=== PATIENT | male | born 1960 | race Caucasian/White ===

== ENCOUNTER → 2016-03-14 | Outpatient (CLI) | payer OTHER ==
[2016-03-14 20:40] LABS: Hemoglobin A1C 5.3 % (4.2-6.1)
== END | disposition home or self-care (01) ==
LOC: MMGSC 16:01
PROVIDERS: ATTEND Family Medicine
DX: R73.9 Hyperglycemia, unspecified (principal)
CPT/HCPCS: 36415; 83036

== ENCOUNTER → 2016-05-07 | Outpatient (CLI) | payer OTHER ==
[2016-05-07 20:04] LABS: GGT 86 U/L (15-73); Iron 208 ug/dL (49-181)
[2016-05-07 20:13] LABS: % Iron Saturation 67.8 % (20-50); Total Iron Binding Capacity 307 ug/dL (261-462)
[2016-05-07 21:24] LABS: Hepatitis B Surface Ag Index 0.09
[2016-05-07 21:30] LABS: Hepatitis B Core IgM Index 0.06
[2016-05-07 21:42] LABS: Hepatitis C Virus IgG Ab Negative (Negative); Hepatitis C Virus IgG Index 0.01
== END | disposition home or self-care (01) ==
LOC: MMGSC 10:30
PROVIDERS: ATTEND Family Medicine
DX: R94.5 Abnormal results of liver function studies (principal)
CPT/HCPCS: 36415; 80074; 82103; 82390; 82728; 82977; 83516; 83540; 83550

== ENCOUNTER → 2016-05-29 | Outpatient (CLI) | payer OTHER ==
--- NOTE | 2016-05-29 13:26 | US ---
EXAMINATION TYPE: US abdomen complete DATE OF EXAM: 05/29/2016 12:49 PM COMPARISON: NONE CLINICAL HISTORY: 56-year-old male R94.5 Elevated LFTs. TECHNIQUE: Multiple sonographic images of the abdomen were obtained. FINDINGS: TECHNOLOGIST NOTES: large patient body habitus with large belly. Imaging very limited, pancreas and aorta not seen, liver imaging limited to limited intercostal views. Liver Length: 11.3 cm Gallbladder: Surgically absent CBD: 0.5 cm Spleen: 10.0 cm Right Kidney: 12.2 x 7.2 x 5.8 cm Left Kidney: 11.5 x 6.3 x 5.3 cm Pancreas: Obscured by bowel gas Liver: limited imaging shows echogenic attenuating appearance. Gallbladder: Surgically absent CBD: wnl Spleen: wnl Right Kidney: No hydronephrosis. Left Kidney: No hydronephrosis. Upper IVC: Suboptimally visualized. Abd Aorta: Obscured by overlying bowel gas IMPRESSION: 1. Exam limitations due to large patient body habitus and bowel gas shadowing. A number of structures including the liver were not well seen. 2. However, the visualized portions of the liver do show an echogenic and attenuating appearance sugg esting marked hepatic steatosis. Correlate with LFTs, lipid profile, and patient risk factors. 3. Status post cholecystectomy.
== END | disposition home or self-care (01) ==
LOC: RADUSWWP 12:10
PROVIDERS: ATTEND Family Medicine
DX: R94.5 Abnormal results of liver function studies (principal)
CPT/HCPCS: 76700

== ENCOUNTER → 2016-06-07 | Outpatient (CLI) | payer OTHER ==
--- NOTE | 2016-06-07 15:29 | CT ---
EXAMINATION TYPE: CT ankle RT wo con DATE OF EXAM: 06/07/2016 2:52 PM COMPARISON: NONE HISTORY: Right ankle pain, flat foot, posterior tibial tendonitis, history of rheumatoid arthritis. CT DLP: 216.[address] of the right ankle with reconstruction imaging. TECHNIQUE: Unenhanced CT of the right ankle was performed with bone and soft tissue window settings s ubmitted in the axial coronal and sagittal planes. At a separate workstation 3-[id number] TR imaging was obta ined. FINDINGS: Ankle mortise is intact. Osseous structures are free of fracture. No erosive or destructive changes identified about the ankle. There is ill-definition of the tibialis posterior tendon with pa rtial tear difficult to exclude. Thickening at its insertion site is seen. The flexor digitorum longu s and flexor hallucis longus tendons are intact. There is mild teno synovitis of the peroneal tendons . Peroneal tendons are intact. There is evidence of soft tissue edema. There is flattening of the franchesca ntar arch. Small plantar calcaneal spur is detected. IMPRESSION: 1. Thickening and ill-definition of the tibialis posterior tendon is suspicious for underlying tendin itis with at least partial tear. 2. Flattening of the plantar arch with small plantar calcaneal spur identified.
== END | disposition home or self-care (01) ==
LOC: RADCTMAIN 14:28
PROVIDERS: ATTEND Orthopaedic Surgery
DX: M77.31 Calcaneal spur, right foot (principal)

== ENCOUNTER → 2016-07-06 | Outpatient (CLI) | payer OTHER ==
[2016-07-06 19:08] LABS: Bilirubin, Delta 0.5 mg/dL (0.0-0.2); Total Bilirubin 0.9 mg/dL (0.2-1.3)
== END ==
LOC: MMGSC 16:53
PROVIDERS: ATTEND Family Medicine
DX: R79.89 Other specified abnormal findings of blood chemistry (principal)
CPT/HCPCS: 36415; 80076

== ENCOUNTER → 2016-08-10 | Outpatient (CLI) | payer OTHER | END | disposition home or self-care (01) | LOC: MMGSC 16:58 | PROVIDERS: ATTEND Family Medicine | DX: L73.9 Follicular disorder, unspecified (principal) | CPT/HCPCS: 87070; 87075; 87077; 87186; 87205 ==

== ENCOUNTER → 2016-08-10 | Outpatient (CLI) | payer OTHER ==
[2016-08-10 21:46] LABS: ALT 183 U/L (21-72); AST 108 U/L (17-59); Alkaline Phosphatase 99 U/L (38-126); Bilirubin, Delta 0.3 mg/dL (0.0-0.2); Blood Urea Nitrogen 9 mg/dL (9-20); Cholesterol 192 mg/dL (<200); HDL Cholesterol 50 mg/dL (40-60); Non-African American GFR(MDRD) >60 (>60 ml/min/1.73 sqM); Total Bilirubin 1.3 mg/dL (0.2-1.3); Total Protein 6.5 g/dL (6.3-8.2); Triglycerides 234 mg/dL (<150)
== END | disposition home or self-care (01) ==
LOC: MMGSC 16:04
PROVIDERS: ATTEND Internal Medicine Gastroenterology
DX: R94.5 Abnormal results of liver function studies (principal)
CPT/HCPCS: 80076; 82105; 82465; 82565; 83718; 84478; 84520; 87070; 87075; 87077; 87186; 87205

== ENCOUNTER → 2016-10-25 | Outpatient (CLI) | payer OTHER ==
--- NOTE | 2016-10-25 19:26 | PN ---
DATE OF SERVICE: 10/25/2016 This patient is a 56-year-old gentleman who has been followed in the sleep center for treatment of obstructive sleep apnea/hypopnea syndrome. Recently patient's BiPAP unit developed some whistling which is loud; that happened after it fell. Patient has not been able to use the equipment for the last several nights. Before that, he continued to use the equipment every night , basically without any significant problems. I reviewed his chart. His weight has increased since his previous visit, from 246 pounds to 273 pounds. I checked his BiPAP unit. BiPAP pressure is 12/8 cm of water. Patient demonstrated good compliance with treatment, with usage for the last month 23 out of 30 nights for more than 4 hours. Unfortunately his apnea/hypopnea index increased to 13.7 with central apnea index of 4.8. [place] Sleepiness Scale today is 16, but again patient did not use his equipment for the last several nights. When I checked his machine, I think that the whistling is related to problems with the tube, not the machine. MEDICATIONS: 1. Fentanyl. 2. Lasix. 3. Singulair. 4. Toprol. 5. B12. During physical exam, patient is a pleasant 56-year-old gentleman in no distress. VITAL SIGNS: BP 131/72, HR 64, RR 16. Height 5 feet 10 inches. Weight 273. BMI 39.1. Temperature 97.8. Oxygen saturation at room air 94%. HEENT: PERRLA. EOMI. Evaluation of oropharynx showed tongue protrudes midline; low position of soft palate. NECK: Supple. No JVD. Thyroid is not palpable. LUNGS: Clear to percussion and to auscultation. Good air exchange. No wheezing or rhonchi. HEART: S1, S2 regular. No murmurs, gallops or rubs. ABDOMEN: Obese. EXTREMITIES: No clubbing or cyanosis. CONTRACTS ADMINISTRATOR: Awake, alert and oriented x3. Cranial nerves 2 through 7 are intact. There is no fasciculation or atrophy noted. No focal deficits observed. IMPRESSION: 1. Complex sleep apnea/hypopnea syndrome. At the pressure of 12/8, patient continues at the present time to have some abnormalities of respiration which is obstructive and also central. 2. Obesity; weight increased by about 27 pounds. 3. History of chronic obstructive pulmonary disease. 4. Hypertension. 5. Rheumatoid arthritis. 6. Low testosterone. PLAN: 1. I adjusted BiPAP pressure in the machine up to 15/11 cm of water. 2. Losing weight. 3. Continue to use BiPAP equipment every night. 4. No driving if feeling any sleepiness. 5. Prescription for all BiPAP supplies. BiPAP unit will be checked. Also he will have a new wide tube and all other necessary supplies. Follow-up visit in 2 months. Thank you very much for allowing me to participate in the management of your patient. Sincerely, Gurmeet Conde. , PhD, FAASM. Diplomat of [place] [employer], Sleep Medicine Board by [employer] [facility] [place] [facility]
== END | disposition home or self-care (01) ==
LOC: SLEEP 13:58
PROVIDERS: ATTEND Internal Medicine
DX: G47.33 Obstructive sleep apnea (adult) (pediatric) (principal); E66.9 Obesity, unspecified; I10 Essential (primary) hypertension; M06.9 Rheumatoid arthritis, unspecified

== ENCOUNTER → 2016-12-27 | Outpatient (CLI) | payer OTHER ==
--- NOTE | 2016-12-27 18:17 | PN ---
PROGRESS NOTE DATE OF SERVICE: 12/27/2016 56-year-old gentleman who has been followed in the Sleep Center for treatment of obstructive and central sleep apnea-hypopnea syndrome, complex sleep. The patient is on treatment with BiPAP and he continues to use BiPAP equipment every night for the whole night. During the previous visit, which was 2 months ago because of hypopnea index of 0.7 with central apnea index of 4.8 I increased pressure from 12/8 up to 15/11 cm of water. At the present time, patient feels that 11 cm of water is too high for him because he wakes up and feels suffocation. I reviewed the previous sleep studies again with relationship to his weight. Previous sleep study in 2014 when patient hit ____ _ pounds recommended BiPAP pressure 11/7 and increased weight 20 pounds. Today his weight is I checked his BiPAP unit today. For the last month the patient using equipment every night and /30 nights for more than 4 hours. Average usage is 6.0 hours. Pressure is 15/11. Leak is 7 L/minute which is normal. AHI for the whole month is 14.5. The central apnea index 12.5. For the last night 0.8, which is totally normal. Most of abnormal respiratory events, which have been document . The central apnea index was 12.2 out of a total apnea-hypopnea index 14.5. Subsequently, part of obstructive events only . [place] Sleepiness Scale today is a 18. PHYSICAL EXAMINATION: BP is 167/71, HR 60, RR 16, height 5 feet 10 inches, weight 267, BMI 38.1, temperature 97.7, oxygen saturation room air 95%. HEENT: PERRLA, EOMI. Evaluation of oropharynx showed extremely low position of soft palate. NECK: Supple. No JVD. Thyroid is not palpable. LUNGS: clear to percussion and to auscultation. Good air exchange. No wheezing or rhonchi. HEART: S1, S2 regular. No murmurs, gallops or rubs. ABDOMEN: Obese. Soft and nontender. Bowel sounds are present. No organomegaly appreciated. EXTREMITIES: No cyanosis or clubbing. TRADE MARK EXAMINER: Awake, alert and oriented x3. Cranial nerves II through VII intact. There is no fasciculation or atrophy noted. No focal deficits observed. IMPRESSION: 1. 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 Patient demonstrated practically 100% compliance with treatment, but still reading from the machine showed increased apnea-hypopnea index in mild range with most abnormalities related to central sleep apnea. 2. Obesity. 3. History of chronic obstructive pulmonary disease. 4. Hypertension. 5. Rheumatoid arthritis. 6. History of low testosterone. PLAN: 1. I will decrease pressure down to 11/7 cm of water and I will see patient for followup visit in 2 months. If no improvements, we may consider to proceed with BiPAP titration in the ST mode to fix his breathing. 2. Losing weight. 3. Sleep hygiene with time in bed for at least 8 hours. 4. Prescription for all necessary supplies. Sincerely, Gurmeet Conde MD, PhD, FAASM Diplomat of [place] [employer], Sleep Medicine Board by [employer] MMODL / IJN: [id number] / DAMIAN
== END ==
LOC: SLEEP 16:16
PROVIDERS: ATTEND Internal Medicine
DX: G47.33 Obstructive sleep apnea (adult) (pediatric) (principal); E66.9 Obesity, unspecified; I10 Essential (primary) hypertension; M06.9 Rheumatoid arthritis, unspecified; J44.9 Chronic obstructive pulmonary disease, unspecified

== ENCOUNTER → 2017-03-07 | Outpatient (CLI) | payer OTHER ==
[2017-03-07 21:37] LABS: ALT 96 U/L (21-72); AST 67 U/L (17-59); Alkaline Phosphatase 76 U/L (38-126); Anion Gap 9 mmol/L; Blood Urea Nitrogen 14 mg/dL (9-20); Carbon Dioxide 27 mmol/L (22-30); Chloride 103 mmol/L (98-107); Glucose 96 mg/dL (74-99); Non-African American GFR(MDRD) 59 (>60 ml/min/1.73 sqM); Potassium 5.7 mmol/L (3.5-5.1); Sodium 139 mmol/L (137-145); Total Bilirubin 1.1 mg/dL (0.2-1.3)
== END | disposition home or self-care (01) ==
LOC: MMGSC 11:04
PROVIDERS: ATTEND Family Medicine
DX: Z51.81 Encounter for therapeutic drug level monitoring (principal)
CPT/HCPCS: 36415; 80053

== ENCOUNTER → 2017-03-18 | Outpatient (CLI) | payer OTHER ==
[2017-03-18 17:11] LABS: Potassium 4.6 mmol/L (3.5-5.1)
== END | disposition home or self-care (01) ==
LOC: LABWHC1 16:41
PROVIDERS: ATTEND Family Medicine
DX: E87.5 Hyperkalemia (principal)
CPT/HCPCS: 36415; 80051

== ENCOUNTER 2017-11-07 09:51 | Inpatient (IN) | payer OTHER ==
--- NOTE | 2017-11-07 10:07 | ED ---
Extremity Problem HPI - General Chief complaint: Extremity Problem,Nontraumatic Stated complaint: foot infection Time Seen by Provider: 11/07/17 10:06 Source: patient, RN notes reviewed, old records reviewed Mode of arrival: ambulatory Limitations: no limitations - History of Present Illness Initial comments: 57-year-old male presents emergency Department with 3 days of right lower extremity swelling. Patient reports he has a history of lymphedema. He reports that he's had a history of cellulitis in this leg in the past. He was seen by his PCP yesterday and started on Rocephin IM as well as Cipro. He is had 2 doses of the antibiotic. Patient reports he's had no fever or chills. He states that he has history of high blood pressure and hyperlipidemia. No history of diabetes. He reports he has full sensation within the foot and leg. He reports that the swelling in the leg at this time is chronic however the redness extending up the leg is new. - Related Data Home Medications Medication Instructions Recorded Confirmed Dexlansoprazole [Dexilant] 60 mg PO QAM 02/01/14 02/24/17 Montelukast [Singulair] 10 mg PO HS 02/01/14 02/24/17 Hydrocodone/Chlorphen P-Stirex 5 ml PO Q8H PRN 09/07/15 02/24/17 [Tussionex] Loperamide HCl [Imodium A-D] 4 mg PO DAILY 09/07/15 02/24/17 Multivitamins, Thera [Multivitamin 1 tab PO DAILY 09/07/15 02/24/17 (formulary)] Sildenafil Citrate [Viagra] 50 mg PO DAILY PRN 09/07/15 02/24/17 Tocilizumab [Actemra] 162.5 mg SQ FR 09/07/15 02/24/17 Calcium/Magnesium/Zinc 1 tab PO DAILY 02/24/17 02/24/17 [Rzczulc-Bsqlxbzic-Qpwd Tablet] Cyanocobalamin [Vitamin B-12] 250 mcg PO DAILY 02/24/17 02/24/17 Furosemide [Lasix] 40 mg PO DAILY PRN 02/24/17 02/24/17 Metaxalone [Skelaxin] 800 mg PO BID PRN 02/24/17 02/24/17 Metoprolol Succinate (ER) [Toprol 100 mg PO HS 02/24/17 02/24/17 XL] Morphine Sulfate ER [Ms Contin] 60 mg PO Q12HR 02/24/17 02/24/17 Morphine Sulfate Ir [MSIR] 15 mg PO TID PRN 02/24/17 02/24/17 Potassium Chloride [Klor-Con 20] 20 meq PO DAILY PRN 02/24/17 02/24/17 hydrOXYzine PAMOATE [Vistaril] 100 mg PO DAILY PRN 02/24/17 02/24/17 Previous Rx's Medication Instructions Recorded Sulfamethox-Tmp 800-160Mg [Bactrim 2 tab PO Q12HR #28 tab 02/27/17 DS 800-160 mg] Allergies Allergy/AdvReac Type Severity Reaction Status Date / Time capsaicin Allergy Rash/Hives Verified 11/07/17 10:04 tramadol Allergy Unknown Verified 11/07/17 10:04 Review of Systems ROS Statement: Those systems with pertinent positive or pertinent negative responses have been documented in the HPI. ROS Other: All systems not noted in ROS Statement are negative. Past Medical History Past Medical History: COPD, GERD/Reflux, Hypertension, Rheumatoid Arthritis (RA) History of Any Multi-Drug Resistant Organisms: MRSA Date of last positivie culture/infection: 12/05/15 MDRO Source:: CHEST Past Surgical History: Cholecystectomy, Orthopedic Surgery Additional Past Surgical History / Comment(s): carpal tunnel Past Psychological History: Depression Smoking Status: Former smoker Past Alcohol Use History: Daily Past Drug Use History: None Reported - Past Family History Mother Family Medical History: COPD Father Family Medical History: COPD General Exam - General Exam Comments Initial Comments: Patient's a pleasant 57-year-old male. Alert and oriented. No significant distress. Limitations: no limitations General appearance: alert, in no apparent distress Head exam: Present: atraumatic Eye exam: Present: normal appearance, PERRL, EOMI. Absent: scleral icterus, conjunctival injection, periorbital swelling ENT exam: Present: normal exam, mucous membranes moist Neck exam: Present: normal inspection. Absent: tenderness, meningismus, lymphadenopathy Respiratory exam: Present: normal lung sounds bilaterally. Absent: respiratory distress, wheezes, rales, rhonchi, stridor Cardiovascular Exam: Present: regular rate, normal rhythm, normal heart sounds. Absent: systolic murmur, diastolic murmur, rubs, gallop, clicks Right Knee exam: Present: normal inspection, full ROM Lower Leg exam: Present: tenderness, swelling (Patient has 3+ pitting edema over the right lower extremity. Patient reports is chronic.), erythema ( Patient has extensive erythema extending up the leg.). Absent: normal inspection Ankle exam: Present: normal inspection, full ROM Foot/Toe exam: Present: normal inspection, full ROM Neurovascular tendon exam: Present: no vascular compromise (Doppler pulses obtained of her dorsalis pedis and posterior tibial. ) Gait: observed and normal Back exam: Present: normal inspection Neurological exam: Present: alert, oriented X3, CN II-XII intact Psychiatric exam: Present: normal affect, normal mood Skin exam: Present: warm, dry, intact, normal color. Absent: rash Course Vital Signs 11/07/17 10:02 Temperature 98.7 F Pulse Rate 56 L Respiratory 18 Rate Blood Pressure 121/75 O2 Sat by Pulse 95 Oximetry Medical Decision Making - Medical Decision Making Patient's a 57-year-old male presents emergency department today with chief complaint of erythema extending over the right lower extremity for the past 3 days. He is seen by his PCP yesterday and started on a.m. Rocephin and Cipro. He's had 2 doses of the antibiotic. He rice today with complaints of pain and redness going from the foot to the leg. He has had a history of lymphedema. He also history of RA and is on immunosuppressants. His evidence of lactic acid elevation of 3.1. Given 2 L bolus. White blood cell count of 13.1. Patient does meet sepsis criteria. We did ultrasound the lower extremity was negative for DVT. X-ray shows evidence of his diffuse soft tissue swelling. The same with his leg being compromised due to lymphedema and immunosuppressants like to make the Patient for IV antibiotics. Patient's case discussed with Dr. Andrew. We'll discuss the case with on-call sound physician. Patient was started on IV antibiotic, Zosyn. - Lab Data Result diagrams: 11/07/17 10:30 11/07/17 10:30 Lab Results 11/07/17 11/07/17 11/07/17 Range/Units 10:30 10:30 10:30 WBC 13.1 H (3.8-10.6) k/uL RBC 4.93 (4.30-5.90) m/uL Hgb 15.7 (13.0-17.5) gm/dL Hct 48.4 (39.0-53.0) % MCV 98.2 (80.0-100.0) fL MCH 31.8 (25.0-35.0) pg MCHC 32.4 (31.0-37.0) g/dL RDW 12.5 (11.5-15.5) % Plt Count 178 (150-450) k/uL Neutrophils % 83 % Lymphocytes % 9 % Monocytes % 5 % Eosinophils % 2 % Basophils % 0 % Neutrophils # 10.8 H (1.3-7.7) k/uL Lymphocytes # 1.2 (1.0-4.8) k/uL Monocytes # 0.6 (0-1.0) k/uL Eosinophils # 0.3 (0-0.7) k/uL Basophils # 0.0 (0-0.2) k/uL Sodium 142 (137-145) mmol/L Potassium 4.5 (3.5-5.1) mmol/L Chloride 108 H (98-107) mmol/L Carbon Dioxide 27 (22-30) mmol/L Anion Gap 7 mmol/L BUN 9 (9-20) mg/dL Creatinine 0.80 (0.66-1.25) mg/dL Est GFR (CKD-EPI)AfAm >90 (>60 ml/min/1.73 sqM) Est GFR (CKD-EPI)NonAf >90 (>60 ml/min/1.73 sqM) Glucose 107 H (74-99) mg/dL Plasma Lactic Acid Richard 3.1 H* (0.7-2.0) mmol/L Calcium 9.0 (8.4-10.2) mg/dL Total Bilirubin 0.8 (0.2-1.3) mg/dL AST 50 (17-59) U/L ALT 85 H (21-72) U/L Alkaline Phosphatase 74 (38-126) U/L Total Protein 6.2 L (6.3-8.2) g/dL Albumin 3.8 (3.5-5.0) g/dL Urine Color Urine Appearance (Clear) Urine pH (5.0-8.0) Ur Specific Robards (1.001-1.035) Urine Protein (Negative) Urine Glucose (UA) (Negative) Urine Ketones (Negative) Urine Blood (Negative) Urine Nitrite (Negative) Urine Bilirubin (Negative) Urine Urobilinogen (<2.0) mg/dL Ur Leukocyte Esterase (Negative) Urine WBC (0-5) /hpf Urine Bacteria (None) /hpf Urine Mucus (None) /hpf 11/07/17 Range/Units 10:30 WBC (3.8-10.6) k/uL RBC (4.30-5.90) m/uL Hgb (13.0-17.5) gm/dL Hct (39.0-53.0) % MCV (80.0-100.0) fL MCH (25.0-35.0) pg MCHC (31.0-37.0) g/dL RDW (11.5-15.5) % Plt Count (150-450) k/uL Neutrophils % % Lymphocytes % % Monocytes % % Eosinophils % % Basophils % % Neutrophils # (1.3-7.7) k/uL Lymphocytes # (1.0-4.8) k/uL Monocytes # (0-1.0) k/uL Eosinophils # (0-0.7) k/uL Basophils # (0-0.2) k/uL Sodium (137-145) mmol/L Potassium (3.5-5.1) mmol/L Chloride (98-107) mmol/L Carbon Dioxide (22-30) mmol/L Anion Gap mmol/L BUN (9-20) mg/dL Creatinine (0.66-1.25) mg/dL Est GFR (CKD-EPI)AfAm (>60 ml/min/1.73 sqM) Est GFR (CKD-EPI)NonAf (>60 ml/min/1.73 sqM) Glucose (74-99) mg/dL Plasma Lactic Acid Richard (0.7-2.0) mmol/L Calcium (8.4-10.2) mg/dL Total Bilirubin (0.2-1.3) mg/dL AST (17-59) U/L ALT (21-72) U/L Alkaline Phosphatase (38-126) U/L Total Protein (6.3-8.2) g/dL Albumin (3.5-5.0) g/dL Urine Color Yellow Urine Appearance Clear (Clear) Urine pH 5.5 (5.0-8.0) Ur Specific Robards 1.024 (1.001-1.035) Urine Protein 1+ H (Negative) Urine Glucose (UA) Negative (Negative) Urine Ketones Negative (Negative) Urine Blood Negative (Negative) Urine Nitrite Negative (Negative) Urine Bilirubin Negative (Negative) Urine Urobilinogen <2.0 (<2.0) mg/dL Ur Leukocyte Esterase Negative (Negative) Urine WBC 1 (0-5) /hpf Urine Bacteria Rare H (None) /hpf Urine Mucus Occasional H (None) /hpf - Radiology Data Radiology results: report reviewed Venous Doppler ultrasound is negative for DVT. X-ray of the tib-fib shows no acute osseous around. Diffuse soft tissue edema correlating for posterior medical postinfectious edema. No acute fracture or dislocation. If symptoms persist follow-up in 7-10 days could be obtained. Diffuse soft tissue edema. Disposition Clinical Impression: Cellulitis of right leg, Leukocytosis, Elevated lactic acid level Disposition: ADMITTED IP TO THIS [facility] Condition: Stable Is patient prescribed a controlled substance at d/c from ED?: No Referrals: Shawanda Pruett MD [Primary Care Provider] - 1-2 days Time of Disposition: 11:36
[2017-11-07] MEDS ORDERED: SODIUM CHLORIDE 0.9% 1,000 ML IV ONE ×2 (10:18→11:27)
[2017-11-07] MEDS ORDERED: KETOROLAC 30 MG/ML 1 ML VIAL IVP STA (10:18)
[2017-11-07] MEDS ORDERED: PIPERACILLIN-TAZOBACTAM 3.375 GM in DEXTROSE/WATER 1 50ML.BAG IVPB STA (10:18)
[2017-11-07] MEDS: SODIUM CHLORIDE 0.9% 1,000 ML IV SCH ×2 (10:40→22:03)
[2017-11-07 10:57] LABS: Basophils % (A) 0 %; Eosinophils # (A) 0.3 k/uL (0-0.7); Eosinophils % (A) 2 %; HCT 48.4 % (39.0-53.0); HGB 15.7 gm/dL (13.0-17.5); Lymphocytes # (A) 1.2 k/uL (1.0-4.8); Lymphocytes % (A) 9 %; MCH 31.8 pg (25.0-35.0); MCHC 32.4 g/dL (31.0-37.0); MCV 98.2 fL (80.0-100.0); Mean Platelet Volume 6.4; Monocytes # (A) 0.6 k/uL (0-1.0); Monocytes % (A) 5 %; Neutrophils # (A) 10.8 k/uL (1.3-7.7); Neutrophils % (A) 83 %; Platelet Count 178 k/uL (150-450); RBC 4.93 m/uL (4.30-5.90); RDW 12.5 % (11.5-15.5); WBC 13.1 k/uL (3.8-10.6)
[2017-11-07 11:05] LABS: ALT 85 U/L (21-72); AST 50 U/L (17-59); Albumin 3.8 g/dL (3.5-5.0); Alkaline Phosphatase 74 U/L (38-126); Anion Gap 7 mmol/L; Blood Urea Nitrogen 9 mg/dL (9-20); Carbon Dioxide 27 mmol/L (22-30); Chloride 108 mmol/L (98-107); Glucose 107 mg/dL (74-99); Potassium 4.5 mmol/L (3.5-5.1); Sodium 142 mmol/L (137-145); Total Bilirubin 0.8 mg/dL (0.2-1.3); Total Protein 6.2 g/dL (6.3-8.2)
[2017-11-07 11:23] LABS: Appearance,Urine Clear (Clear); Bacteria,Urine Rare /hpf; Bilirubin,Urine Negative (Negative); Blood,Urine Negative (Negative); Color,Urine Yellow; Glucose,Urine (UA) Negative (Negative); Ketones,Urine Negative (Negative); Leukocyte Esterase,Urine Negative (Negative); Mucus,Urine Occasional /hpf; Nitrite,Urine Negative (Negative); PH, Urine 5.5 (5.0-8.0); Protein,Urine 1+ (Negative); Specific Gravity,Urine 1.024 (1.001-1.035); Urobilinogen,Urine <2.0 mg/dL (<2.0); WBC,Urine 1 /hpf (0-5)
--- NOTE | 2017-11-07 11:23 | US ---
EXAMINATION TYPE: US venous doppler duplex LE RT DATE OF EXAM: 11/07/2017 11:08 AM COMPARISON: 02/24/2017 CLINICAL HISTORY: Pain. Right leg swelling and redness SIDE PERFORMED: Right TECHNIQUE: The lower extremity deep venous system is examined utilizing real time linear array sonog tre with graded compression, doppler sonography and color-flow sonography. VESSELS IMAGED: External Iliac Vein (EIV) Common Femoral Vein Deep Femoral Vein Greater Saphenous Vein * Femoral Vein Popliteal Vein Small Saphenous Vein * Proximal Calf Veins (* superficial vessels) Right Leg: Negative for DVT IMPRESSION: 1. No diagnostic evidence of DVT as visualized.
--- NOTE | 2017-11-07 11:31 | XR ---
EXAMINATION TYPE: XR tibia fibula RT DATE OF EXAM: 11/07/2017 COMPARISON: NONE HISTORY: Pain TECHNIQUE: Two views are submitted. FINDINGS: The osseous structures are intact. The joint spaces are preserved. Vascular calcifications noted. Di ffuse soft tissue edema noted. IMPRESSION: 1. No acute osseous abnormality. 2. Diffuse soft tissue edema correlate for posttraumatic or postinfectious edema.
--- NOTE | 2017-11-07 11:33 | XR ---
EXAMINATION TYPE: XR foot complete RT DATE OF EXAM: 11/07/2017 COMPARISON: NONE HISTORY: Pain TECHNIQUE: Three views are submitted. FINDINGS: The osseous structures are intact. There is no acute fracture or dislocation. Joint spaces are p reserved. Diffuse soft tissue edema noted and is arthropathy of the first no bony destructive changes . Small plantar calcaneal spur. IMPRESSION: 1. No acute fracture or dislocation. If symptoms persist, follow-up exam in 7 to 10 days could be ob tained. 2. Diffuse soft tissue edema.
[2017-11-07] MEDS ORDERED: IBUPROFEN 400 MG TAB PO PRN (11:44)
[2017-11-07] MEDS ORDERED: traMADol 50 MG TAB PO PRN ×2 (11:44→12:05)
[2017-11-07] MEDS ORDERED: oxyCODONE-APAP 5-325MG 1 EACH TAB PO PRN (11:44)
[2017-11-07] MEDS ORDERED: NALOXONE 0.4 MG/ML 1 ML VIAL IV PRN ×2 (11:44→12:43)
[2017-11-07] MEDS ORDERED: ONDANSETRON 4 MG/2 ML VIAL IVP PRN (11:44)
[2017-11-07] MEDS ORDERED: ACETAMINOPHEN TAB 325 MG TAB PO PRN (11:44)
[2017-11-07] MEDS ORDERED: LOPERAMIDE 2 MG CAP PO PRN (12:43)
[2017-11-07] MEDS ORDERED: IPRATROPIUM-ALBUTEROL 3 ML NEB INHALATION PRN (13:20)
--- NOTE | 2017-11-07 13:22 | P.HPIM ---
History of Present Illness H&P Date: 11/07/17 Chief Complaint: Right lower extremity swelling 57-year-old male with PMH of rheumatoid arthritis, hypertension, COPD, GERD presents the ED for right lower extremity swelling and redness. Patient reports chronic swelling of his right lower extremity after an inguinal hernia surgery many years ago due to lymphedema. Over the past 3 days patient reports increased redness and warmth of his right lower extremity. Patient reports going to his PCP yesterday and receiving an injection and ciprofloxacin. When the redness and swelling did not improve this morning, patient decided to go to the ED. Patient reports 3 other incidents of cellulitis, last episode in February. His PCP has been trying to set up an appointment with infectious disease Dr. Cherry. He denies any prolonged immobilization or insect bites. He denies any headache, nausea, vomiting, fever, chills, chest pain, shortness of breath, palpitations, changes in urination or bowel habits. He endorses a chronic cough. He denies dizziness, numbness weakness or tingling. Review of Systems All systems: negative Past Medical History Past Medical History: COPD, GERD/Reflux, Hypertension, Rheumatoid Arthritis (RA) History of Any Multi-Drug Resistant Organisms: MRSA Date of last positivie culture/infection: 12/05/15 MDRO Source:: CHEST Past Surgical History: Cholecystectomy, Orthopedic Surgery Additional Past Surgical History / Comment(s): carpal tunnel Past Psychological History: Depression Smoking Status: Former smoker Past Alcohol Use History: Daily Past Drug Use History: None Reported - Past Family History Mother Family Medical History: COPD Father Family Medical History: COPD Medications and Allergies Home Medications Medication Instructions Recorded Confirmed Type Dexlansoprazole [Dexilant] 60 mg PO QAM 02/01/14 11/07/17 History Montelukast [Singulair] 10 mg PO HS 02/01/14 11/07/17 History Hydrocodone/Chlorphen P-Stirex 5 ml PO Q8H PRN 09/07/15 11/07/17 History [Tussionex] Loperamide HCl [Imodium A-D] 4 mg PO DAILY PRN 09/07/15 11/07/17 History Multivitamins, Thera [Multivitamin 1 tab PO DAILY 09/07/15 11/07/17 History (formulary)] Tocilizumab [Actemra] 162.5 mg SQ PARKER 09/07/15 11/07/17 History Calcium/Magnesium/Zinc 1 tab PO BID 02/24/17 11/07/17 History [Mslxcjw-Asaknthgp-Xqzy Tablet] Cyanocobalamin [Vitamin B-12] 250 mcg PO DAILY 02/24/17 11/07/17 History Metaxalone [Skelaxin] 800 mg PO QID PRN 02/24/17 11/07/17 History Metoprolol Succinate (ER) [Toprol 100 mg PO HS 02/24/17 11/07/17 History XL] Morphine Sulfate Ir [MSIR] 15 mg PO BID PRN 02/24/17 11/07/17 History hydrOXYzine PAMOATE [Vistaril] 100 mg PO DAILY PRN 02/24/17 11/07/17 History Morphine Sulfate ER [Ms Contin] 30 mg PO Q12HR 11/07/17 11/07/17 History Sildenafil Citrate [Viagra] 100 mg PO DAILY PRN 11/07/17 11/07/17 History Allergies Allergy/AdvReac Type Severity Reaction Status Date / Time capsaicin Allergy Rash/Hives Verified 11/07/17 11:52 tramadol Allergy Vomiting Verified 11/07/17 11:52 Physical Exam Vitals: Vital Signs Temp Pulse Resp BP Pulse Ox 11/07/17 12:14 97.8 F 52 L 18 124/67 97 11/07/17 10:02 98.7 F 56 L 18 121/75 95 Intake and Output 11/06/17 11/07/17 11/07/17 22:59 06:59 14:59 Other: Weight 117.934 kg General: [non toxic], [no distress], [appears at stated age] Derm: [warm], [dry] Head: [atraumatic], [normocephalic], [symmetric] Eyes: [EOMI], [no lid lag], [anicteric sclera] Mouth: [no lip lesion], [mucus membranes moist] Cardiovascular: [S1S2 reg], [no murmur], DP pulses + in LLE Lungs: [CTA bilateral], [no rhonchi, no rales] , [no accessory muscle use] Abdominal: [soft], [ nontender to palpation], [no guarding], [no appreciable organomegaly] Ext: [no gross muscle atrophy], [RLE 2+ edema with erythema and warmth.] Neuro: [ CN II-XI grossly intact], [no focal neuro deficits] Psych: [Alert], [oriented], [appropriate affect] Results CBC & Chem 7: 11/07/17 10:30 11/07/17 10:30 Labs: Abnormal Lab Results - Last 24 Hours (Table) 11/07/17 11/07/17 11/07/17 Range/Units 10:30 10:30 10:30 WBC 13.1 H (3.8-10.6) k/uL Neutrophils # 10.8 H (1.3-7.7) k/uL Chloride 108 H (98-107) mmol/L Glucose 107 H (74-99) mg/dL Plasma Lactic Acid Richard 3.1 H* (0.7-2.0) mmol/L ALT 85 H (21-72) U/L Total Protein 6.2 L (6.3-8.2) g/dL Urine Protein (Negative) Urine Bacteria (None) /hpf Urine Mucus (None) /hpf 11/07/17 Range/Units 10:30 WBC (3.8-10.6) k/uL Neutrophils # (1.3-7.7) k/uL Chloride (98-107) mmol/L Glucose (74-99) mg/dL Plasma Lactic Acid Richard (0.7-2.0) mmol/L ALT (21-72) U/L Total Protein (6.3-8.2) g/dL Urine Protein 1+ H (Negative) Urine Bacteria Rare H (None) /hpf Urine Mucus Occasional H (None) /hpf Comments: Foot x-ray report reviewed Venous US: report reviewed Thrombosis Risk Factor Assmnt - Choose All That Apply Any of the Below Risk Factors Present?: Yes Each Factor Represents 1 point: Abnormal pulmonary function (COPD), Age 41-60 years Other Risk Factors: No Thrombosis Risk Factor Assessment Total Risk Factor Score: 2 Thrombosis Risk Factor Assessment Level: Low Risk Assessment and Plan Assessment: Assessment and Plan 1. RLE Cellulitis: Patient does not meet SIRS criteria. VSS. Lactic acid 3.1. Afebrile but leukocytosis of 13.1. Venous duplex negative for DVT. XR confirms soft tissue edema. Pain management with Percocet, Tylenol and Motrin. Continue Zosyn 3.375 mg IV TID. Continue NS 100 ml/h. FU BCx, repeat Lactic acid, ID consult 2. RA: Takes Tocilizumab 162 mg SQ QSun. Pain management with MSIR 45 mg PO BID , sees Dr. oDrado outPT. Follows Rheumatology outPT. 3. HTN: BP 124/67. Continue Metoprolol 100 mg PO QHS. Monitor vitals, adjust medications at necessary. 4. COPD: No inhalers at home. Continue Singulair 10 mg PO QHS. DuoNeb Q6 PRN for SOB. 5. GERD: Protonix 40 mg PO QAM. 6. DVT Prophylaxis: Heparin 5000 units SQ BID. The patient is admitted with an anticipated greater than 2 midnight stay for evaluation of Cellulitis Surrogate decision-maker: CODE STATUS: Full code DVT prophylaxis: Heparin Anticipated discharge date: [address]: Home
[2017-11-07] MEDS: MORPHINE SULFATE IR 15 MG TABLET PO SCH ×2 (13:38→16:48)
[2017-11-07] MEDS ORDERED: PIPERACILLIN-TAZOBACTAM 3.375 GM in DEXTROSE/WATER 1 50ML.BAG IVPB SCH (17:00)
[2017-11-07] MEDS: HEPARIN SODIUM,PORCINE 5,000 UNIT/ML 1 ML VIAL SQ SCH (21:21)
[2017-11-07] MEDS: METOPROLOL SUCCINATE (ER) 100 MG TAB.ER.24H PO SCH (21:23)
[2017-11-07] MEDS: MONTELUKAST 10 MG TAB PO SCH (21:24)
[2017-11-07] MEDS: MORPHINE SULFATE ER 30 MG TABLET PO SCH (21:24)
[2017-11-07] MEDS ORDERED: VANCOMYCIN IV PER PHARMACY 1 EACH MISC MISCELLANE PRN (22:29)
--- NOTE | 2017-11-07 22:47 | P.CONS ---
History of Present Illness - Reason for Consult Consult date: 11/07/17 - Chief Complaint Pain and swelling to the right leg - History of Present Illness 57-year-old male with history of obesity, COPD and rheumatoid arthritis presents for a third bout of significant swelling pain and erythema in his right foot and lower extremity. The patient relates that his first bout of cellulitis and lymphangitis to the right upper extremity was just a few years ago. He relates that he had had some abdominal surgery and there was some damage to the lymph nodes into the right pelvis. Afterward he developed swelling to the right lower extremity and was diagnosed with some lymphedema. He utilizes a stocking pump to the right lower extremity. Despite that he did have a bout of cellulitis earlier this year short hospitalization. He continues to elevate the limb, wear compression stocking and monitor himself. He relates despite utilizing the sequential pump he started developing sudden onset of worsening swelling, erythema and constantly sought care to prevent further complication. He has not had high-grade fever chills or rigors but felt warm and flushed. He has no recollection of injury or trauma to the foot or limb. He does relate that he was seen by the [facility] and underwent endovascular treatment of his incompetent veins were he was having reflux. This was performed to both lower extremities and left leg had significant improvement on the right leg has continued to have difficulties. He does have a known history of rheumatoid arthritis, and does have Actemera injections given for his rheumatoid arthritis. He also does take Singulair for his pulmonary disease. The patient is not on steroids and has not been recently and does not take methotrexate. Review of Systems Pleasant 57-year-old male who is not in jeet distress HEENT:Denies headache or acute visual change. Denies sinus or mouth discomforts. Denies neck stiffness or pain. Denies significant oral cavity pain. Denies difficulty on swallowing. Lungs: Denies significant shortness of breath, cough, sputum production, or hemoptysis. Cardiovascular: Denies significant shortness of breath, chest pain, chest wall pain, orthopnea, dyspnea on exertion, syncope Gastrointestinal:Denies nausea, vomiting, diarrhea, constipation, hematemesis, melena, hematochezia. No no significant change of bowel habit noticed. Musculoskeletal: Has significant chronic musculoskeletal pain from his RA, he is a chronic right lower extremity swelling Skin: As per the HPI Neuro: Denies headache or visual change. Denies any new onset weakness or difficulty with ambulation. Denies falls or seizures. Psychiatric:Denies anxiety or depression. Endocrine: Denies significant fatigue, denies significant weight loss or weight gain. Past Medical History Past Medical History: COPD, GERD/Reflux, Hypertension, Rheumatoid Arthritis (RA) Additional Past Medical History / Comment(s): Chronic lymphedema, R leg edema, past R lower leg cellulitis, venous insufficiency R leg, chronic generalized pain from RA, immunosuppressed, IBS with chronic diarrhea, chronic allergies, cholecystitis/lithiasis with sepsis-had cholecystectomy. History of Any Multi-Drug Resistant Organisms: MRSA Year Discovered:: 12/05/15 MDRO Source:: CHEST Past Surgical History: Cholecystectomy, Orthopedic Surgery Additional Past Surgical History / Comment(s): carpal tunnel Past Anesthesia/Blood Transfusion Reactions: No Reported Reaction Past Psychological History: Depression Additional Psychological History / Comment(s): and lives in the family home with the . 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 Stop tobacco use 8 years ago. Utilizes his BiPAP for his sleep apnea. Denies significant alcohol or recreational drug use. No animals in the home. 2 adult children one son has developed a brain tumor. Smoking Status: Former smoker Past Alcohol Use History: Daily Past Drug Use History: None Reported - Past Family History Mother Family Medical History: COPD Additional Family Medical History / Comment(s): Mother was a smoker. Father Family Medical History: COPD Additional Family Medical History / Comment(s): Father was a smoker. Medications and Allergies Home Medications and Allergies Comment(s): Current Medications Acetaminophen (Tylenol Tab) 650 mg PO Q6HR PRN PRN Reason: Mild Pain or Fever > 100.5 Albuterol/Ipratropium (Duoneb 0.5 Mg-3 Mg/3 Ml Soln) 3 ml INHALATION RT-QID PRN PRN Reason: Shortness Of Breath Or Wheezing Ceftriaxone Sodium (Rocephin) 2,000 mg IVP Q24HR DEV Heparin Sodium (Porcine) (Heparin) 5,000 unit SQ Q12HR DEV Last Admin: 11/07/17 21:21 Dose: 5,000 unit Sodium Chloride (Saline 0.9%) 1,000 mls @ 100 mls/hr IV .Q10H DEV Last Admin: 11/07/17 22:03 Dose: 100 mls/hr Vancomycin HCl 2,000 mg/ (Sodium Chloride) 500 mls @ 167 mls/hr IVPB Q12HR [facility] Ibuprofen (Motrin) 400 mg PO Q6HR PRN PRN Reason: Mild Pain or Fever > 100.5 Loperamide HCl (Imodium) 2 mg PO Q2HR PRN PRN Reason: Loose Stool Metoprolol Succinate (Toprol Xl) 100 mg PO HS [facility] Last Admin: 11/07/17 21:23 Dose: 100 mg Miscellaneous Information (Pharmacy To Dose Iv Vancomycin) 1 each MISCELLANE DIRECTED PRN PRN Reason: Per Protocol Montelukast Sodium (Singulair) 10 mg PO HS [facility] Last Admin: 11/07/17 21:24 Dose: 10 mg Morphine Sulfate (Ms Contin) 30 mg PO Q12HR [facility] Last Admin: 11/07/17 21:24 Dose: 30 mg Morphine Sulfate (Msir) 15 mg PO BID@1300,1700 [facility] Last Admin: 11/07/17 16:48 Dose: 15 mg Naloxone HCl (Narcan) 0.2 mg IV Q2M PRN PRN Reason: Opioid Reversal Ondansetron HCl (Zofran) 4 mg IVP Q8HR PRN PRN Reason: Nausea And Vomiting Oxycodone/Acetaminophen (Percocet 5-325) 1 each PO Q4HR PRN PRN Reason: Severe Pain Home Medications Medication Instructions Recorded Confirmed Type Dexlansoprazole [Dexilant] 60 mg PO QAM 02/01/14 11/07/17 History Montelukast [Singulair] 10 mg PO 02/01/14 11/07/17 History Hydrocodone/Chlorphen P-Stirex 5 ml PO Q8H PRN 09/07/15 11/07/17 History [Tussionex] Loperamide HCl [Imodium A-D] 4 mg PO DAILY PRN 09/07/15 11/07/17 History Multivitamins, Thera [Multivitamin 1 tab PO DAILY 09/07/15 11/07/17 History (formulary)] Tocilizumab [Actemra] 162.5 mg SQ PARKER 09/07/15 11/07/17 History Calcium/Magnesium/Zinc 1 tab PO BID 02/24/17 11/07/17 History [Fllwhax-Ayxkhkfdz-Dsay Tablet] Cyanocobalamin [Vitamin B-12] 250 mcg PO DAILY 02/24/17 11/07/17 History Metaxalone [Skelaxin] 800 mg PO QID PRN 02/24/17 11/07/17 History Metoprolol Succinate (ER) [Toprol 100 mg PO HS 02/24/17 11/07/17 History XL] Morphine Sulfate Ir [MSIR] 15 mg PO BID PRN 02/24/17 11/07/17 History hydrOXYzine PAMOATE [Vistaril] 100 mg PO DAILY PRN 02/24/17 11/07/17 History Morphine Sulfate ER [Ms Contin] 30 mg PO Q12HR 11/07/17 11/07/17 History Sildenafil Citrate [Viagra] 100 mg PO DAILY PRN 11/07/17 11/07/17 History Allergies Allergy/AdvReac Type Severity Reaction Status Date / Time capsaicin Allergy Rash/Hives Verified 11/07/17 11:52 tramadol Allergy Vomiting Verified 11/07/17 11:52 Physical Exam Vitals: Vital Signs Temp Pulse Pulse Resp BP BP Pulse Ox 11/07/17 22:22 98.0 F 56 L 18 144/81 96 11/07/17 19:55 54 L 121/70 11/07/17 13:42 97.6 F 67 18 128/74 97 11/07/17 12:14 97.8 F 52 L 18 124/67 97 11/07/17 10:02 98.7 F 56 L 18 121/75 95 Intake and Output 11/07/17 11/07/17 11/07/17 06:59 14:59 22:59 Other: Voiding Method Toilet # Voids 1 # Bowel Movements 0 Weight 117.934 kg Pleasant 57-year-old male not in acute distress at this time, but is worried about his right lower extremity HEENT: Anicteric conjunctiva are pink and moist nasal mucosa grossly intact without significant lesions, there is no thrush. Neck: The neck is supple without significant lymphadenopathy or thyromegaly. Lungs: Good bilateral air entry without significant crackles or wheezing. There is no significant bronchial sounds. There is no egophony or dullness. Heart: Regular rate and rhythm with an audible S1-S2, no S3 no S4. There is no significant murmur click or rub, PMI was nondisplaced. Abdomen: Positive bowel sounds soft and nontender without palpable masses or organomegaly. There was no guarding or rebound. Extremities: The upper extremities have excellent pulses they are symmetric, no significant petechiae or telangiectasia. Left lower extremity has only trace pedal edema without significant lesions erythema or cellulitis. Right lower extremity is grossly swollen compared to the left. The foot is very swollen and there some tenderness through dense erythema from the toes to just below the knee. In the medial aspect of the right thigh is evidence of some erythema is minimally tender. There is no significant right inguinal lymphadenopathy and no tenderness into the right groin. No other abnormal lymph nodes are noted. Neuro: Awake alert oriented to person place and time. There are no acute new gross focal sensory motor deficits. Results CBC & Chem 7: 11/07/17 10:30 11/07/17 10:30 Labs: Abnormal Lab Results - Last 24 Hours (Table) 11/07/17 11/07/17 11/07/17 Range/Units 10:30 10:30 10:30 WBC 13.1 H (3.8-10.6) k/uL Neutrophils # 10.8 H (1.3-7.7) k/uL Chloride 108 H (98-107) mmol/L Glucose 107 H (74-99) mg/dL Plasma Lactic Acid Richard 3.1 H* (0.7-2.0) mmol/L ALT 85 H (21-72) U/L Total Protein 6.2 L (6.3-8.2) g/dL Urine Protein (Negative) Urine Bacteria (None) /hpf Urine Mucus (None) /hpf 11/07/17 Range/Units 10:30 WBC (3.8-10.6) k/uL Neutrophils # (1.3-7.7) k/uL Chloride (98-107) mmol/L Glucose (74-99) mg/dL Plasma Lactic Acid Richard (0.7-2.0) mmol/L ALT (21-72) U/L Total Protein (6.3-8.2) g/dL Urine Protein 1+ H (Negative) Urine Bacteria Rare H (None) /hpf Urine Mucus Occasional H (None) /hpf Assessment and Plan (1) Cellulitis of right lower extremity Narrative/Plan: 57-year-old male who has a history of multiple medical troubles including rheumatoid arthritis on immunosuppressant therapy has a known history of chronic lymphedema and venous stasis of the right lower extremity with 2 prior bouts of cellulitis to the right lower extremity. At this time he has his third bout of cellulitis with lymphangitis in his ascending onto the medial thigh. He is not having high-grade fever but does feel somewhat poorly. In this very concerned that the infection does not worsen or become as severe as his first event. His cultures been reviewed and he does have a history of Streptococcus infection, and he is also had MRSA infection on other parts of his body but not on the leg. With these culture results vancomycin and Rocephin will be utilized until we have some further data. Elevation of the limb will be utilized to help with the edema and a Silvadene wrap will also be put into place. The patient relates he is up-to-date with his vaccines. Cultures are in process. Leukocytosis is due to the cellulitis and ascending lymphangitis as is the elevated lactic acid has improved with hydration and starting antibiotic therapy. The patient's immunosuppressive medicines need to be held until the current infectious process resolved. We'll add a multivitamin with zinc to help with his healing process. Current Visit: Yes Status: Acute Code(s): L03.115 - CELLULITIS OF RIGHT LOWER LIMB SNOMED Code(s): 267110411 (2) Acute lymphangitis of right lower extremity Current Visit: Yes Status: Acute Code(s): L03.125 - ACUTE LYMPHANGITIS OF RIGHT LOWER LIMB SNOMED Code(s): 9204113 (3) Rheumatoid arthritis Current Visit: Yes Status: Acute Code(s): M06.9 - RHEUMATOID ARTHRITIS, UNSPECIFIED SNOMED Code(s): 08639754 (4) Immunosuppressed status Current Visit: Yes Status: Acute Code(s): D89.9 - DISORDER INVOLVING THE IMMUNE MECHANISM, UNSPECIFIED SNOMED Code(s): 03575725
[2017-11-07] MEDS: cefTRIAXone IN SWFI 2,000 MG/20 ML SYRINGE IVP SCH (23:08)
[2017-11-07] MEDS: VANCOMYCIN 2,000 MG in SODIUM CHLORIDE 0.9% 500 ML IVPB SCH (23:10)
[2017-11-08] MEDS ORDERED: PANTOPRAZOLE 40 MG TABLET PO SCH (07:30)
[2017-11-08] MEDS: cefTRIAXone IN SWFI 2,000 MG/20 ML SYRINGE IVP SCH (07:40)
[2017-11-08] MEDS: MORPHINE SULFATE ER 30 MG TABLET PO SCH ×2 (07:41→21:14)
[2017-11-08] MEDS: HEPARIN SODIUM,PORCINE 5,000 UNIT/ML 1 ML VIAL SQ SCH ×2 (07:41→21:14)
[2017-11-08] MEDS: SODIUM CHLORIDE 0.9% 1,000 ML IV SCH ×2 (07:41→15:45)
[2017-11-08] MEDS: VANCOMYCIN 2,000 MG in SODIUM CHLORIDE 0.9% 500 ML IVPB SCH ×2 (07:42→21:15)
[2017-11-08 08:11] LABS: Basophils % (A) 1 %; Eosinophils # (A) 0.2 k/uL (0-0.7); Eosinophils % (A) 4 %; HCT 45.8 % (39.0-53.0); HGB 15.3 gm/dL (13.0-17.5); Lymphocytes # (A) 1.3 k/uL (1.0-4.8); Lymphocytes % (A) 21 %; MCH 31.9 pg (25.0-35.0); MCHC 33.5 g/dL (31.0-37.0); MCV 95.3 fL (80.0-100.0); Mean Platelet Volume 6.7; Monocytes # (A) 0.5 k/uL (0-1.0); Monocytes % (A) 7 %; Neutrophils # (A) 3.9 k/uL (1.3-7.7); Neutrophils % (A) 64 %; Platelet Count 177 k/uL (150-450); RBC 4.81 m/uL (4.30-5.90); RDW 12.3 % (11.5-15.5); WBC 6.1 k/uL (3.8-10.6)
[2017-11-08 08:21] LABS: ALT 83 U/L (21-72); AST 55 U/L (17-59); Albumin 3.5 g/dL (3.5-5.0); Alkaline Phosphatase 70 U/L (38-126); Anion Gap 4 mmol/L; Blood Urea Nitrogen 9 mg/dL (9-20); Calcium 8.9 mg/dL (8.4-10.2); Carbon Dioxide 27 mmol/L (22-30); Chloride 110 mmol/L (98-107); Glucose 97 mg/dL (74-99); Potassium 4.7 mmol/L (3.5-5.1); Sodium 141 mmol/L (137-145); Total Bilirubin 0.6 mg/dL (0.2-1.3); Total Protein 5.9 g/dL (6.3-8.2)
[2017-11-08] MEDS ORDERED: PANTOPRAZOLE 40 MG/10 ML VIAL IV SCH (09:00)
[2017-11-08] MEDS ORDERED: MULTIVITAMINS, THERA 1 EACH TAB PO SCH (12:00)
--- NOTE | 2017-11-08 12:43 | P.PN ---
Subjective Progress Note Date: 11/08/17 Principal diagnosis: Right lower extremity redness and swelling Patient was seen and examined. No acute events overnight. Patient reports improvement in his right lower extremity swelling. Able to move his toes freely. He denies any fever, chills, cough, chest pain, shortness of breath, palpitations. Objective - Vital Signs Vital signs: Vital Signs Temp 97.0 F L 11/08/17 06:01 Pulse 46 L 11/08/17 06:01 Resp 17 11/08/17 06:01 BP 112/74 11/08/17 06:01 Pulse Ox 94 L 11/08/17 06:01 Intake & Output 11/07/17 11/08/17 11/08/17 18:59 06:59 18:59 Intake Total 200 Balance 200 Weight 117.934 kg Intake: Oral 200 Other: Voiding Method Toilet # Voids 1 2 2 # Bowel Movements 0 - Exam General: [non toxic], [no distress], [appears at stated age] Derm: [warm], [dry] Head: [atraumatic], [normocephalic], [symmetric] Eyes: [EOMI], [no lid lag], [anicteric sclera] Mouth: [no lip lesion], [mucus membranes moist] Cardiovascular: [S1S2 reg], [no murmur], DP pulses + in LLE Lungs: [CTA bilateral], [no rhonchi, no rales] , [no accessory muscle use] Abdominal: [soft], [ nontender to palpation], [no guarding], [no appreciable organomegaly] Ext: [no gross muscle atrophy], [RLE 1+ edema, wrapped with erythema extending from the wrap.] Neuro: [ CN II-XI grossly intact], [no focal neuro deficits] Psych: [Alert], [oriented], [appropriate affect] - Labs CBC & Chem 7: 11/08/17 07:53 11/08/17 07:53 Labs: Abnormal Lab Results - Last 24 Hours (Table) 11/08/17 Range/Units 07:53 Chloride 110 H (98-107) mmol/L ALT 83 H (21-72) U/L Total Protein 5.9 L (6.3-8.2) g/dL Assessment and Plan Assessment: Assessment and Plan 1. RLE Cellulitis: Patient does not meet SIRS criteria. VSS. Lactic acid 3.1 on admission, repeat is 1.9. Leukocytosis of 13.1 on admission resolved today. Venous duplex negative for DVT. XR confirms soft tissue edema. Pain management with Percocet, Tylenol and Motrin. ID consulted, Abx changed to IV Vancomycin and Ceftriaxone for coverage of MRSA. RLE elevation. Compression stockings. Continue NS 100 ml/h. FU BCx, ID consult 2. RA: Takes Tocilizumab 162 mg SQ QSun. Pain management with MSIR 45 mg PO BID , sees Dr. Dorado outPT. Follows Rheumatology outPT. 3. HTN: BP 112/74. Continue Metoprolol 100 mg PO QHS. Monitor vitals, adjust medications at necessary. 4. COPD: No inhalers at home. Continue Singulair 10 mg PO QHS. DuoNeb Q6 PRN for SOB. 5. GERD: Protonix 40 mg PO QAM. 6. DVT Prophylaxis: Heparin 5000 units SQ BID.
[2017-11-08] MEDS: MORPHINE SULFATE IR 15 MG TABLET PO SCH ×2 (13:18→17:47)
[2017-11-08] MEDS ORDERED: SILVER sulfADIAZINE Cream 400 GM 1 APPLIC APPLIC TOPICAL SCH (15:47)
[2017-11-08] MEDS: METOPROLOL SUCCINATE (ER) 100 MG TAB.ER.24H PO SCH (21:13)
[2017-11-08] MEDS: MONTELUKAST 10 MG TAB PO SCH (21:13)
[2017-11-08] MEDS: PANTOPRAZOLE 40 MG TABLET PO SCH (22:06)
[2017-11-09] MEDS: SODIUM CHLORIDE 0.9% 1,000 ML IV SCH (04:29)
[2017-11-09 06:29] VITALS: BP 147/71; PULSE 55; RESP 16; TEMP 97.9
[2017-11-09] MEDS: MORPHINE SULFATE ER 30 MG TABLET PO SCH (08:37)
[2017-11-09] MEDS: HEPARIN SODIUM,PORCINE 5,000 UNIT/ML 1 ML VIAL SQ SCH (08:39)
[2017-11-09] MEDS: cefTRIAXone IN SWFI 2,000 MG/20 ML SYRINGE IVP SCH (08:39)
[2017-11-09] MEDS: VANCOMYCIN 2,000 MG in SODIUM CHLORIDE 0.9% 500 ML IVPB SCH (08:39)
[2017-11-09] MEDS: PANTOPRAZOLE 40 MG TABLET PO SCH (08:39)
--- NOTE | 2017-11-09 11:48 | P.DS ---
Providers Date of admission: 11/07/17 11:40 Expected date of discharge: 11/09/17 Attending physician: Rodolfo Padron MD Consults: 11/07/17 13:18 Consult Physician Urgent Consulting Provider: Hernandez Cherry Consult Reason/Comments: RLE cellulitis, recurrent Do you want consulting provider notified?: Yes Primary care physician: Shawanda Pruett - Discharge Diagnosis(es) (1) Cellulitis of right lower extremity Current Visit: Yes Status: Acute (2) Rheumatoid arthritis Current Visit: Yes Status: Acute (3) COPD (chronic obstructive pulmonary disease) Current Visit: No Status: Chronic (4) GERD (gastroesophageal reflux disease) Current Visit: No Status: Chronic (5) Hypertension Current Visit: No Status: Chronic Hospital Course: 57-year-old male with PMH of rheumatoid arthritis, hypertension, COPD, GERD presents the ED for right lower extremity swelling and redness. Patient reports chronic swelling of his right lower extremity after an inguinal hernia surgery many years ago due to lymphedema. Over the past 3 days patient reports increased redness and warmth of his right lower extremity. Patient reports going to his PCP yesterday and receiving an injection and ciprofloxacin. When the redness and swelling did not improve this morning, patient decided to go to the ED. Patient reports 3 other incidents of cellulitis, last episode in February. His PCP has been trying to set up an appointment with infectious disease Dr. Cherry. He denies any prolonged immobilization or insect bites. With regard to the right lower extremity cellulitis, patient did not meet SIRS criteria. His vital signs were within normal limits throughout admission. His lactic acid was 3.1 on admission. Repeat was 1.9. Patient had a mild leukocytosis of 13.1 on admission which resolved on the second day. Venous duplex was negative for DVT. Right foot x-ray showed soft tissue edema. Pain was managed with Percocet, Tylenol and Motrin. Infectious disease was consulted and recommended changing IV antibiotics to vancomycin and ceftriaxone for coverage of MRSA. Antibiotics were the escalated by mouth Bactrim on discharge. Otherwise his home medications was resumed for his rheumatoid arthritis, hypertension, COPD, GERD. Patient was seen and examined prior to discharge. Patient reported great improvement in his swelling. Patient denies any foot pain. Patient denies any fever or chills. General: [non toxic], [no distress], [appears at stated age] Derm: [warm], [dry] Head: [atraumatic], [normocephalic], [symmetric] Eyes: [EOMI], [no lid lag], [anicteric sclera] Mouth: [no lip lesion], [mucus membranes moist] Cardiovascular: [S1S2 reg], [no murmur], DP pulses + in LLE Lungs: [CTA bilateral], [no rhonchi, no rales] , [no accessory muscle use] Abdominal: [soft], [ nontender to palpation], [no guarding], [no appreciable organomegaly] Ext: [no gross muscle atrophy], [RLE 1+ edema, improving erythema.] Neuro: [ CN II-XI grossly intact], [no focal neuro deficits] Psych: [Alert], [oriented], [appropriate affect] Assessment and Plan 1. RLE Cellulitis: Patient does not meet SIRS criteria. VSS. Lactic acid 3.1 on admission, repeat is 1.9. Leukocytosis of 13.1 on admission resolved on day 2. Venous duplex negative for DVT. XR confirms soft tissue edema. Pain management with Percocet, Tylenol and Motrin. ID consulted, Abx changed to IV Vancomycin and Ceftriaxone for coverage of MRSA. Will DC IV Abx and DC patient on Bactrim DS BID to complete a total of 14 days. RLE elevation. BCx prelim negative. Compression stockings. 2. RA: Takes Tocilizumab 162 mg SQ QSun. Pain management with MSIR 45 mg PO BID , sees Dr. Dorado outPT. Follows Rheumatology outPT. 3. HTN: BP 147/71. Continue Metoprolol 100 mg PO QHS. Monitor vitals, adjust medications at necessary. 4. COPD: No inhalers at home. Continue Singulair 10 mg PO QHS. DuoNeb Q6 PRN for SOB. 5. GERD: Protonix 40 mg PO QAM. 6. DVT Prophylaxis: Heparin 5000 units SQ BID. This complex discharge took greater than 30 minutes. Pertinent Studies: Foot XR Venous duplex Patient Condition at Discharge: Stable Plan - Discharge Summary Discharge Rx Participant: No New Discharge Prescriptions: New SILVER sulfADIAZINE Cream [Silvadene 1% Cream] 1 applic TOPICAL DAILY #1 tube Sulfamethox-Tmp 800-160Mg [Bactrim DS 800-160 mg] 1 tab PO Q12HR #24 tab Continue Montelukast [Singulair] 10 mg PO HS Dexlansoprazole [Dexilant] 60 mg PO QAM Loperamide HCl [Imodium A-D] 4 mg PO DAILY PRN PRN Reason: Loose Stool Multivitamins, Thera [Multivitamin (formulary)] 1 tab PO DAILY Tocilizumab [Actemra] 162.5 mg SQ PARKER Metoprolol Succinate (ER) [Toprol XL] 100 mg PO HS Morphine Sulfate Ir [MSIR] 15 mg PO BID PRN PRN Reason: Breakthrough Pain Metaxalone [Skelaxin] 800 mg PO QID PRN PRN Reason: Pain Calcium/Magnesium/Zinc [Kywxixy-Tgheaasgo-Mukf Tablet] 1 tab PO BID Cyanocobalamin [Vitamin B-12] 250 mcg PO DAILY hydrOXYzine PAMOATE [Vistaril] 100 mg PO DAILY PRN PRN Reason: Itching Morphine Sulfate ER [Ms Contin] 30 mg PO Q12HR Sildenafil Citrate [Viagra] 100 mg PO DAILY PRN PRN Reason: ED Discontinued Hydrocodone/Chlorphen P-Stirex [Tussionex] 5 ml PO Q8H PRN PRN Reason: Cough Discharge Medication List Dexlansoprazole [Dexilant] 60 mg PO QAM 02/01/14 [History] Montelukast [Singulair] 10 mg PO HS 02/01/14 [History] Loperamide HCl [Imodium A-D] 4 mg PO DAILY PRN 09/07/15 [History] Multivitamins, Thera [Multivitamin (formulary)] 1 tab PO DAILY 09/07/15 [History ] Tocilizumab [Actemra] 162.5 mg SQ PARKER 09/07/15 [History] Calcium/Magnesium/Zinc [Fnnuwcl-Nrwdgfype-Zjfl Tablet] 1 tab PO BID 02/24/17 [ History] Cyanocobalamin [Vitamin B-12] 250 mcg PO DAILY 02/24/17 [History] Metaxalone [Skelaxin] 800 mg PO QID PRN 02/24/17 [History] Metoprolol Succinate (ER) [Toprol XL] 100 mg PO HS 02/24/17 [History] Morphine Sulfate Ir [MSIR] 15 mg PO BID PRN 02/24/17 [History] hydrOXYzine PAMOATE [Vistaril] 100 mg PO DAILY PRN 02/24/17 [History] Morphine Sulfate ER [Ms Contin] 30 mg PO Q12HR 11/07/17 [History] Sildenafil Citrate [Viagra] 100 mg PO DAILY PRN 11/07/17 [History] SILVER sulfADIAZINE Cream [Silvadene 1% Cream] 1 applic TOPICAL DAILY #1 tube [Rx] Sulfamethox-Tmp 800-160Mg [Bactrim DS 800-160 mg] 1 tab PO Q12HR #24 tab [Rx] Follow up Appointment(s)/Referral(s): Shawanda Pruett MD [Primary Care Provider] - 1-2 days Hernandez Cherry MD [STAFF PHYSICIAN] - 2 Weeks Activity/Diet/Wound Care/Special Instructions: Diet: HEART healthy Please follow-up with your PCP within 1-2 days of discharge. Please follow-up with infectious disease Dr. Cherry within 2 weeks of discharge. Please take all medications as advised. Come to the ED or call 911 for worsening fevers greater than 100.4F, chest pain , shortness breath, palpitations. Note to PCP: Please follow up with Blood cultures (prelim negative on discharge) . Discharge Disposition: HOME SELF-CARE Pending Studies Pending Results: Blood culture to be followed by PCP.
[2017-11-10] MEDS ORDERED: VANCOMYCIN TROUGH DUE 1 EACH MISC MISCELLANE ONE (08:00)
== END 2017-11-09 12:49 | disposition home or self-care (01) | DRG 603 ==
LOC: EC 09:51 → 4MS4W 11:40
PROVIDERS: ADMIT Family Medicine; ATTEND Family Medicine
DX: L03.115 Cellulitis of right lower limb (principal); E78.5 Hyperlipidemia, unspecified; F32.9 Major depressive disorder, single episode, unspecified; G47.30 Sleep apnea, unspecified; I10 Essential (primary) hypertension; I89.0 Lymphedema, not elsewhere classified; J44.9 Chronic obstructive pulmonary disease, unspecified; K21.9 Gastro-esophageal reflux disease without esophagitis; M06.9 Rheumatoid arthritis, unspecified; E66.9 Obesity, unspecified; G89.29 Other chronic pain; K58.0 Irritable bowel syndrome with diarrhea; D72.829 Elevated white blood cell count, unspecified; Z87.891 Personal history of nicotine dependence; Z68.36 Body mass index [BMI] 36.0-36.9, adult; Z86.14 Personal history of Methicillin resistant Staphylococcus aureus infection; Z90.49 Acquired absence of other specified parts of digestive tract; Z82.5 Family history of asthma and other chronic lower respiratory diseases
CPT/HCPCS: 36415; 80053; 81001; 83605; 85025; 87040; 96365; 96366; 96375; 99285

== ENCOUNTER → 2018-02-06 | Outpatient (CLI) | payer OTHER ==
--- NOTE | 2018-02-06 18:43 | PN ---
PROGRESS NOTE DATE OF SERVICE: 02/06/2018 57-year-old gentleman has been followed in [facility] Center for treatment of obstructive sleep apnea-hypopnea syndrome. Patient continued to use his BiPAP equipment every night for the whole night without significant problems. According to his , no snoring while he is on treatment with the machine. I checked his BiPAP unit. Usage is for the last 6 months 100% 180 out of 180 nights and 171 nights out of 180 nights more than 4 hours. Average usage is 6.9 hours. Pressure is 13/9 cm of water. Leak is 6 L/minute which is acceptable. Absolutely acceptable number. For the last for the last month, Apnea-hypopnea index is 6.2. Last night is 4.7, which is normal range. [place] Sleepiness Scale today is 10. MEDICATIONS: Singulair, morphine, Toprol, B12. PHYSICAL EXAM: Patient in no distress. VITAL SIGNS: BP 123/69, HR 56, RR 16, height 5 feet 9-3/4 inches, weight 267.6, body mass index 38.6, which is the same weight as last year. Body mass index 38.6, temperature 97.2, oxygen saturation room air 95%. Oropharynx: Extremely low position of soft palate. Abdomen slightly obese. Neck Supple, no JVD. Thyroid is not palpable. LUNGS Clear to percussion and to auscultation. Good air exchange. No wheezing or rhonchi. HEART S1, S2 regular. No murmurs, gallops, or rubs. ABDOMEN: Obese. Soft and nontender. Bowel sounds are present. No organomegaly appreciated. EXTREMITIES No clubbing or cyanosis. FOOD AND BEVERAGE SERVICE MANAGER Awake, alert, and oriented X3. Cranial nerves 2 to 7 intact. There is no fasciculation or atrophy. noted. No focal deficits observed. IMPRESSION: 1. 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 The patient demonstrated a compliance with treatment benefitting from treatment. 2. History of chronic obstructive pulmonary disease. 3. Obesity. 4. Hypertension. 5. History of rheumatoid arthritis. 6. History of low testosterone. PLAN: 1. Patient will continue to use his BiPAP equipment every night for the whole night. 2. Losing weight. 3. Sleep hygiene with regular time in bed for at least 8 hours. 4. No driving if feeling sleepiness. 5. Prescription for all necessary BiPAP supplies including mask, tube, filters. Thank you very much for allowing me to participate in the management of your patient. MMODL / IJN: [id number] /
== END | disposition home or self-care (01) ==
LOC: SLEEP 15:58
PROVIDERS: ATTEND Internal Medicine
DX: G47.31 Primary central sleep apnea (principal); G47.39 Other sleep apnea; E66.9 Obesity, unspecified; J44.9 Chronic obstructive pulmonary disease, unspecified; I10 Essential (primary) hypertension; M06.9 Rheumatoid arthritis, unspecified; Z99.89 Dependence on other enabling machines and devices; Z79.891 Long term (current) use of opiate analgesic; Z79.899 Other long term (current) drug therapy; Z86.39 Personal history of other endocrine, nutritional and metabolic disease; Z68.38 Body mass index [BMI] 38.0-38.9, adult

== ENCOUNTER → 2019-01-05 | Outpatient (CLI) | payer OTHER ==
[2019-01-05 18:10] LABS: Basophils # (A) 0.1 k/uL (0-0.2); Basophils % (A) 1 %; Eosinophils # (A) 0.1 k/uL (0-0.7); Eosinophils % (A) 3 %; HCT 42.4 % (39.0-53.0); HGB 15.1 gm/dL (13.0-17.5); Lymphocytes % (A) 48 %; MCH 34.1 pg (25.0-35.0); MCHC 35.6 g/dL (31.0-37.0); MCV 95.6 fL (80.0-100.0); Mean Platelet Volume 5.6; Monocytes # (A) 0.3 k/uL (0-1.0); Monocytes % (A) 8 %; Neutrophils # (A) 1.5 k/uL (1.3-7.7); Neutrophils % (A) 36 %; Platelet Count 188 k/uL (150-450); RBC 4.44 m/uL (4.30-5.90); RDW 11.9 % (11.5-15.5); WBC 4.2 k/uL (3.8-10.6)
[2019-01-05 23:40] LABS: African American GFR (CKD) 108.7 (60.0-200.0); Anion Gap 8.8 mmol/L (4.00-12.00); BUN/Creat Ratio 15.56 Ratio (12.00-20.00); Calcium 9.2 mg/dL (8.7-10.3); Carbon Dioxide 28.2 mmol/L (21.6-31.8); Potassium 4.2 mmol/L (3.5-5.5)
== END | disposition home or self-care (01) ==
LOC: LABWHC1 17:14
PROVIDERS: ATTEND Internal Medicine
DX: R06.00 Dyspnea, unspecified (principal)
CPT/HCPCS: 36415; 80048; 85025; 85379

== ENCOUNTER → 2019-02-26 | Outpatient (CLI) | payer OTHER ==
--- NOTE | 2019-02-26 17:37 | PN ---
PROGRESS NOTE DATE OF SERVICE: 02/26/2019 This 59-year-old gentleman has been followed in Sleep Center for treatment of obstructive sleep apnea-hypopnea syndrome. The patient continues to use BiPAP equipment every night for the whole night without significant problems. He feels comfortable with his mask. No snoring with the machine. He is getting all his supplies on time. [place] Sleepiness Scale today is increased at 16. Patient still feels sometimes episodes of sleepiness during the day. I checked his BiPAP unit. Pressure is 13/9 cm of water. Usage is 30/30 nights for more than 4 hours with average usage 7.7 hours per night. Leak is only 1 L/minute. Apnea- hypopnea index is 1.6, which is absolutely perfect. MEDICATIONS: 1. Losartan. 2. Metoprolol. 3. Singulair. 4. B12. 5. Morphine. 6. [place]. PHYSICAL EXAMINATION: GENERAL: A pleasant patient in no distress. VITAL SIGNS: BP 126/76, HR 65, RR 18, height 5 feet 11 inches, weight 275.2. His weight has increased by about 7 pounds since his previous visit. Body mass index 38.4. Temperature 98.1, oxygen saturation at room air 96%. HEENT: PERRLA, EOMI. Evaluation of oropharynx showed tongue protrudes midline. Extremely low position of soft palate. NECK: Supple. No JVD. Thyroid is not palpable. LUNGS: Clear to percussion and to auscultation. Good air exchange. No wheezing or rhonchi. HEART: S1, S2 regular. No murmurs, gallops or rubs. ABDOMEN: Obese. EXTREMITIES: No clubbing or cyanosis. SUPERVISOR FEED HOUSE: Awake, alert, and oriented X3. Cranial nerves 2 to 7 intact. There is no fasciculation or atrophy. noted. No focal deficits observed. IMPRESSION: 1. 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 The patient has demonstrated 100% compliance with treatment, benefitting from treatment. 2. History of chronic obstructive pulmonary disease. 3. Obesity. 4. Hypertension. 5. Patient is on cardiac evaluation, planning to have cardiac catheterization on 03/09/2019. 6. History of rheumatoid arthritis. 7. History of low testosterone. PLAN: 1. Patient will continue to use BiPAP equipment every night for the whole night with the same regimen of pressure. 2. Prescription for all necessary BiPAP supplies, including mask, tube, filters. 3. Losing weight. 4. Precautions related to driving. No driving if feeling any sleepiness. Thank you very much for allowing me to participate in the management of your patient. Sincerely, Gurmeet Conde MD, PhD, FAASM Diplomat of [place] [employer] [place] [employer] Specialty Person of [facility] [place] MMODL / TYRONEN: [id number] /
== END | disposition home or self-care (01) ==
LOC: SLEEP 16:45
PROVIDERS: ATTEND Internal Medicine
DX: G47.33 Obstructive sleep apnea (adult) (pediatric) (principal); E66.9 Obesity, unspecified; I10 Essential (primary) hypertension; Z68.38 Body mass index [BMI] 38.0-38.9, adult; Z87.09 Personal history of other diseases of the respiratory system; Z87.39 Personal history of other diseases of the musculoskeletal system and connective tissue; Z86.39 Personal history of other endocrine, nutritional and metabolic disease; Z99.89 Dependence on other enabling machines and devices; Z79.891 Long term (current) use of opiate analgesic; Z79.899 Other long term (current) drug therapy

== ENCOUNTER 2019-03-09 09:25 | Day surgery (SDC) | payer OTHER ==
[2019-03-02 11:41] VITALS: BMI 39.6
[~2019-03-09 09:25] MED LIST: ALPRAZolam 0.25 MG TAB PO PRN; ALPRAZolam 0.5 MG TAB PO PRN; ASPIRIN 325 MG TAB PO ONE; ATORVASTATIN 80 MG TAB PO ONE; NITROGLYCERIN SL TABS 0.4 MG TAB SUBLINGUAL PRN; SODIUM CHLORIDE 0.9% 1,000 ML in EMPTY BAG 1 BAG IV ONE
[2019-03-09] MEDS ORDERED: SODIUM CHLORIDE 0.9% 1,000 ML IV ONE (10:12)
[2019-03-09] MEDS ORDERED: VERAPAMIL SYRINGE (5 MG/10 ML) INTRAARTER ONE (12:23)
[2019-03-09] MEDS ORDERED: HEPARIN SODIUM 1,000 UN/ML (10ML VL) IV ONE ×2 (12:23→13:58)
[2019-03-09] MEDS ORDERED: HEPARIN SODIUM 1,000 UN/ML (10ML VL) ONE ×2 (13:10→13:57)
[2019-03-09] MEDS ORDERED: VERAPAMIL 2.5 MG/ML 2 ML AMP ONE (13:10)
[2019-03-09] MEDS ORDERED: LIDOCAINE 1% INJ 10MG/ML (20 ML MDV) ONE (13:10)
[2019-03-09] MEDS ORDERED: LIDOCAINE 1% INJ 10MG/ML (20 ML MDV) SQ ONE (13:22)
[2019-03-09] MEDS: MIDAZOLAM 2 MG/2 ML VIAL IVP ONE ×2 (13:25→13:37)
[2019-03-09] MEDS ORDERED: CLOPIDOGREL 75 MG TAB ONE (13:37)
[2019-03-09] MEDS ORDERED: CLOPIDOGREL 75 MG TAB PO ONE (13:40)
[2019-03-09] MEDS ORDERED: NITROGLYCERIN 1000MCG/10ML SYRINGE INTRACORON ONE (13:45)
[2019-03-09] MEDS ORDERED: BUDESONIDE 1 MG/2 ML NEBU INHALATION PRN (13:46)
[2019-03-09] MEDS ORDERED: ALBUTEROL NEB (CONC) 2.5 MG/0.5 ML INHALATION PRN (13:46)
[2019-03-09] MEDS ORDERED: CYCLOBENZAPRINE 10 MG TAB PO PRN (13:46)
[2019-03-09] MEDS ORDERED: hydrOXYzine PAMOATE 25 MG CAP PO PRN (13:46)
[2019-03-09] MEDS ORDERED: RX INFO: IV CONTRAST WAS GIVEN 1 EACH MISC MISCELLANE PRN (13:48)
[2019-03-09] MEDS ORDERED: ATROPINE SULFATE 0.1 MG/ML 10ML SYRINGE IV PRN (13:48)
[2019-03-09] MEDS ORDERED: MAG HYDROX/AL HYDROX/SIMETH 30 ML CUP PO PRN (13:48)
[2019-03-09] MEDS ORDERED: IOPAMIDOL-370 125ML BTL INJ ONE (13:59)
[2019-03-09] MEDS: SODIUM CHLORIDE 0.9% 1,000 ML IV SCH (14:07)
[2019-03-09] MEDS: HYDROcodone/APAP 10-325MG 1 EACH TAB PO PRN (20:16)
[2019-03-09] MEDS ORDERED: MONTELUKAST 10 MG TAB PO SCH (21:00)
[2019-03-09] MEDS ORDERED: LOPERAMIDE 2 MG CAP PO SCH (21:00)
[2019-03-09] MEDS ORDERED: ATORVASTATIN 80 MG TAB PO SCH (21:00)
[2019-03-09] MEDS: MORPHINE SULFATE ER 30 MG TABLET PO PRN (22:55)
[2019-03-10] MEDS: SODIUM CHLORIDE 0.9% 1,000 ML IV SCH (05:20)
--- NOTE | 2019-03-10 06:27 | CC ---
CARDIAC CATHETERIZATION REPORT CARDIAC CATHETERIZATION AND PERCUTANEOUS CORONARY INTERVENTION: DATE OF SERVICE: March 09, 2019 PERFORMING PHYSICIAN: Boone Goins MD. PROCEDURE PERFORMED: 1. Selective right and left coronary angiogram. 2. Successful stenting of the mid left circumflex coronary artery using 3.25 x 23 mm Xience TIA which was post dilated using 3.5 mm noncompliant balloon with an excellent angiographic result and reduction of stenosis from 90% to 0%. INDICATION: This is a 59-year-old gentleman with history of hypertension and dyslipidemia who was experiencing intermittent episodes of chest discomfort. He underwent myocardial perfusion imaging stress test and that revealed inferior ischemia. Because of that, a heart catheterization was advised. APPROACH: Right radial artery. COMPLICATION: None. LEVEL OF SEDATION: Moderate with sedation length of 39 minutes. PROCEDURE DESCRIPTION: After obtaining an informed consent, the patient was brought to the cardiac laboratory technician. The right radial artery was cannulated using micropuncture technique, the micropuncture wire passed easily then I placed a 6-Austrian sheath in the right radial artery. After that I gave the patient 2 mg of verapamil IA and 10,000 units of heparin IV. Selective right and left coronary angiogram performed using JR4 and JL3.5 catheters. After that, I did perform percutaneous coronary intervention on the left circumflex coronary artery. Please see a separate paragraph for that. SELECTIVE CORONARY ANGIOGRAM: 1. The right coronary artery is a large caliber vessel and it is a dominant vessel. The RCA has mild disease in the midportion. Proximally appeared to be angiographically normal and distally appeared to be angiographically normal. Distally it bifurcates into PDA and PLV branches both appeared to be angiographically normal. 2. The left main is a large caliber vessel. It is angiographically normal. It bifurcates into left circumflex and left anterior descending artery. 3. The left circumflex is a large caliber vessel. It is a nondominant vessel. The proximal left circumflex appeared to be angiographically normal. The left circumflex in the midportion it gives rise into a large OM branch which has a tight lesion appeared to be in the range of 80% to 90%. After that, the left circumflex continues as a small caliber vessel in the AV groove. 4. The Left Anterior Descending Artery: The proximal left anterior descending artery appears to be angiographically normal. It gives rise into a large diagonal branch which has mild disease only. The LAD in the mid and distal portion appeared to be angiographically normal. PCI OF THE LEFT CIRCUMFLEX: Anticoagulation was initiated using heparin only with continuous ACT monitoring throughout the procedure. Subsequently I did engage the left main using JL3.5 guide. I did wire the left circumflex and OM1 using a run-through wire. After that I did predilatation of the lesion using 3.0 x 12 mm balloon before I deployed 3.25 x 23 mm Xience TIA where the stent was positioned under fluoroscopy guidance and deployed under 14 atmospheres for 20 seconds. I post dilated the stent using 3.25 mm NC balloon which was inflated under 16 to 18 atmospheres for about 20 seconds. The following angiogram showed excellent angiographic results and the procedure was completed without any complication. CONCLUSION: 1. Critical disease involving the mid left circumflex coronary artery. 2. Successful stenting of the mid left circumflex using 3.25 x 23 mm Xience TIA which was postdilated using 3.5 mm NC balloon with an excellent angiographic result. POSTPROCEDURE MANAGEMENT: 1. Dual antiplatelet therapy. 2. Risk factors modifications. 3. Follow up with the patient. MMODL / IJN: [id number] /
[2019-03-10] MEDS ORDERED: PANTOPRAZOLE 40 MG TABLET PO SCH (07:30)
[2019-03-10 07:40] LABS: African American GFR (CKD) >90 (>60 ml/min/1.73 sqM); Anion Gap 6 mmol/L; Blood Urea Nitrogen 11 mg/dL (9-20); Calcium 9.1 mg/dL (8.4-10.2); Carbon Dioxide 25 mmol/L (22-30); Chloride 109 mmol/L (98-107); Glucose 87 mg/dL (74-99); Non-African American GFR(CKD) >90 (>60 ml/min/1.73 sqM); Potassium 4.1 mmol/L (3.5-5.1); Sodium 140 mmol/L (137-145)
[2019-03-10 08:00] LABS: Basophils # (A) 0.1 k/uL (0-0.2); Basophils % (A) 1 %; Eosinophils # (A) 0.2 k/uL (0-0.7); Eosinophils % (A) 5 %; HCT 45.2 % (39.0-53.0); HGB 14.9 gm/dL (13.0-17.5); Lymphocytes # (A) 1.7 k/uL (1.0-4.8); Lymphocytes % (A) 39 %; MCH 31.9 pg (25.0-35.0); MCHC 32.8 g/dL (31.0-37.0); MCV 97.2 fL (80.0-100.0); Mean Platelet Volume 7.1; Monocytes # (A) 0.4 k/uL (0-1.0); Monocytes % (A) 9 %; Neutrophils # (A) 1.8 k/uL (1.3-7.7); Neutrophils % (A) 42 %; Platelet Count 166 k/uL (150-450); RBC 4.65 m/uL (4.30-5.90); WBC 4.3 k/uL (3.8-10.6)
[2019-03-10] MEDS: HYDROcodone/APAP 10-325MG 1 EACH TAB PO PRN (08:03)
[2019-03-10 08:26] VITALS: BP 165/89; PULSE 58; RESP 20; TEMP 97.6
[2019-03-10] MEDS ORDERED: CYANOCOBALAMIN 500 MCG TAB PO SCH (09:00)
[2019-03-10] MEDS ORDERED: METOPROLOL SUCCINATE (ER) 25 MG TAB.ER.24H PO SCH (09:00)
[2019-03-10] MEDS ORDERED: ASPIRIN 325 MG TAB PO SCH (09:00)
[2019-03-10] MEDS ORDERED: VALSARTAN 40 MG TAB PO SCH (09:00)
[2019-03-10] MEDS ORDERED: POTASSIUM CHLORIDE ER 10 MEQ TAB.ER.PRT PO SCH (09:00)
[2019-03-10] MEDS: MORPHINE SULFATE ER 30 MG TABLET PO PRN (09:10)
[2019-03-10] MEDS ORDERED: CLOPIDOGREL 75 MG TAB PO SCH (13:50)
--- NOTE | 2019-03-11 00:50 | DS ---
DISCHARGE SUMMARY ADMISSION DATE: March 09, 2019 DISCHARGE DATE: March 10, 2019 BRIEF HISTORY: This is a 59-year-old gentleman who underwent yesterday heart catheterization and revealed severe disease involving the left circumflex coronary artery. He underwent successful stenting of the left circumflex with an excellent angiographic results and without any complication. The patient was seen this morning. The right radial access is soft and nontender and without any hematomas with good pulse. The patient is going to be discharged home on dual anti-platelet therapy and statin and I will follow up with him next week in the office. MMNISREEN / TYRONEN: [id number] /
== END 2019-03-10 09:39 | disposition home or self-care (01) ==
LOC: CATHCVL 09:25 → 3SCARD 14:41 → CATHCVL 03-10 09:39
PROVIDERS: ATTEND Internal Medicine Interventional Cardiology
DX: I25.110 Atherosclerotic heart disease of native coronary artery with unstable angina pectoris (principal); I10 Essential (primary) hypertension; E78.5 Hyperlipidemia, unspecified; E78.00 Pure hypercholesterolemia, unspecified; J44.9 Chronic obstructive pulmonary disease, unspecified; F17.210 Nicotine dependence, cigarettes, uncomplicated; E66.9 Obesity, unspecified; Z79.51 Long term (current) use of inhaled steroids; Z79.891 Long term (current) use of opiate analgesic; Z79.899 Other long term (current) drug therapy; Z88.6 Allergy status to analgesic agent; Z68.38 Body mass index [BMI] 38.0-38.9, adult
CPT/HCPCS: 93454; 85347; 80048; 85025; C9600; C1887; C1725 ×2; C1769 ×3; C1874; C1894; J2250; J2001; J1644; Q9967

== ENCOUNTER → 2019-12-30 | Outpatient (CLI) | payer OTHER ==
--- NOTE | 2019-12-30 16:29 | XR ---
Left knee HISTORY: M 25.562 4 views of the left knee Exam somewhat limited technically Bone mineralization, joint spaces and alignment are maintained. Atherosclerotic vascular calcificatio ns are noted incidentally. No fracture or dislocation. No definite joint effusion. IMPRESSION: No acute abnormality, MRI may be of benefit
== END | disposition home or self-care (01) ==
LOC: RADXRMAIN 10:32
PROVIDERS: ATTEND Family Medicine
DX: M25.562 Pain in left knee (principal)

== ENCOUNTER → 2020-02-17 | Outpatient (CLI) | payer OTHER ==
--- NOTE | 2020-02-17 19:53 | SFUN ---
SLEEP CENTER FOLLOW UP NOTE DATE OF SERVICE: 02/17/2020 This patient is a 59-year-old gentleman who has been followed in Sleep Center for treatment of obstructive sleep apnea-hypopnea syndrome. Recently he received a new BiPAP unit. This is his first visit after starting to use the new machine. The patient is using a BiPAP equipment every night for the whole night. No problem with equipment. No problems with the supplies. [place] Sleepiness Scale, though, is 13. I checked his BiPAP unit. Pressure is 13/9 cm of water. Usage is 100% of the time for more than 4 hours, with average usage 7.6 hours per night. Leak is 16 L/minute, which is borderline. Apnea-hypopnea index is only 1.5, which is perfect. MEDICATIONS: Losartan, metoprolol, Singulair, B12, [place]. PHYSICAL EXAMINATION: GENERAL: A pleasant patient in no distress. VITAL SIGNS: BP 147/76, HR 66, RR 15, weight 266. Patient's weight increased by 10 pounds since previous visit. Temperature 98.1. Oxygen saturation at room air 96%. HEENT: PERRLA, EOMI. Evaluation of oropharynx showed tongue protrudes midline. Extremely low position of soft palate. Mallampati IV. NECK: Supple. No JVD. Thyroid is not palpable. LUNGS: Clear to percussion and to auscultation. Good air exchange. No wheezing or rhonchi. HEART: S1, S2 regular. No murmurs, gallops or rubs. ABDOMEN: Obese. EXTREMITIES: No clubbing or cyanosis. SKILLED LABORER: Awake, alert, and oriented X3. Cranial nerves 2 to 7 intact. There is no fasciculation or atrophy. noted. No focal deficits observed. IMPRESSION: 1. 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 The patient demonstrated 100% compliance with BiPAP treatment, benefitting from treatment. 2. History of chronic obstructive pulmonary disease. 3. Obesity. 4. Hypertension. 5. History of rheumatoid arthritis. 6. History of low testosterone level. PLAN: 1. Patient will continue to use PAP equipment every night for the whole night. 2. Sleep hygiene with regular time in bed for at least 7-1/2 to 8 hours. 3. Precautions related to driving. No driving if feeling sleepiness. 4. I will maintain all necessary prescription for PAP supplies including mask, tube, filters. 5. Watching weight. 6. No driving if feeling sleepiness. 7. Follow-up visit in 6 months or earlier if patient has any problems. Thank you very much for allowing me to participate in the management of your patient. Sincerely, Gurmeet Conde MD, PhD, FAASM Diplomat of [place] [employer] [place] [employer] Facility Maintenance Helper of [facility] [place] MMODL / IJN: [id number] /
== END | disposition home or self-care (01) ==
LOC: SLEEP 11:10
PROVIDERS: ATTEND Internal Medicine
DX: G47.33 Obstructive sleep apnea (adult) (pediatric) (principal); J44.9 Chronic obstructive pulmonary disease, unspecified; E66.9 Obesity, unspecified; I10 Essential (primary) hypertension; Z87.39 Personal history of other diseases of the musculoskeletal system and connective tissue; Z99.89 Dependence on other enabling machines and devices; Z86.39 Personal history of other endocrine, nutritional and metabolic disease; Z79.899 Other long term (current) drug therapy

== ENCOUNTER → 2020-03-07 | Outpatient (CLI) | payer OTHER ==
--- NOTE | 2020-03-07 17:39 | MR ---
EXAMINATION TYPE: MR knee LT wo con DATE OF EXAM: 03/07/2020 COMPARISON: Outside radiograph 01/18/2020 HISTORY: 60-year-old male M25.562, Left knee pain TECHNIQUE: Multiplanar, multisequence imaging of the left knee is performed without IV contrast. FINDINGS: The ACL appears thin but intact. PCL and MCL are intact. There is some linear high signal within the popliteus tendon with additional heterogeneous signal. Re mainder of the LCL complex appears intact. There is a 9 x 7 x 7 mm cyst at the posterior root of the medial meniscus despite nonvisualization of a discrete meniscal tear. Degenerative signal is present within the posterior horn of the medial men iscus. Additionally, there is a 6 mm cyst at the posterior root of the lateral meniscus. An oblique undersur face tear suggested on sagittal image 16. Mild diffuse thinning of the medial and lateral compartment articular cartilage volume without focal chondral defect. Mild diffuse thinning of patellofemoral compartment articular cartilage, again, without focal chondra l defect. Extensor mechanism is intact. Nonspecific anterior soft tissue swelling. Trace fluid within the deep infrapatellar bursa. Increased signal within the suprapatellar fat pad. Small joint fluid likely physiologic. Normal popliteal artery anatomy. Mild fatty infiltration of the musculature. No suspicious bone marrow replacement. Possible small intramedullary bone bruise measuring 1.7 cm in the distal femoral metadiaphysis. IMPRESSION: 1. Thin but intact ACL. 2. Popliteal tendinosis with a small interstitial tear at its origin. 3. Parameniscal cysts at the posterior roots of both medial and lateral menisci (measuring 9 and 6 mm , respectively). This is an indirect sign of a small occult tear near the medial meniscal root not cl early visualized at this time. An oblique tear near the posterior root of the lateral meniscus is vis ualized on sagittal image 16. 4. Mild diffuse thinning of tricompartment articular cartilage volume. 5. Some edema within the suprapatellar fat pad can be seen with fat pad impingement syndrome. Clinica lly correlate. 6. Nonspecific anterior soft tissue swelling.
== END | disposition home or self-care (01) ==
LOC: RADMRIMAIN 13:18
PROVIDERS: ATTEND Orthopaedic Surgery
DX: S83.282A Other tear of lateral meniscus, current injury, left knee, initial encounter (principal); S86.812A Strain of other muscle(s) and tendon(s) at lower leg level, left leg, initial encounter; M23.022 Cystic meniscus, posterior horn of medial meniscus, left knee

== ENCOUNTER 2020-07-08 08:16 | Day surgery (SDC) | payer OTHER ==
[2020-07-05 13:23] VITALS: BMI 37.5
--- NOTE | 2020-07-07 11:46 | HP ---
HISTORY AND PHYSICAL CHIEF COMPLAINT: Left knee pain. 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 He notes medial and lateral pain that increases with twisting and weightbearing. He notes giving way and locking. He has tried medications in addition to an injection with minimal relief. He rates his pain 10/10. PAST MEDICAL HISTORY: Significant for depression, rheumatoid arthritis, peripheral vascular disease, lymphedema, reflux disease, coronary artery disease, COPD, and arthritis. PAST SURGICAL HISTORY: Significant for right femur surgery, right wrist surgery, cholecystectomy, carpal tunnel release, inguinal hernia repair and cardiac stent placement. CURRENT MEDICATIONS: 1. Atorvastatin. 2. Plavix. 3. Hydrocodone. 4. Valsartan. ALLERGIES: He notes allergies to CAPSAICIN and TRAMADOL. FAMILY HISTORY: Significant for stroke and heart disease. SOCIAL HISTORY: Significant for heavy alcohol use. REVIEW OF SYSTEMS: Sixteen-point review of systems otherwise reviewed and is noncontributory. PHYSICAL EXAMINATION: On examination, the patient is approximately 5 feet 11 inches, 260 pounds of endomorphic habitus. HEENT exam is nonfocal. Neck is supple. He has painless passive motion the left hip. Straight leg raise is negative. Active motion left knee -10 to 120 degrees of flexion. He has a mild effusion. He is tender about the medial joint line. Collaterals are stable, Greyson is negative, Jude's elicits medial pain. His distal neurovascular exam appears intact in the left lower extremity. MRI report left knee shows evidence of medial and lateral meniscal tears along with fat pad edema. IMPRESSION: 1. Internal derangement of the left knee with symptomatic medial meniscal tear. 2. History of rheumatoid arthritis/synovitis. 3. History of heart disease. RECOMMENDATIONS: I talked to the patient at length regarding his condition and treatment options. At this point, he is quite symptomatic and limited because of pain and mechanical symptoms despite attempted conservative measures. After thorough discussion, he opts to proceed with surgery. We will plan to proceed with arthroscopic evaluation with possible partial medial meniscectomy in addition to synovectomy. We will likely perform that as an outpatient procedure. Risks and benefits were discussed at length in layman's terms. MMODL / IJN: [id number] /
[~2020-07-08 08:16] MED LIST changes: -ALPRAZolam 0.25 MG TAB PO PRN; -ALPRAZolam 0.5 MG TAB PO PRN; -ASPIRIN 325 MG TAB PO ONE; -ATORVASTATIN 80 MG TAB PO ONE; +DEXAMETHASONE SOD PHOSPHATE 4 MG/ML 1 ML VIAL IV ONE; +HYDROmorphone 0.5 MG/0.5 ML SYRINGE IVP PRN; +LACTATED RINGERS 1,000 ML IV SCH; +MIDAZOLAM 2 MG/2 ML VIAL IV PRN; -NITROGLYCERIN SL TABS 0.4 MG TAB SUBLINGUAL PRN; +ONDANSETRON 4 MG/2 ML VIAL IVP ONE; +SCOPOLAMINE 1.5MG/72HR PATCH TRANSDERM ONE; -SODIUM CHLORIDE 0.9% 1,000 ML in EMPTY BAG 1 BAG IV ONE; +ceFAZolin 3 GM in SODIUM CHLORIDE 0.9% 100 ML IVPB PRN
[2020-07-08] MEDS ORDERED: LIDOCAINE 1% (10MG/ML) FOR IV START INTRADERMA ONE (09:02)
[2020-07-08] MEDS ORDERED: fentaNYL (PF) 50 MCG/ML 2 ML AMP ONE (09:24)
[2020-07-08] MEDS ORDERED: KETAMINE 10 MG/ML 20 ML VIAL ONE (09:24)
[2020-07-08] MEDS ORDERED: SUCCINYLCHOLINE CHLORIDE 100 MG/5 ML SYR IV ONE (09:24)
[2020-07-08] MEDS ORDERED: MIDAZOLAM 2 MG/2 ML VIAL ONE (09:24)
[2020-07-08] MEDS ORDERED: PROPOFOL 10 MG/ML 20 ML VIAL IV ONE (09:24)
[2020-07-08] MEDS ORDERED: LIDOCAINE 1% INJ 10MG/ML (20 ML MDV) ONE (09:24)
[2020-07-08] MEDS ORDERED: EPINEPHrine (PF) 1 ML in SODIUM CHLORIDE 0.9% IRRIGATIO 3,000 ML IRRIGATION ONE ×4 (09:33)
--- NOTE | 2020-07-08 10:15 | P.OP ---
Date of Procedure: 07/08/20 Preoperative Diagnosis: Left knee internal derangement Postoperative Diagnosis: Left knee posterior medial meniscal tear/posterior lateral meniscal tear/synovitis Procedure(s) Performed: Left knee arthroscopic partial medial meniscectomy/partial lateral me niscectomy/synovectomy of the medial, lateral, and patellofemoral compartments Anesthesia: DAVID Surgeon: Milton George Estimated Blood Loss (ml): 10 Pathology: none sent Condition: stable Disposition: PACU Indications for Procedure: The patient's a 60-year-old male who presents with progressive left knee pain and mechanical symptoms despite previous conservative measures. A discussion of the risks and benefits of operative intervention versus continued conservative measures was made with patient. He opted to proceed with surgery. Operative risks to include infection, neurovascular injury, development of blood clots, possible incomplete resolution of symptoms, possible worsening symptoms and need for subsequent procedures was discussed. Informed consent was obtained. Operative Findings: As below Description of Procedure: The patient was brought to the operating room, and after induction of general anesthesia examined the left knee. Collaterals were stable, Greyson was negative, and posterior drawer was negative. The left lower extremity was prepped and draped in a normal fashion. A superior lateral portal was made through a 3 mm skin incision superior and lateral to the patella. This was used for outflow. A lateral portal was made through a 5 mm vertical skin incision lateral to the patella tendon above the joint line. Diagnostic arthroscopy was performed. On inspection of the medial compartment, a radial tear involving the posterior horn of the medial meniscus in the white-white junction was noted. This was debrided back to stable base with straight baskets and a motorized shaver. Marked synovitis involving the anteromedial compartment was debrided with a motorized shaver. The articular cartilage appeared to be intact. On inspection of the notch, the anterior cruciate ligament appeared to be intact. On inspection of the lateral compartment, and oblique tear involving the posterior most aspect the lateral meniscus in the white-white junction was noted. This was debrided back to stable base with a motorized shaver. Marked synovitis involving the anterolateral compartment was debrided with a motorized shaver. No significant chondral defects were noted. On inspection of the patellofemoral articulation, there is chondral fibrillation however no loose chondral fragments. Marked synovitis involving the patellofemoral articulation was debrided with a motorized shaver. The gutters were clear debris. The knee was then thoroughly irrigated. The portals were closed with Steri-Strips. A sterile dressing was applied in addition to a compression stocking. The patient was awoken from general anesthesia and transferred to recovery room in good condition. Blood loss was estimated at 10 mL. No complications were incurred.
[2020-07-08] MEDS ORDERED: KETOROLAC 15 MG/ML 1 ML VIAL IVP ONE (10:22)
[2020-07-08] MEDS: HYDROmorphone 1 MG/ML 1 ML SYRINGE IVP ONE ×4 (10:22→10:44)
[2020-07-08 10:27] VITALS: TEMP 97.3
[2020-07-08 11:27] VITALS: BP 120/77; PULSE 67; RESP 16
== END 2020-07-08 11:40 | disposition home or self-care (01) ==
LOC: OR 08:16
PROVIDERS: ATTEND Orthopaedic Surgery
DX: M23.222 Derangement of posterior horn of medial meniscus due to old tear or injury, left knee (principal); M23.252 Derangement of posterior horn of lateral meniscus due to old tear or injury, left knee; M65.9 Synovitis and tenosynovitis, unspecified; Z90.49 Acquired absence of other specified parts of digestive tract; M06.9 Rheumatoid arthritis, unspecified; E78.2 Mixed hyperlipidemia; I89.0 Lymphedema, not elsewhere classified; I87.2 Venous insufficiency (chronic) (peripheral); I10 Essential (primary) hypertension; G47.33 Obstructive sleep apnea (adult) (pediatric); Z99.89 Dependence on other enabling machines and devices; J45.909 Unspecified asthma, uncomplicated; F32.9 Major depressive disorder, single episode, unspecified; I73.9 Peripheral vascular disease, unspecified; K58.0 Irritable bowel syndrome with diarrhea; I25.10 Atherosclerotic heart disease of native coronary artery without angina pectoris; J44.9 Chronic obstructive pulmonary disease, unspecified; M19.90 Unspecified osteoarthritis, unspecified site; K21.9 Gastro-esophageal reflux disease without esophagitis; Z95.5 Presence of coronary angioplasty implant and graft; Z98.890 Other specified postprocedural states; Z79.82 Long term (current) use of aspirin; Z79.891 Long term (current) use of opiate analgesic; Z79.899 Other long term (current) drug therapy; Z79.02 Long term (current) use of antithrombotics/antiplatelets; Z88.5 Allergy status to narcotic agent; Z88.8 Allergy status to other drugs, medicaments and biological substances
CPT/HCPCS: 29880; J2250; J1100; J0690; J2405; J0171; J2001; J3010; J1170; J1885; J0330; J2704

== ENCOUNTER → 2020-08-03 | Outpatient (CLI) | payer OTHER ==
--- NOTE | 2020-08-03 11:54 | SFUN ---
SLEEP CENTER FOLLOW UP NOTE DATE OF SERVICE: 08/03/2020 This 60-year-old gentleman has been followed in Sleep Center for treatment of complex obstructive sleep apnea-hypopnea syndrome, which include obstructive sleep apnea and central sleep. Patient continued to use his BiPAP equipment mercy night for the whole night. No problem with usage of the machine. She was getting her supplies in time. [place] Sleepiness Scale today, although slightly increased to 11. I checked BiPAP unit. Pressure is 13/9 cm of water. Usage is 7% of the time, 30/30 nights more than 4 hours with average usage of 7.1 hours per night. Leak is 11 L/minute. Apnea-hypopnea index is 1.3, which is absolutely perfect. MEDICATIONS: Pantoprazole 40 mg once a day, valsartan 40 mg once a day, Inflectra 375 infusion every 6 weeks, atorvastatin 80 mg once a day, montelukast 10 mg once a day, loperamide 4 mg once a day, Zicam 1 spray each nostril daily, morphine sulfate extended-release 30 mg twice a day, hydrocodone acetaminophen 10/325 mg up to 3 times a day, methotrexate 2.5 mg once a week, folic acid 1 mg once a week, 500 mg up to 2 times daily for back pain, sildenafil 100 mg. PHYSICAL EXAMINATION: GENERAL: Patient in no distress. VITAL SIGNS: BP 156/90, HR 59, RR 15, height 5 feet 10 inches, weight 273.4, body mass index 39.1, temperature 96.2, oxygen saturation on room air 95%. HEENT: PERRLA, EOMI, evaluation of oropharynx extremely low position of soft palate. Mallampati 4. NECK: Supple, no JVD. Thyroid is not palpable. LUNGS: Clear to percussion and to auscultation. Good air exchange. No wheezing or rhonchi. HEART: S1, S2 regular. No murmurs, gallops, or rubs. ABDOMEN: Obese. EXTREMITIES: No clubbing or cyanosis. GUEST RELATIONS ASSOCIATE: Awake, alert, and oriented X3. Cranial nerves 2 to 7 intact. There is no fasciculation or atrophy. noted. No focal deficits observed. IMPRESSION: 1. 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 Patient demonstrates 100% compliance with BiPAP therapy, benefiting from treatment. 2. History of chronic obstructive pulmonary disease. 3. Obesity. 4. Hypertension. 5. History of rheumatoid arthritis. 6. History of low testosterone level. 7. Chronic back pain. 8. Hyperlipidemia. 9. Chronic sinusitis. 10. . 11.Irritable bowel syndrome. 12.History of osteoarthritis. 13.History of erectile dysfunction. 14.Coronary artery disease, status post stent insertion . 15.Status post cholecystectomy. 16.Status post hemorrhoidectomy. 17.Status post left knee arthroscopy for repair of torn meniscus in June of 2020. PLAN: 1. Patient will continue to use PAP equipment every night for the whole night. 2. Sleep hygiene with regular time in bed for at least 7-1/2 to 8 hours. 3. Precautions related to driving. No driving if feeling sleepiness. 4. I will maintain all necessary prescription for PAP supplies including mask, tube, filters. 5. Watching weight. 6. Follow-up visit in 6 months or earlier if patient has any problems. Thank you very much for allowing me to participate in management of your patient. Sincerely, Gurmeet Conde MD, PhD, FAASM Diplomat of [employer]ricator Tender [facility] [place] MMODL / IJN: [id number] /
== END ==
LOC: SLEEP 09:53
PROVIDERS: ATTEND Internal Medicine
DX: G47.33 Obstructive sleep apnea (adult) (pediatric) (principal); G47.31 Primary central sleep apnea; J44.9 Chronic obstructive pulmonary disease, unspecified; E66.9 Obesity, unspecified; I10 Essential (primary) hypertension; M06.9 Rheumatoid arthritis, unspecified; G89.29 Other chronic pain; M54.5 Low back pain; E78.5 Hyperlipidemia, unspecified; J32.9 Chronic sinusitis, unspecified; K58.9 Irritable bowel syndrome, unspecified; M19.90 Unspecified osteoarthritis, unspecified site; I25.10 Atherosclerotic heart disease of native coronary artery without angina pectoris; Z95.5 Presence of coronary angioplasty implant and graft; Z90.49 Acquired absence of other specified parts of digestive tract; Z98.890 Other specified postprocedural states; Z87.438 Personal history of other diseases of male genital organs; Z68.39 Body mass index [BMI] 39.0-39.9, adult; Z79.899 Other long term (current) drug therapy; Z88.6 Allergy status to analgesic agent; Z88.8 Allergy status to other drugs, medicaments and biological substances

== ENCOUNTER 2020-12-09 14:36 | Emergency (ER) | payer OTHER ==
[2020-12-09 14:40] VITALS: BP 182/92; PULSE 88; RESP 18; TEMP 98.5
[2020-12-09] MEDS ORDERED: LIDOCAINE 1% INJ 10MG/ML (20 ML MDV) SQ ONE (14:44)
[2020-12-09] MEDS ORDERED: DIPH,PERTUS(ACELL)TETVAC-LF 0.5 ML VIAL IM ONE (14:44)
--- NOTE | 2020-12-09 15:28 | ED ---
Wound/Laceration HPI - General Chief Complaint: Wound/Laceration Stated Complaint: L Finger Lac Time Seen by Provider: 12/09/20 14:41 Source: patient, RN notes reviewed Mode of arrival: ambulatory Limitations: no limitations - History of Present Illness Initial Comments: Patient is a 60-year-old male that presents to emergency room with a left ring finger laceration from a facet piece. He notes he was trying to repair his signing when he cut himself on accident. He notes that he does need a tetanus vaccine as it has been a while. Otherwise he has no issues or complaints. He has full range of motion of his left ring finger. He denied any chest pain shortness of breath headache nausea vomiting diarrhea constipation fever fatigue chills. - Related Data Home Medications Medication Instructions Recorded Confirmed Montelukast [Singulair] 10 mg PO HS 02/01/14 07/08/20 Loperamide HCl [Imodium A-D] 2 mg PO HS 09/07/15 07/08/20 Cyanocobalamin [Vitamin B-12] 1,000 mcg PO DAILY 02/24/17 07/08/20 Morphine Sulfate ER [Ms Contin] 30 mg PO Q12HR 11/07/17 07/08/20 Sildenafil Citrate [Viagra] 100 mg PO DAILY PRN 11/07/17 07/08/20 HYDROcodone/APAP 10-325MG [Berne 1 tab PO TID PRN 03/02/19 07/08/20 10-325] Potassium 595 mg PO DAILY 03/02/19 07/08/20 Valsartan [Diovan] 40 mg PO HS 03/02/19 07/08/20 Aspirin 81 mg PO DAILY 07/05/20 07/08/20 Calcium/Magnesium/Zinc 1 each PO BID 07/05/20 07/08/20 [Wpyppyl-Qwdaiurvf-Podh Tablet] Chlorzoxazone [Parafon Forte DSC] 500 mg PO BID PRN 07/05/20 07/08/20 Pantoprazole Sodium [Protonix] 40 mg PO BID 07/05/20 07/08/20 Tofacitinib Citrate [Xeljanz Xr] 11 mg PO DAILY 07/05/20 07/08/20 Zicam 1 - 2 sprays NASAL DIRECTED PRN 07/05/20 07/08/20 Previous Rx's Medication Instructions Recorded Atorvastatin [Lipitor] 80 mg PO HS #90 tab 03/10/19 Cephalexin [Keflex] 500 mg PO Q6HR #40 cap 12/09/20 Allergies Allergy/AdvReac Type Severity Reaction Status Date / Time capsaicin Allergy Rash/Hives Verified 12/09/20 14:40 tramadol Allergy Vomiting Verified 12/09/20 14:40 Review of Systems ROS Statement: Those systems with pertinent positive or pertinent negative responses have been documented in the HPI. ROS Other: All systems not noted in ROS Statement are negative. Past Medical History Past Medical History: COPD, GERD/Reflux, Hypertension, Rheumatoid Arthritis (RA) Additional Past Medical History / Comment(s): Chronic lymphedema, R leg edema, past R lower leg cellulitis, venous insufficiency R leg, chronic generalized pain from RA, immunosuppressed, IBS with chronic diarrhea, chronic allergies, cholecystitis/lithiasis with sepsis-had cholecystectomy. History of Any Multi-Drug Resistant Organisms: MRSA Date of last positivie culture/infection: 11/19/18 MDRO Source:: Left Flank Past Surgical History: Cholecystectomy, Orthopedic Surgery Additional Past Surgical History / Comment(s): carpal tunnel Past Anesthesia/Blood Transfusion Reactions: No Reported Reaction Past Psychological History: Depression Smoking Status: Former smoker Past Alcohol Use History: Daily Past Drug Use History: None Reported - Past Family History Mother Family Medical History: COPD Additional Family Medical History / Comment(s): Mother was a smoker. Father Family Medical History: COPD Additional Family Medical History / Comment(s): Father was a smoker. Son(s) Family Medical History: Cancer Additional Family Medical History / Comment(s): Brain CA General Exam Limitations: no limitations General appearance: alert, in no apparent distress Head exam: Present: atraumatic, normocephalic, normal inspection Eye exam: Present: normal appearance, PERRL, EOMI. Absent: scleral icterus, conjunctival injection, periorbital swelling ENT exam: Present: normal exam, mucous membranes moist Neck exam: Present: normal inspection Respiratory exam: Present: normal lung sounds bilaterally. Absent: respiratory distress, wheezes, rales, rhonchi, stridor Cardiovascular Exam: Present: regular rate, normal rhythm, normal heart sounds. Absent: systolic murmur, diastolic murmur, rubs, gallop, clicks Extremities exam: Present: normal inspection, full ROM, normal capillary refill. Absent: tenderness, pedal edema, joint swelling, calf tenderness Neurological exam: Present: alert, oriented X3 Skin exam: Present: warm, dry, intact, normal color. Absent: rash Expanded Type of lesion: Present: laceration (Medial proximal aspect of left ring finger pad measuring approximately 2 cm, nonbleeding.) Course Vital Signs 12/09/20 14:37 Temperature 98.5 F Pulse Rate 88 Respiratory 18 Rate Blood Pressure 182/92 O2 Sat by Pulse 98 Oximetry Procedures - Laceration Laceration #1 Consent Obtained: verbal consent Indication: laceration Site: hand (Left ring finger anterior medial proximal pad) Size (cm): 2 Description: linear Depth: simple, single layer Anesthetic Used: lidocaine 1% Anesthesia Technique: nerve block Amount (mls): 6 Pre-repair: irrigated extensively Type of Sutures: nylon Size of Sutures: 4-0 Number of Sutures: 3 Technique: simple, interrupted Patient Tolerated Procedure: well, no complications Medical Decision Making - Medical Decision Making 60-year-old male with left ring finger laceration. Tetanus vaccine, lidocaine ordered. Patient tolerated suturing well. Antibiotics sent to pharmacy. Case discussed with Dr. Millan, patient discharge home with follow-up primary care. Disposition Clinical Impression: Laceration Disposition: HOME SELF-CARE Condition: Stable Instructions (If sedation given, give patient instructions): Laceration (ED), Care For Your Stitches (ED) Additional Instructions: Please return to the Emergency Department if symptoms worsen or any other concerns. Follow-up primary care in 1-2 days. Please return in 7 days to have sutures removed. Keep area clean and dry. Cough while bathing. Take antibiotics as prescribed until complete. Is patient prescribed a controlled substance at d/c from ED?: No Referrals: Shawanda Pruett MD [Primary Care Provider] - 1-2 days Time of Disposition: 15:28
== END 2020-12-09 15:45 | disposition home or self-care (01) ==
LOC: EC 14:36
DX: S61.215A Laceration without foreign body of left ring finger without damage to nail, initial encounter (principal); J44.9 Chronic obstructive pulmonary disease, unspecified; K21.9 Gastro-esophageal reflux disease without esophagitis; I10 Essential (primary) hypertension; F32.9 Major depressive disorder, single episode, unspecified; Z88.1 Allergy status to other antibiotic agents; Z90.49 Acquired absence of other specified parts of digestive tract; Z87.891 Personal history of nicotine dependence; W26.8XXA Contact with other sharp object(s), not elsewhere classified, initial encounter
CPT/HCPCS: 99282; 90471; 12001; 90715; J2001

== ENCOUNTER → 2021-01-27 | Outpatient (CLI) | payer OTHER ==
--- NOTE | 2021-01-27 15:02 | CT ---
EXAMINATION TYPE: CT chest wo con DATE OF EXAM: 01/27/2021 COMPARISON: CTA chest May 14, 2012. Chest x-ray January 05, 2019 HISTORY: rheumatoid lung CT DLP: 1325 mGycm. Automated Exposure Control for Dose Reduction was Utilized. TECHNIQUE: CT scan of the thorax is performed without IV contrast. High resolution protocol with 1 m m sequences obtained in 10 mm intervals in supine and prone technique. FINDINGS: LUNGS: Upper lungs show scattered bulla and blebs greatest anteriorly with some progression from 2013 CT. There is peripheral reticulation and fibrotic change bilaterally with additional linear scarring in the anterior left upper lung. Findings extend into the right middle lobe and to lesser degree the lingula. This relative sparing of the bilateral lower lobes. No pleural effusion. Protocol is subopt imal to evaluate for nodules but there are scattered small nodules noted right middle lobe periphery axial image 19 series and right lower lobe subpleural region axial image 22. The 7 mm nodule right mi ddle lobe is likely stable from 2013 CT axial image 68. MEDIASTINUM: Lack of IV contrast and technique are noted to limit evaluation for mediastinal and ewelina cially hilar adenopathy. There are no definitive new greater than 1 cm mediastinal lymph nodes. No cardiomegaly or pericardial effusion is seen. [id number] coronary artery calcification and/or stents. OTHER: Cholecystectomy clips redemonstrated. IMPRESSION: Mild to moderate emphysematous and pulmonary fibrotic changes greatest in the upper lungs with relative sparing of the bilateral lower lobe shows interval progression from 2013 CT likely pro duct of known rheumatoid arthritis and possibly underlying COPD.
== END | disposition home or self-care (01) ==
LOC: RADCTMAIN 14:10
PROVIDERS: ATTEND Internal Medicine
DX: J84.10 Pulmonary fibrosis, unspecified (principal); R91.8 Other nonspecific abnormal finding of lung field
CPT/HCPCS: 71250

== ENCOUNTER → 2021-07-12 | Outpatient (CLI) | payer OTHER ==
--- NOTE | 2021-07-12 22:16 | SFUN ---
SLEEP CENTER FOLLOW UP NOTE DATE OF SERVICE: 07/12/2021 This 61-year-old gentleman has been followed in Sleep Center for treatment of obstructive sleep apnea-hypopnea syndrome. The patient continues to use his BiPAP equipment every night. No problems with the machine, getting his supplies on time. [place] Sleepiness Scale today though increased to 12, which is above normal range and may indicate some sleepiness. I checked his BiPAP unit. Pressure is 13/9 cm of water. Usage is 30/30 nights, average 6.8 hours per night. Leak is 8 L/minute, which is within normal range. Apnea-hypopnea index is 1.0, which is normal. MEDICATIONS: Pantoprazole, valsartan, infusion, atorvastatin, montelukast, loperamide, Zicam spray, morphine extended-release twice a day, hydrocodone/acetaminophen, methotrexate, folic acid, sildenafil. PHYSICAL EXAMINATION: GENERAL: Pleasant patient in no distress. VITAL SIGNS: BP 153/76, HR 72, RR 16, height 5 feet 9-3/4 inches, weight 265.8, BMI 38.4, temperature 97.7, oxygen saturation at room air 95%. HEENT: PERRLA, EOMI, evaluation of oropharynx showed tongue protrudes midline. Low position of soft palate; Mallampati IV. NECK: Supple, no JVD. Thyroid is not palpable. LUNGS: Clear to percussion and to auscultation. Good air exchange. No wheezing or rhonchi. HEART: S1, S2 regular. No murmurs, gallops, or rubs. ABDOMEN: Obese. EXTREMITIES: No clubbing or cyanosis. PROPOSAL REVIEW ANALYST: Awake, alert, and oriented X3. Cranial nerves 2 to 7 intact. There is no fasciculation or atrophy. noted. No focal deficits observed. IMPRESSION: 1. Complex obstructive sleep apnea and central sleep apnea-hypopnea syndrome. Patient demonstrated 100% compliance with BiPAP treatment, benefitting from treatment. Normal respiration on CPAP. 2. History of chronic obstructive pulmonary disease. 3. Obesity. 4. Hypertension. 5. History of rheumatoid arthritis. 6. History of low testosterone level. 7. Chronic back pain. 8. Chronic sinusitis. 9. Hyperlipidemia. 10.Irritable bowel syndrome. 11.History of osteoarthritis. 12.History of erectile dysfunction. 13.Coronary artery disease, status post stent insertion in February of 2019. 14.Status post cholecystectomy. 15.Status post hemorrhoidectomy. 16.Status post left knee arthroscopy surgery for torn meniscus in June 2020. PLAN: 1. Patient will continue to use PAP equipment every night for the whole night. 2. Sleep hygiene with regular time in bed for at least 7-1/2 to 8 hours. 3. Precautions related to driving. No driving if feeling sleepiness. 4. I will maintain all necessary prescription for PAP supplies including mask, tube, filters. 5. Watching weight. 6. Follow-up visit in 6 months or earlier if patient has any problems. Thank you very much for allowing me to participate in the management of your patient. Sincerely, Gurmeet Conde MD, PhD, FAASM Diplomat of [employer] Sleep Medicine Board of [place] Developer of [facility] [place] MMODL / TYRONEN: [id number] /
== END ==
LOC: SLEEP 15:20
PROVIDERS: ATTEND Internal Medicine
DX: G47.33 Obstructive sleep apnea (adult) (pediatric) (principal); G47.31 Primary central sleep apnea; Z99.89 Dependence on other enabling machines and devices; J44.9 Chronic obstructive pulmonary disease, unspecified; E66.9 Obesity, unspecified; I10 Essential (primary) hypertension; M06.9 Rheumatoid arthritis, unspecified; Z86.39 Personal history of other endocrine, nutritional and metabolic disease; M54.50 Low back pain, unspecified; G89.29 Other chronic pain; J32.9 Chronic sinusitis, unspecified; E78.5 Hyperlipidemia, unspecified; K58.9 Irritable bowel syndrome, unspecified; Z87.39 Personal history of other diseases of the musculoskeletal system and connective tissue; Z87.438 Personal history of other diseases of male genital organs; I25.10 Atherosclerotic heart disease of native coronary artery without angina pectoris; Z90.49 Acquired absence of other specified parts of digestive tract; Z98.890 Other specified postprocedural states; Z95.5 Presence of coronary angioplasty implant and graft; Z88.5 Allergy status to narcotic agent; Z88.8 Allergy status to other drugs, medicaments and biological substances; Z87.891 Personal history of nicotine dependence

== ENCOUNTER → 2021-09-25 | Outpatient (CLI) | payer OTHER ==
--- NOTE | 2021-09-25 08:37 | CT ---
EXAMINATION TYPE: CT sinus wo con CT DLP: 592 mGycm, Automated exposure control for dose reduction was used. DATE OF EXAM: 09/25/2021 8:24 AM COMPARISON: CT Sinus 11/27/2010. CLINICAL INDICATION:Male, 61 years old with history of J32.9 Chronic sinusitis. CONTRAST: None. TECHNIQUE: Multiple thin axial images were obtained through the paranasal sinuses without the use of IV contrast. Additional coronal and sagittal reformatted images were submitted for evaluation. FINDINGS: Frontal sinuses: Aplastic left and hypoplastic right frontal sinus. Frontal Recess: Clear Modified [place] Score: Right 0 = 0% Opacified, Left 0 = 0% Opacified Maxillary Sinuses: Normally developed and aerated. Modified Maycol-Lawrence Score: Right 0 = 0% Opacified, Left 0 = 0% Opacified Maxillary Infundibula([facility]): Clear, No Sindhu cells identified. Modified Maycol-[place] Score: Right 0 = Completely patent, Left 0 = Completely patent Ethmoid sinuses: Normally developed and aerated. Ethmoidal notch: Protected and abutting the lateral lamina. Modified Granite-Lawrence Score: Anterior Right 0 = 0% Opacified, Left 0 = 0% Opacified Posterior Right 0 = 0% Opacified, Left 0 = 0% Opacified Sphenoid sinuses: Normally developed and aerated. There is sellar sphenoid sinus pneumatization witho ut evidence of dehiscence. No dehiscence of carotid canal. No evidence of optic nerve dehiscence wit hin the sphenoid sinus. No evidence of [place] cells. Sphenoethmoidal recesses: Clear. Modified Granite-Lawrence Score: Right 0 = 0% Opacified, Left 0 = 0% Opacified. Nasal septum: Within normal limits.. Nasal Turbinates: Within normal limits. Mastoid air cells & middle ears: The air cells are clear. The middle ears are grossly unremarkable. Modified Soft tissues & Brain: Partially seen without gross abnormality. Globes are intact. Other: Cribriform plate demonstrates symmetric Keros classification type 1 cribriform plate. No evidence of bony dehiscence of skull base. Lamina papyracea is intact without evidence of remote orbital fracture or orbital prolapse into the e thmoid sinus. IMPRESSION: 1. No significant mucosal sinus disease. 2. The ostiomeatal units, frontonasal and sphenoethmoidal recesses are clear. 3. Opacification burden of 0/54 on the Modified Maycol-Lawrence scoring system.
== END | disposition home or self-care (01) ==
LOC: RADCTMAIN 07:53
PROVIDERS: ATTEND Internal Medicine
DX: J34.89 Other specified disorders of nose and nasal sinuses (principal)
CPT/HCPCS: 70486

== ENCOUNTER → 2022-03-26 | Outpatient (CLI) | payer OTHER ==
[2022-03-26 18:02] LABS: HCT 46.5 % (39.6-50.0); HGB 15.1 g/dL (13.0-17.0); MCH 32.7 pg (27.0-32.0); MCHC 32.5 g/dL (32.0-37.0); MCV 100.6 fL (80.0-97.0); Mean Platelet Volume 9.9 fL (9.5-12.2); NRBC Per 100 WBC 0 /100 WBCS (0.0-0.0); Platelet Count 175 X 10*3/uL (140-440); RBC 4.62 X 10*6/uL (4.40-5.60); RDW 13.1 % (11.5-14.5); WBC 8.05 X 10*3/uL (4.50-10.00)
[2022-03-26 18:04] LABS: African American GFR (CKD) 93.1 (60.0-200.0); Anion Gap 6.8 mmol/L (10.00-18.00); Blood Urea Nitrogen 14.2 mg/dL (9.0-27.0); Carbon Dioxide 27.2 mmol/L (20.0-27.5); Non-African American GFR(CKD) 80.3 (60.0-200.0); Potassium 5.3 mmol/L (3.5-5.5)
== END ==
LOC: LABPAT 10:36
PROVIDERS: ATTEND Internal Medicine Interventional Cardiology
DX: I25.10 Atherosclerotic heart disease of native coronary artery without angina pectoris (principal)
CPT/HCPCS: 80051; 82565; 84520; 85027

== ENCOUNTER 2022-04-09 07:17 | Day surgery (SDC) | payer OTHER ==
[2022-03-28 09:00] VITALS: BMI 38.3
[~2022-04-09 07:17] MED LIST changes: +ALPRAZolam 0.25 MG TAB PO PRN; +ALPRAZolam 0.5 MG TAB PO PRN; +ASPIRIN 325 MG TAB PO STA; -DEXAMETHASONE SOD PHOSPHATE 4 MG/ML 1 ML VIAL IV ONE; -HYDROmorphone 0.5 MG/0.5 ML SYRINGE IVP PRN; -LACTATED RINGERS 1,000 ML IV SCH; -MIDAZOLAM 2 MG/2 ML VIAL IV PRN; +NITROGLYCERIN SL TABS 0.4 MG TAB SUBLINGUAL PRN; -ONDANSETRON 4 MG/2 ML VIAL IVP ONE; -SCOPOLAMINE 1.5MG/72HR PATCH TRANSDERM ONE; -ceFAZolin 3 GM in SODIUM CHLORIDE 0.9% 100 ML IVPB PRN
[2022-04-09] MEDS: SODIUM CHLORIDE 0.9% 1,000 ML in EMPTY BAG 1 BAG IV SCH ×3 (07:47→21:52)
[2022-04-09] MEDS ORDERED: HEPARIN SODIUM 1,000 UN/ML (10ML VL) ONE (08:05)
[2022-04-09] MEDS ORDERED: MIDAZOLAM 2 MG/2 ML VIAL IV ONE ×3 (08:23→08:54)
[2022-04-09] MEDS ORDERED: LIDOCAINE 1% INJ 10MG/ML (5 ML VIAL-PF) SQ ONE (08:27)
[2022-04-09] MEDS ORDERED: VERAPAMIL SYRINGE (5 MG/10 ML) INTRAARTER ONE (08:29)
[2022-04-09] MEDS: HEPARIN SODIUM 1,000 UN/ML (10ML VL) IV ONE ×2 (08:31→08:54)
[2022-04-09] MEDS ORDERED: LIDOCAINE 1% INJ 10MG/ML (30 ML VIAL-PF) SQ ONE (08:49)
[2022-04-09] MEDS ORDERED: NITROGLYCERIN 1000MCG/10ML SYRINGE INTRACORON ONE (09:06)
[2022-04-09] MEDS ORDERED: IOPAMIDOL-370 100ML BTL INJ ONE (09:09)
[2022-04-09] MEDS ORDERED: TICAGRELOR 90 MG TAB ONE (09:29)
[2022-04-09] MEDS ORDERED: TICAGRELOR 90 MG TAB PO ONE (09:35)
[2022-04-09] MEDS ORDERED: IOPAMIDOL-300 100ML BTL INJ ONE (09:41)
[2022-04-09] MEDS ORDERED: NON FORMULARY DRUG (Sildenafil Citrate [Viagra] 100 MG Tablet) PO PRN (09:51)
[2022-04-09] MEDS ORDERED: MELOXICAM 7.5 MG TAB PO PRN (09:51)
[2022-04-09] MEDS ORDERED: RX INFO: IV CONTRAST WAS GIVEN 1 EACH MISC MISCELLANE PRN (09:52)
[2022-04-09] MEDS ORDERED: ZOLPIDEM 5 MG TAB PO PRN (09:52)
[2022-04-09] MEDS ORDERED: MAG HYDROX/AL HYDROX/SIMETH 30 ML CUP PO PRN (09:52)
[2022-04-09] MEDS ORDERED: ATROPINE SULFATE 0.1 MG/ML 10ML SYRINGE IV PRN (09:52)
[2022-04-09] MEDS ORDERED: NITROGLYCERIN SL TABS 0.4 MG TAB SUBLINGUAL PRN (09:52)
[2022-04-09] MEDS ORDERED: SODIUM CHLORIDE 0.9% 1,000 ML in EMPTY BAG 1 BAG IV SCH (10:00)
[2022-04-09] MEDS ORDERED: INFLIXIMAB-DYYB 100 MG VIAL IV SCH (10:00)
--- NOTE | 2022-04-09 10:11 | P.PCN ---
Date of Procedure: 04/09/22 Operative Findings: CARDIAC CATHETERIZATION AND PERCUTANEOUS CORONARY INTERVENTION PERFORMING PHYSICIAN: Boone Goins MD, [facility] PROCEDURE PERFORMED: 1. Selective right and left coronary angiogram 2. Left heart catheterization 3. Successful stenting of the first diagonal branch using 3.0 x 15 mm Xience TIA with an excellent angiographic results with adjunctive use off intravascular ultrasound 4. Selective right common femoral artery angiogram INDICATION: This is a 62-year-old gentleman with a CAD and prior stenting of the LCx was seen in the office recently for intermittent episodes of chest discomfort. He underwent myocardial perfusion imaging stress test and that showed an anterior ischemia. In the light of that heart catheterization was advised COMPLICATION: None APPROACH: Right radial artery and the right common femoral artery LEVEL OF SEDATION: Moderate with the sedation time off 18 minutes PROCEDURE DESCRIPTION: After obtaining an informed consent the patient was brought to the cardiac laboratory miller. The right radial artery was cannulated using micropuncture technique, the micropuncture wire passed easily then I placed a 6-Georgian sheath. I gave the patient 2 mg of verapamil intra-arterial and 6000 units of heparin intravenous. Selective right and left coronary angiogram performed using JR4 and JL 3.5 catheters. Left heart catheterization was performed using 6-Georgian pigtail catheter. After that I did intervene on the LAD and diagonal. SELECTIVE CORONARY ANGIOGRAM: The right coronary artery: Large caliber vessel and a dominant vessel. The RCA has mild to moderate d iffuse disease with no high-grade stenosis identified. The mid RCA has a lesion appeared to be in the range of 30-40%. Left main: It is angiographically normal. Bifurcates into an LCx and LAD The left circumflex: Large caliber vessel nondominant vessel. The LCx gives rises into a large OM branch which is a stented with mild in-stent restenosis. The left anterior descending artery: The proximal LAD appeared to be angiographically normal. The mid LAD by the bifurcation of the large diagonal branch has a lesion involving the ostial of this first and large diagonal branch. As a matter of fact the LAD looks like almost dual LAD system. The disease was more identified on the MARTE cranial view. The ostial diagonal appears to have a lesion in the range of 80-90%. HEMODYNAMICS: The LVEDP was 6 mmHg was no significant gradient across aortic valve PCI OF THE diagonal and LAD: By coagulation was achieved using heparin with continuous ACT monitoring. Since we decided to go with 8-Georgian system I decided to go from the groin. The right common femoral artery was cannulated using micropuncture technique, the eva ropuncture wire passed easily then I placed an 8-Georgian sheath. We did selective right common femoral artery angiogram through the micropuncture sheath before we commented into an 8-Georgian system. Subsequently I did engage the left main using 7-Georgian JL4 guiding catheter. I did wire the LAD as well as the diet. The LAD was wired using a whisper wire and diagonal was wired using a run-through wire. Initially I did kissing balloons of the LAD and diagonal using 2.0 mm for the LAD and 2.5 mm for the diagonal. Subsequently I did kissing stent balloon of the LAD and diagonal using 2 mm balloon for the LAD and 3.0 x 15 mm stent for the diagonal. I did postdilated dictation using 3.25 mm balloon for the diagonal which was noncompliant balloon and 2.25 mm balloon for the LAD which was see my compliant balloon since advancing noncompliant balloon was unsuccessful. Please note that we did perform intravascular ultrasound at the beginning and that showed a diameter of the LAD appeared to be in the range of 3-3.5 mm. Final angiogram was performed after doing postdilatation showed excellent angiographic results and the procedure was completed was no complication CONCLUSION: Rate and stent in the left circumflex coronary system Critical disease involving a large first diagonal branch. I did perform successful stenting of the diagonal branch with an excellent angiographic result POSTPROCEDURE MANAGEMENT: #1 dual antiplatelet therapy using aspirin and Brilinta for 12 month #2 aggressive cholesterol control #3 follow-up with the patient
[2022-04-09] MEDS: CYCLOBENZAPRINE 5 MG TAB PO SCH ×2 (16:52→21:51)
[2022-04-09] MEDS: PANTOPRAZOLE 40 MG TABLET PO SCH (17:45)
[2022-04-09] MEDS ORDERED: MONTELUKAST 10 MG TAB PO SCH (21:00)
[2022-04-09] MEDS ORDERED: NON FORMULARY DRUG (Calcium/Magnesium/Zinc [Calcium-Magnesium-Zinc Tablet] 1 EACH Tablet) PO SCH (21:00)
[2022-04-09] MEDS ORDERED: LOPERAMIDE 2 MG CAP PO SCH (21:00)
[2022-04-09] MEDS ORDERED: VALSARTAN 40 MG TAB PO SCH (21:00)
[2022-04-09] MEDS ORDERED: ATORVASTATIN 80 MG TAB PO SCH (21:00)
[2022-04-10 04:04] VITALS: RESP 18
[2022-04-10] MEDS: SODIUM CHLORIDE 0.9% 1,000 ML in EMPTY BAG 1 BAG IV SCH (05:25)
[2022-04-10] MEDS: PANTOPRAZOLE 40 MG TABLET PO SCH (06:29)
[2022-04-10 06:49] VITALS: PULSE 65; TEMP 97.7
[2022-04-10] MEDS: CYCLOBENZAPRINE 5 MG TAB PO SCH (08:03)
--- NOTE | 2022-04-10 08:39 | P.DS ---
Providers Attending physician: Boone Goins Consults: 04/09/22 09:52 Consult Physician Routine Consulting Provider: [facility] Consult Reason/Comments: Post Interventional Patient Do you want consulting provider notified?: Already Contacted Primary care physician: Shaw[facility] Course: The patient is a pleasant 62-year-old patient with a past medical history significant for hypertension and dyslipidemia and CAD underwent yesterday successful stenting of the diagonal branch of the LAD. He was seen this morning. The right radial and right common femoral artery sites appeared to be soft and nontender was no bruises. The patient is going to be discharged home on dual antiplatelet therapy and high intensity statin and I'll follow-up with the patient next week in the office Plan - Discharge Summary Discharge Rx Participant: No New Discharge Prescriptions: No Action Montelukast [Singulair] 10 mg PO HS Loperamide HCl [Imodium A-D] 2 mg PO HS Sildenafil Citrate [Viagra] 100 mg PO DAILY PRN PRN Reason: ED Valsartan [Diovan] 40 mg PO HS Potassium 595 mg PO DAILY Atorvastatin [Lipitor] 80 mg PO HS #90 tab Aspirin 81 mg PO DAILY Chlorzoxazone [Parafon Forte DSC] 500 mg PO TID Cholecalciferol [Vitamin D3 (25 Mcg = 1000 Iu)] 25 mcg PO DAILY Folic Acid 1 mg PO DAILY Levocetirizine Dihydrochloride [Xyzal] 5 mg PO DAILY Zicam 1 - 2 sprays NASAL DIRECTED PRN PRN Reason: congestion, allergies Calcium/Magnesium/Zinc [Vkzocrf-Zfgqqodae-Ullg Tablet] 1 each PO BID Pantoprazole Sodium [Protonix] 40 mg PO BID Infliximab-Dyyb [Inflectra] 575 mg IV DIRECTED Metoprolol Succinate (ER) [Toprol Xl] 25 mg PO DAILY Meloxicam [Mobic] 15 mg PO DAILY PRN PRN Reason: Pain Methotrexate [Xatmep Oral Soln] 5 mg PO SA hydroCHLOROthiazide 12.5 mg PO DAILY Discharge Medication List Montelukast [Singulair] 10 mg PO HS 02/01/14 [History] Loperamide HCl [Imodium A-D] 2 mg PO HS 09/07/15 [History] Sildenafil Citrate [Viagra] 100 mg PO DAILY PRN 11/07/17 [History] Potassium 595 mg PO DAILY 03/02/19 [History] Valsartan [Diovan] 40 mg PO HS 03/02/19 [History] Atorvastatin [Lipitor] 80 mg PO HS #90 tab 03/10/19 [Rx] Aspirin 81 mg PO DAILY 07/05/20 [History] Calcium/Magnesium/Zinc [Qjakvwe-Xqmvazqvj-Zdii Tablet] 1 each PO BID 07/05/20 [History] Chlorzoxazone [Parafon Forte DSC] 500 mg PO TID 07/05/20 [History] Pantoprazole Sodium [Protonix] 40 mg PO BID 07/05/20 [History] Zicam 1 - 2 sprays NASAL DIRECTED PRN 07/05/20 [History] Cholecalciferol [Vitamin D3 (25 Mcg = 1000 Iu)] 25 mcg PO DAILY 03/28/22 [History] Folic Acid 1 mg PO DAILY 03/28/22 [History] Infliximab-Dyyb [Inflectra] 575 mg IV DIRECTED 03/28/22 [History] Levocetirizine Dihydrochloride [Xyzal] 5 mg PO DAILY 03/28/22 [History] Meloxicam [Mobic] 15 mg PO DAILY PRN 03/28/22 [History] Methotrexate [Xatmep Oral Soln] 5 mg PO SA 03/28/22 [History] Metoprolol Succinate (ER) [Toprol Xl] 25 mg PO DAILY 03/28/22 [History] hydroCHLOROthiazide 12.5 mg PO DAILY 04/09/22 [History] Follow up Appointment(s)/Referral(s): Boone Goins MD [STAFF PHYSICIAN] - 04/16/22 1:00 pm (APPOINTMENT IS @ [facility] LOCATION )
[2022-04-10 08:56] VITALS: BP 129/82
[2022-04-10] MEDS ORDERED: ASPIRIN 81 MG PO SCH (09:00)
[2022-04-10] MEDS ORDERED: NON FORMULARY DRUG (Potassium [Potassium] 99 MG Tablet) PO SCH (09:00)
[2022-04-10] MEDS ORDERED: METOPROLOL SUCCINATE (ER) 25 MG TAB.ER.24H PO SCH (09:00)
[2022-04-10] MEDS ORDERED: LORATADINE 10 MG TAB PO SCH (09:00)
[2022-04-10] MEDS ORDERED: hydroCHLOROthiazide 12.5 MG CAP PO SCH (09:00)
[2022-04-10] MEDS ORDERED: CHOLECALCIFEROL 25 MCG (1000 IU) TABLET PO SCH (09:00)
[2022-04-10] MEDS ORDERED: FOLIC ACID 1 MG TAB PO SCH (09:00)
[2022-04-10] MEDS ORDERED: TICAGRELOR 90 MG TAB PO SCH (09:00)
[2022-04-10 09:02] LABS: African American GFR (CKD) >90 (>60 ml/min/1.73 sqM); Non-African American GFR(CKD) >90 (>60 ml/min/1.73 sqM)
[2022-04-14] MEDS ORDERED: metHOTREXate sodium 2.5 MG TAB PO SCH (09:00)
== END 2022-04-10 09:37 | disposition home or self-care (01) ==
LOC: CATHCVL 07:17 → 6NMEDSUR 09:50 → CATHCVL 04-10 09:37
PROVIDERS: ATTEND Internal Medicine Interventional Cardiology
DX: I25.10 Atherosclerotic heart disease of native coronary artery without angina pectoris (principal); I10 Essential (primary) hypertension; E78.5 Hyperlipidemia, unspecified; F17.210 Nicotine dependence, cigarettes, uncomplicated; Z95.5 Presence of coronary angioplasty implant and graft; Z79.82 Long term (current) use of aspirin; Z79.899 Other long term (current) drug therapy
CPT/HCPCS: 92978; 93458; 92921; 82565; C1769 ×6; C9600; C1760; C1894 ×2; C1725 ×5; C1753; C1874; J2250; J2001 ×2; J1644; Q9967 ×2

== ENCOUNTER 2022-05-19 16:00 | Observation (INO) | payer OTHER ==
[2022-05-19] MEDS ORDERED: ASPIRIN 81 MG PO STA (16:43)
--- NOTE | 2022-05-19 16:49 | ED ---
Chest Pain HPI - General Chief Complaint: Chest Pain Stated Complaint: Chest pain and SOB Time Seen by Provider: 05/19/22 16:38 Source: patient Mode of arrival: wheelchair Limitations: no limitations - History of Present Illness Initial Comments: Patient is a 62-year-old male with history of COPD and hypertension presenting with chief complaint of chest pain. Patient has had worsening chest tightness, shortness of breath, and nonproductive cough over the last week. He states that he is felt feverish at home and has been experiencing chills. He also feels as though his heart is racing. He admits to lightheadedness on exertion. No lower extremity swelling, nausea, vomiting, abdominal pain, headache, vision or hearing changes, diarrhea. - Related Data Home Medications Medication Instructions Recorded Confirmed Montelukast [Singulair] 10 mg PO HS 02/01/14 05/19/22 Loperamide HCl [Imodium A-D] 2 mg PO HS 09/07/15 05/19/22 Sildenafil Citrate [Viagra] 100 mg PO DAILY PRN 11/07/17 05/19/22 Potassium 99 mg PO DAILY 03/02/19 05/19/22 Valsartan [Diovan] 40 mg PO HS 03/02/19 05/19/22 Aspirin 81 mg PO DAILY 07/05/20 05/19/22 Calcium/Magnesium/Zinc 1 tab PO BID 07/05/20 05/19/22 [Dkszxhp-Ghxxmmcxh-Inbw Tablet] Pantoprazole Sodium [Protonix] 40 mg PO BID 07/05/20 05/19/22 Zicam 1 - 2 sprays NASAL DIRECTED PRN 07/05/20 05/19/22 Cholecalciferol [Vitamin D3 (25 25 mcg PO BID 03/28/22 05/19/22 Mcg = 1000 Iu)] Folic Acid 1 mg PO DAILY 03/28/22 05/19/22 Infliximab-Dyyb [Inflectra] 575 mg IV Q49D 03/28/22 05/19/22 Levocetirizine Dihydrochloride 5 mg PO BID 03/28/22 05/19/22 [Xyzal] Meloxicam [Mobic] 15 mg PO DAILY PRN 03/28/22 05/19/22 Metoprolol Succinate (ER) [Toprol 25 mg PO DAILY 03/28/22 05/19/22 XL] hydroCHLOROthiazide 12.5 mg PO DAILY 04/09/22 05/19/22 Albuterol Nebulized [Ventolin 2.5 mg INHALATION RT-QID PRN 05/19/22 05/19/22 Nebulized] Budesonide/Glycopyr/Formoterol 2 puff INHALATION RT-BID 05/19/22 05/19/22 [Breztri Aerosphere Inhaler] Clopidogrel [Plavix] 75 mg PO HS 05/19/22 05/19/22 Olopatadine HCl/Mometasone 1 spray EA NOSTRIL BID 05/19/22 05/19/22 [Ryaltris 665-25 Mcg [place]] metHOTREXate sodium [Methotrexate] 5 mg PO SA 05/19/22 05/19/22 Previous Rx's Medication Instructions Recorded Atorvastatin [Lipitor] 80 mg PO HS #90 tab 03/10/19 Allergies Allergy/AdvReac Type Severity Reaction Status Date / Time capsaicin Allergy Rash/Hives, Verified 05/19/22 17:46 BURNING FEELING tramadol Allergy Nausea & Verified 05/19/22 17:46 Vomiting Review of Systems ROS Statement: Those systems with pertinent positive or pertinent negative responses have been documented in the HPI. ROS Other: All systems not noted in ROS Statement are negative. EKG Findings - EKG Comments: EKG Findings:: Sinus tachycardia with first-degree AV block. Ventricular rate 102. NM interval 240. QRS 106. QT 344. QTC 403. Past Medical History Past Medical History: COPD, GERD/Reflux, Hypertension, Rheumatoid Arthritis (RA) Additional Past Medical History / Comment(s): Chronic lymphedema, R leg edema, past R lower leg cellulitis, venous insufficiency R leg, chronic generalized pain from RA, immunosuppressed, IBS with chronic diarrhea, chronic allergies, cholecystitis/lithiasis with sepsis-had cholecystectomy. History of Any Multi-Drug Resistant Organisms: MRSA Date of last positivie culture/infection: 11/19/18 MDRO Source:: Left Flank Past Surgical History: Cholecystectomy, Orthopedic Surgery Additional Past Surgical History / Comment(s): carpal tunnel Past Anesthesia/Blood Transfusion Reactions: No Reported Reaction Date of Last Stent Placement:: 04/09/2022 Past Psychological History: Depression Smoking Status: Former smoker Past Alcohol Use History: Daily Past Drug Use History: None Reported - Past Family History Mother Family Medical History: COPD Additional Family Medical History / Comment(s): Mother was a smoker. Father Family Medical History: COPD Additional Family Medical History / Comment(s): Father was a smoker. Son(s) Family Medical History: Cancer Additional Family Medical History / Comment(s): Brain CA General Exam Limitations: no limitations General appearance: alert, in no apparent distress Head exam: Present: atraumatic, normocephalic, normal inspection Eye exam: Present: normal appearance Neck exam: Present: normal inspection, full ROM Respiratory exam: Present: normal lung sounds bilaterally. Absent: respiratory distress, wheezes, rales, rhonchi, stridor Cardiovascular Exam: Present: regular rate, normal rhythm, normal heart sounds. Absent: systolic murmur, diastolic murmur, rubs, gallop, clicks Neurological exam: Present: alert, oriented X3, CN II-XII intact Psychiatric exam: Present: normal affect, normal mood Skin exam: Present: warm, dry, intact, normal color. Absent: rash Course Vital Signs 05/19/22 05/19/22 05/19/22 16:05 16:19 16:26 Temperature 99.9 F H Pulse Rate 108 H Pulse Rate [ 104 H Supine] Respiratory 20 Rate Blood Pressure 142/80 O2 Sat by Pulse 94 L 95 Oximetry Chest Pain MDM - MDM Was pt. sent in by a medical professional or institution (, PA, CAN RUNNER, urgent care, hospital, or retirement...) When possible be specific @ -No Did you speak to anyone other than the patient for history (EMS, parent, family, police, friend...)? What history was obtained from this source @ -No Did you review nursing and triage notes (agree or disagree)? Why? @ -I reviewed and agree with nursing and triage notes Were old charts reviewed (outside hosp., previous admission, EMS record, old EKG, old radiological studies, urgent care reports/EKG's, retirement records)? Report findings @ -No old charts were reviewed Differential Diagnosis (chest pain, altered mental status, abdominal pain women, abdominal pain men, vaginal bleeding, weakness, fever, dyspnea, syncope, headache, dizziness, GI bleed, back pain, seizure, CVA, palpatations, mental health, musculoskeletal)? @ -MDM Differential Dyspnea: Coronary syndrome, arrhythmia, tamponade, asthma, COPD, pulmonary embolism, pneumonia, pneumothorax, pulmonary effusion, anaphylaxis, diabetic ketoacidosis, flailed chest, pulmonary contusion, diaphragmatic rupture, anemia, neur omuscular this is not meant to be an all-inclusive list. EKG interpreted by me (3pts min.). @ -As above X-rays interpreted by me (1pt min.). @ -Chest x-ray shows interstitial opacities likely reflecting acute cardiopulmonary disease [place] chronic interstitial changes. CT interpreted by me (1pt min.). @ -None done U/S interpreted by me (1pt. min.). @ -None done What testing was considered but not performed or refused? (CT, X-rays, U/S, labs)? Why? @ -None What meds were considered but not given or refused? Why? @ -None Did you discuss the management of the patient with other professionals (professionals i.e. , PA, CAN RUNNER, lab, RT, psych nurse, director social welfare, profiling machine set up operator, teacher, training and development officer, director of casework department)? Give summary @ -Discussed with admitting physician Dr. Villanueva Was smoking cessation discussed for >3mins.? @ -No Was critical care preformed (if so, how long)? @ -No Were there social determinants of health that impacted care today? How? (Homelessness, low income, unemployed, alcoholism, drug addiction, transportation, low edu. Level, literacy, decrease access to med. care, shelter, rehab)? @ -No Was there de-escalation of care discussed even if they declined (Discuss DNR or withdrawal of care, Hospice)? DNR status @ -No What co-morbidities impacted this encounter? (DM, HTN, Smoking, COPD, CAD, Cancer, CVA, ARF, Chemo, Hep., AIDS, mental health diagnosis, sleep apnea, morbid obesity)? @ -COPD, hypertension, CAD Was patient admitted / discharged? Hospital course, mention meds given and route, prescriptions, significant lab abnormalities, going to OR and other pertinent info. @ -Patient is a 62-year-old male presenting with chief complaint of shortness of breath, chest pain, cough, and fever that's been worsening over the last week. On physical examination patient is tachycardic, febrile, and requiring oxygen via nasal cannula. Laboratory shows no leukocytosis or anemia. CMP shows sodium 134 and glucose 141 and total bili 1.8. Troponin is less than 0.012 and EKG shows no acute changes. BNP is 24. Patient is negative for influenza, RSV, and Covid. Chest x-ray shows evidence of interstitial infiltrates, given the patient's clinical presentation with cough and fever this aligns with a diagnosis of pneumonia. Patient is given a dose of Rocephin and azithromycin and blood cultures are drawn. Patient is not tolerating room air well, states that he gets extremely dizzy without oxygen on at this time. Due to his shortness of breath, but be beneficial at this time for initial treatment of pneumonia. I spoke with Dr. Villanueva accepted admission. Patient is agreeable with this plan. I discussed this case with my attending Dr. Santos. Undiagnosed new problem with uncertain prognosis? @ -No Drug Therapy requiring intensive monitoring for toxicity (Heparin, Nitro, Insulin, Cardizem)? @ -No Were any procedures done? @ -No Diagnosis/symptom? @ -Pneumonia Acute, or Chronic, or Acute on Chronic? @ -Acute Uncomplicated (without systemic symptoms) or Complicated (systemic symptoms)? @ -complicated Side effects of treatment? @ -No Exacerbation, Progression, or Severe Exacerbation? @ -No Poses a threat to life or bodily function? How? (Chest pain, [place], [place], pneumonia, PE, COPD, DKA, ARF, appy, cholecystitis, CVA, Diverticulitis, Homicidal, Suicidal, threat to staff... and all critical care pts) @ -yes Disposition Clinical Impression: Pneumonia Disposition: ADMITTED IP TO THIS HOSP Condition: Fair Time of Disposition: 18:12
--- NOTE | 2022-05-19 17:01 | XR ---
EXAMINATION TYPE: XR chest 2V DATE OF EXAM: 05/19/2022 COMPARISON: 04/24/2022 HISTORY: Chest pain TECHNIQUE: Frontal and lateral views of the chest are obtained. FINDINGS: There are moderate diffuse interstitial opacities which are worse compared to previous. This most lik vanessa reflects acute interstitial edema superimposed on mild chronic interstitial changes which have b een noted previously. The heart is not enlarged. There is no pleural effusion thorax. The osseous structures are intact IMPRESSION: Interval worsening of the interstitial opacities likely reflecting acute cardiopulmonary disease (pos sibly pulmonary edema) superimposed on chronic interstitial changes as described above.
[2022-05-19 17:08] LABS: Basophils # (A) 0.1 k/uL (0-0.2); Basophils % (A) 1 %; Eosinophils # (A) 0.1 k/uL (0-0.7); Eosinophils % (A) 1 %; HCT 44.3 % (39.0-53.0); HGB 15.4 gm/dL (13.0-17.5); Lymphocytes # (A) 0.7 k/uL (1.0-4.8); Lymphocytes % (A) 14 %; MCHC 34.8 g/dL (31.0-37.0); MCV 94.7 fL (80.0-100.0); Mean Platelet Volume 6.6; Monocytes # (A) 0.4 k/uL (0-1.0); Monocytes % (A) 8 %; Neutrophils # (A) 3.8 k/uL (1.3-7.7); Neutrophils % (A) 74 %; Platelet Count 199 k/uL (150-450); RBC 4.68 m/uL (4.30-5.90); RDW 12.4 % (11.5-15.5); WBC 5.2 k/uL (3.8-10.6)
[2022-05-19 17:13] LABS: ALT 34 U/L (4-49); AST 32 U/L (17-59); African American GFR (CKD) >90 (>60 ml/min/1.73 sqM); Albumin 3.8 g/dL (3.5-5.0); Alkaline Phosphatase 74 U/L (38-126); Anion Gap 10 mmol/L; Blood Urea Nitrogen 15 mg/dL (9-20); Calcium 8.4 mg/dL (8.4-10.2); Carbon Dioxide 22 mmol/L (22-30); Chloride 102 mmol/L (98-107); Glucose 141 mg/dL (74-99); Magnesium 2.1 mg/dL (1.6-2.3); Non-African American GFR(CKD) 85 (>60 ml/min/1.73 sqM); Potassium 3.6 mmol/L (3.5-5.1); Sodium 134 mmol/L (137-145); Total Bilirubin 1.8 mg/dL (0.2-1.3); Total Protein 6.5 g/dL (6.3-8.2)
[2022-05-19] MEDS ORDERED: ACETAMINOPHEN TAB 500 MG TAB PO STA (17:19)
[2022-05-19 17:24] LABS: Partial Thromboplastin Time 26.2 sec (22.0-30.0); Prothrombin Time 10.5 sec (9.0-12.0)
[2022-05-19] MEDS ORDERED: cefTRIAXone IN SWFI 1,000 MG/10 ML SYRINGE IVP STA (17:58)
[2022-05-19] MEDS ORDERED: ACETAMINOPHEN TAB 325 MG TAB PO PRN (18:09)
[2022-05-19] MEDS ORDERED: IBUPROFEN 400 MG TAB PO PRN (18:09)
[2022-05-19] MEDS ORDERED: NALOXONE 0.4 MG/ML 1 ML VIAL IV PRN (18:09)
[2022-05-19] MEDS ORDERED: AZITHROMYCIN 500 MG in SODIUM CHLORIDE 0.9% 250 ML IVPB STA (18:11)
--- NOTE | 2022-05-19 22:04 | P.HPIM ---
History of Present Illness H&P Date: 05/19/22 The patient is a 63-year-old male with a PMH of coronary artery disease status post stenting, COPD, rheumatoid arthritis, GERD, hypertension, hyperlipidemia, who presents to the emergency room with complaints of cough, shortness of breath, and chest discomfort. The patient reports that over the past 1 month, he has been experiencing a nonproductive nagging cough. Reports that earlier today he felt feverish and had some chills. He also reports gradually worsening shortness of breath over the past 2-3 weeks as well as substernal chest pressure, 3 out of 10, nonradiating, nonexertional, pressure-like in nature over the past 3 days. The patient states that the chest discomfort occurs up to 3 t imes a day, lasting for 5 minutes at a time and resolving spontaneously. Reports being pain-free at the time of interview. States that his chest discomfort is different from when he had his prior LA. The patient denied lower extremity edema or pain. Review of systems: Pertinent positives and negatives as discussed in HPI, a complete review of systems was performed and all other systems are negative. Physical examination: Vital signs reviewed General: non toxic, no distress, appears at stated age, obese Derm: no unusual rashes/lesions, warm Head: atraumatic, normocephalic, symmetric Eyes: EOMI, no lid lag, anicteric sclera, pupils equal round reactive to light ENT: Nose and ears atraumatic Neck: No cervical lymphadenopathy, trachea midline, supple Mouth: no lip lesion, mucus membranes moist Cardiovascular: S1S2 reg, no murmur, positive dorsalis pedis pulse bilateral, no edema Lungs: CTA bilateral, no rhonchi, no rales, no accessory muscle use Abdominal: soft, nontender to palpation, no guarding Ext: muscle strength 5 out of 5 in all 4 extremities grossly, no gross muscle atrophy, no contractures, Neuro: CN II-XI grossly intact, no gross focal neuro deficits Psych: Alert, oriented, appropriate affect Assessment: Community acquired pneumonia Chest pain with atypical features Chronic conditions: Rheumatoid arthritis, COPD, hypertension, hyperlipidemia, GERD Imaging: Chest x-ray in the emergency room revealed interval worsening of interstitial opacities with chronic interstitial changes. EKG had revealed sinus tachycardia with first-degree AV block at 102 bpm with poor R-wave progression. Data Review: Vital signs from presentation at the emergency room reviewed with temp 99.9F, pulse 108, respiratory rate 20, BP 142/80, and SpO2 94% on room air. Revealed the WBC count of 5.2, hemoglobin 15.4, platelets 199, sodium 136, potassium 3.6, glucose 141, total bilirubin 1.8, troponin less than 0.012, proBNP 24, with influenza, RSV, and coronavirus PCR negative. Plan: Continue with azithromycin 500 mg IV daily with ceftriaxone 2 g IV every 24 Follow-up blood cultures Cardiology consult Trend troponin Cardiac monitoring DVT prophylaxis: Heparin subcu The patient is admitted with an anticipated less than 2 midnight stay for evalu ation of community acquired pnuemonia CODE STATUS: Full Code Discussed with: Patient Anticipated discharge place: Home Past Medical History Past Medical History: COPD, GERD/Reflux, Hypertension, Rheumatoid Arthritis (RA) Additional Past Medical History / Comment(s): Chronic lymphedema, R leg edema, past R lower leg cellulitis, venous insufficiency R leg, chronic generalized pain from RA, immunosuppressed, IBS with chronic diarrhea, chronic allergies, cholecystitis/lithiasis with sepsis-had cholecystectomy. History of Any Multi-Drug Resistant Organisms: MRSA Date of last positivie culture/infection: 11/19/18 MDRO Source:: Left Flank Past Surgical History: Cholecystectomy, Orthopedic Surgery Additional Past Surgical History / Comment(s): carpal tunnel Past Anesthesia/Blood Transfusion Reactions: No Reported Reaction Date of Last Stent Placement:: 04/09/2022 Past Psychological History: Depression Smoking Status: Former smoker Past Alcohol Use History: Daily Past Drug Use History: None Reported - Past Family History Mother Family Medical History: COPD Additional Family Medical History / Comment(s): Mother was a smoker. Father Family Medical History: COPD Additional Family Medical History / Comment(s): Father was a smoker. Son(s) Family Medical History: Cancer Additional Family Medical History / Comment(s): Brain CA Medications and Allergies Home Medications Medication Instructions Recorded Confirmed Type Montelukast [Singulair] 10 mg PO HS 02/01/14 05/19/22 History Loperamide HCl [Imodium A-D] 2 mg PO HS 09/07/15 05/19/22 History Sildenafil Citrate [Viagra] 100 mg PO DAILY PRN 11/07/17 05/19/22 History Potassium 99 mg PO DAILY 03/02/19 05/19/22 History Valsartan [Diovan] 40 mg PO HS 03/02/19 05/19/22 History Atorvastatin [Lipitor] 80 mg PO HS #90 tab 03/10/19 05/19/22 Rx Aspirin 81 mg PO DAILY 07/05/20 05/19/22 History Calcium/Magnesium/Zinc 1 tab PO BID 07/05/20 05/19/22 History [Kypxzpr-Dojlgnumy-Cmtx Tablet] Pantoprazole Sodium [Protonix] 40 mg PO BID 07/05/20 05/19/22 History Zicam 1 - 2 sprays NASAL DIRECTED PRN 07/05/20 05/19/22 History Cholecalciferol [Vitamin D3 (25 25 mcg PO BID 03/28/22 05/19/22 History Mcg = 1000 Iu)] Folic Acid 1 mg PO DAILY 03/28/22 05/19/22 History Infliximab-Dyyb [Inflectra] 575 mg IV Q49D 03/28/22 05/19/22 History Levocetirizine Dihydrochloride 5 mg PO BID 03/28/22 05/19/22 History [Xyzal] Meloxicam [Mobic] 15 mg PO DAILY PRN 03/28/22 05/19/22 History Metoprolol Succinate (ER) [Toprol 25 mg PO DAILY 03/28/22 05/19/22 History XL] hydroCHLOROthiazide 12.5 mg PO DAILY 04/09/22 05/19/22 History Albuterol Nebulized [Ventolin 2.5 mg INHALATION RT-QID PRN 05/19/22 05/19/22 History Nebulized] Budesonide/Glycopyr/Formoterol 2 puff INHALATION RT-BID 05/19/22 05/19/22 History [Breztri Aerosphere Inhaler] Clopidogrel [Plavix] 75 mg PO HS 05/19/22 05/19/22 History Olopatadine HCl/Mometasone 1 spray EA NOSTRIL BID 05/19/22 05/19/22 History [Ryaltris 665-25 Mcg [place]] metHOTREXate sodium [Methotrexate] 5 mg PO SA 05/19/22 05/19/22 History Allergies Allergy/AdvReac Type Severity Reaction Status Date / Time capsaicin Allergy Rash/Hives, Verified 05/19/22 17:46 BURNING FEELING tramadol Allergy Nausea & Verified 05/19/22 17:46 Vomiting Physical Exam Vitals: Vital Signs Temp Pulse Pulse Resp BP BP Pulse Ox 05/19/22 20:00 97.6 F 83 17 126/83 97 05/19/22 16:26 95 05/19/22 16:19 104 H 05/19/22 16:05 99.9 F H 108 H 20 142/80 94 L Intake and Output 05/19/22 05/19/22 05/19/22 06:59 14:59 22:59 Other: Weight 116.573 kg Results CBC & Chem 7: 05/19/22 16:46 05/19/22 16:46 Labs: Abnormal Lab Results - Last 24 Hours (Table) 05/19/22 05/19/22 Range/Units 16:46 16:46 Lymphocytes # 0.7 L (1.0-4.8) k/uL Sodium 134 L (137-145) mmol/L Glucose 141 H (74-99) mg/dL Total Bilirubin 1.8 H (0.2-1.3) mg/dL Thrombosis Risk Factor Assmnt - Choose All That Apply Any of the Below Risk Factors Present?: Yes Each Factor Represents 1 point: Abnormal pulmonary function (COPD), Obesity (BMI >25) Other Risk Factors: Yes Each Risk Factor Represents 2 Points: Age 61-74 years Other congenital or acquired thrombophilia - If yes, enter type in comment: No Thrombosis Risk Factor Assessment Total Risk Factor Score: 4 Thrombosis Risk Factor Assessment Level: Moderate Risk
[2022-05-19] MEDS ORDERED: metHOTREXate sodium 2.5 MG TAB PO SCH (22:30)
[2022-05-19] MEDS: LOPERAMIDE 2 MG CAP PO SCH (22:58)
[2022-05-19] MEDS: PANTOPRAZOLE 40 MG TABLET PO SCH (22:58)
[2022-05-19] MEDS: HEPARIN SODIUM,PORCINE/PF 5,000 UNIT/0.5 ML SYRINGE SQ SCH (22:59)
[2022-05-19] MEDS: VALSARTAN 40 MG TAB PO SCH (22:59)
[2022-05-19] MEDS: CLOPIDOGREL 75 MG TAB PO SCH (22:59)
[2022-05-20] MEDS: PANTOPRAZOLE 40 MG TABLET PO SCH ×2 (06:24→16:56)
[2022-05-20] MEDS ORDERED: PANTOPRAZOLE 40 MG TABLET PO SCH (07:30)
[2022-05-20] MEDS: METOPROLOL SUCCINATE (ER) 25 MG TAB.ER.24H PO SCH (07:50)
[2022-05-20] MEDS: hydroCHLOROthiazide 12.5 MG CAP PO SCH (07:50)
[2022-05-20] MEDS: ASPIRIN 81 MG PO SCH (07:50)
[2022-05-20] MEDS: AZITHROMYCIN 500 MG in SODIUM CHLORIDE 0.9% 250 ML IVPB SCH (07:50)
[2022-05-20] MEDS: FOLIC ACID 1 MG TAB PO SCH (07:50)
[2022-05-20] MEDS ORDERED: SYMBICORT 160-4.5 MCG INHALER INHALATION SCH (08:00)
[2022-05-20] MEDS: IPRATROPIUM 0.5 MG/2.5 ML NEBU INHALATION SCH ×2 (08:20→11:33)
[2022-05-20] MEDS: HEPARIN SODIUM,PORCINE/PF 5,000 UNIT/0.5 ML SYRINGE SQ SCH ×2 (08:48→15:41)
[2022-05-20 10:33] LABS: Appearance,Urine Clear (Clear); Bilirubin,Urine Negative (Negative); Blood,Urine Trace (Negative); Color,Urine Yellow; Glucose,Urine (UA) Negative (Negative); Ketones,Urine Negative (Negative); Leukocyte Esterase,Urine Negative (Negative); Mucus,Urine Occasional /hpf; Nitrite,Urine Negative (Negative); PH, Urine 5.5 (5.0-8.0); Protein,Urine Trace (Negative); RBC,Urine 1 /hpf (0-5); Specific Gravity,Urine 1.024 (1.001-1.035); Urobilinogen,Urine <2.0 mg/dL (<2.0); WBC,Urine 1 /hpf (0-5)
--- NOTE | 2022-05-20 12:27 | P.CNPUL ---
History of Present Illness Consult date: 05/20/22 History of present illness: A 62-year-old male patient was has less for increased cough congestion chest tightness and wheezing. The patient has been having frequent coughing spells and for that reason he was hospitalized and the patient was also getting short of breath. Chest x-ray showed some increased interstitial markings bilaterally possibly some interstitial pneumonia. Note that the patient has history of rheumatoid arthritis. The patient also has history of COPD. The patient has been maintained on Breztri on outpatient basis regarding his COPD 2 puffs twice a day and albuterol neb blotchiness on an as-needed basis. A CT antigram that was on outpatient basis showed emphysematous changes in the upper lobes more so on the left. Otherwise, there was no evidence of any pulmonary embolism or any other interstitial lung disease. This was done in April 2022. Also, the patient has a maintenance immunosuppression. The patient has been taken INfex tra and low-dose methotrexate on outpatient basis. He has obstructive sleep apnea. He is maintained on BiPAP at a pressure of 13/9 cm of water. His influenza screen was negative. Over 19 testing was negative. RSV was negative. His blood work shows edematous count of 5.2, 15.4, normal coagulation profile, the patient has normal LFTs, normal troponins, normal electrolytes. He is currently on accommodation of Rocephin and Zithromax. Is quite sensitive to steroids and I opted to give him a low-dose IV Solu-Medrol 20 mg every 12 hours. Review of Systems Constitutional: Reports fatigue, Reports weakness Eyes: denies as per HPI, denies blurred vision, denies bulging eye, denies decreased vision, denies diplopia, denies discharge, denies dry eye, denies irritation, denies itching, denies pain, denies photophobia, denies loss of peripheral vision, denies loss of vision, denies tunnel vision/blind spots Ears: deny: decreased hearing, ear discharge, earache, tinnitus Ears, nose, mouth and throat: Reports as per HPI Breasts: absent: as per HPI, gynecomastia Cardiovascular: Reports decreased exercise tolerance, Reports dyspnea on exertion Respiratory: Reports cough, Reports dyspnea, Reports sleep apnea, Reports snoring, Reports wheezing Gastrointestinal: Reports as per HPI Genitourinary: Reports as per HPI Musculoskeletal: Reports as per HPI Musculoskeletal: absent: ankle pain, ankle stiffness, ankle swelling Integumentary: Reports as per HPI Neurological: Reports as per HPI Psychiatric: Reports as per HPI Endocrine: Reports as per HPI Hematologic/Lymphatic: Reports as per HPI Allergic/Immunologic: Reports as per HPI Past Medical History Past Medical History: COPD, GERD/Reflux, Hypertension, Rheumatoid Arthritis (RA) (Inflextra), Sleep Apnea/CPAP/BIPAP Additional Past Medical History / Comment(s): Chronic lymphedema, R leg edema, past R lower leg cellulitis, venous insufficiency R leg, chronic generalized pain from RA, immunosuppressed, IBS with chronic diarrhea, chronic allergies, cholecystitis/lithiasis with sepsis-had cholecystectomy. History of Any Multi-Drug Resistant Organisms: MRSA Date of last positivie culture/infection: 11/19/18 MDRO Source:: Left Flank Past Surgical History: Cholecystectomy, Orthopedic Surgery Additional Past Surgical History / Comment(s): carpal tunnel Past Anesthesia/Blood Transfusion Reactions: No Reported Reaction Date of Last Stent Placement:: 04/09/2022 Past Psychological History: Depression Smoking Status: Former smoker Past Alcohol Use History: Daily Past Drug Use History: None Reported - Past Family History Mother Family Medical History: COPD Additional Family Medical History / Comment(s): Mother was a smoker. Father Family Medical History: COPD Additional Family Medical History / Comment(s): Father was a smoker. Son(s) Family Medical History: Cancer Additional Family Medical History / Comment(s): Brain CA Medications and Allergies Home Medications Medication Instructions Recorded Confirmed Type Montelukast [Singulair] 10 mg PO HS 02/01/14 05/19/22 History Loperamide HCl [Imodium A-D] 2 mg PO HS 09/07/15 05/19/22 History Sildenafil Citrate [Viagra] 100 mg PO DAILY PRN 11/07/17 05/19/22 History Potassium 99 mg PO DAILY 03/02/19 05/19/22 History Valsartan [Diovan] 40 mg PO HS 03/02/19 05/19/22 History Atorvastatin [Lipitor] 80 mg PO HS #90 tab 03/10/19 05/19/22 Rx Aspirin 81 mg PO DAILY 07/05/20 05/19/22 History Calcium/Magnesium/Zinc 1 tab PO BID 07/05/20 05/19/22 History [Xllticw-Lxgjaxjwy-Rndn Tablet] Pantoprazole Sodium [Protonix] 40 mg PO BID 07/05/20 05/19/22 History Zicam 1 - 2 sprays NASAL DIRECTED PRN 07/05/20 05/19/22 History Cholecalciferol [Vitamin D3 (25 25 mcg PO BID 03/28/22 05/19/22 History Mcg = 1000 Iu)] Folic Acid 1 mg PO DAILY 03/28/22 05/19/22 History Infliximab-Dyyb [Inflectra] 575 mg IV Q49D 03/28/22 05/19/22 History Levocetirizine Dihydrochloride 5 mg PO BID 03/28/22 05/19/22 History [Xyzal] Meloxicam [Mobic] 15 mg PO DAILY PRN 03/28/22 05/19/22 History Metoprolol Succinate (ER) [Toprol 25 mg PO DAILY 03/28/22 05/19/22 History XL] hydroCHLOROthiazide 12.5 mg PO DAILY 04/09/22 05/19/22 History Albuterol Nebulized [Ventolin 2.5 mg INHALATION RT-QID PRN 05/19/22 05/19/22 History Nebulized] Budesonide/Glycopyr/Formoterol 2 puff INHALATION RT-BID 05/19/22 05/19/22 History [Breztri Aerosphere Inhaler] Clopidogrel [Plavix] 75 mg PO HS 05/19/22 05/19/22 History Olopatadine HCl/Mometasone 1 spray EA NOSTRIL BID 05/19/22 05/19/22 History [Ryaltris 665-25 Mcg [place]] metHOTREXate sodium [Methotrexate] 5 mg PO SA 05/19/22 05/19/22 History Allergies Allergy/AdvReac Type Severity Reaction Status Date / Time capsaicin Allergy Rash/Hives, Verified 05/19/22 17:46 BURNING FEELING tramadol Allergy Nausea & Verified 05/19/22 17:46 Vomiting Physical Exam Vitals: Vital Signs Temp Pulse Pulse Resp BP BP Pulse Ox 05/20/22 11:35 84 05/20/22 08:38 80 05/20/22 08:24 80 97 05/20/22 07:32 98.3 F 83 17 118/77 97 05/20/22 01:46 98.6 F 91 18 147/71 99 05/19/22 20:00 97.6 F 83 17 126/83 97 05/19/22 16:26 95 05/19/22 16:19 104 H 05/19/22 16:05 99.9 F H 108 H 20 142/80 94 L Intake and Output 05/19/22 05/20/22 05/20/22 21:59 06:59 14:59 Other: Voiding Method Weight Obese, comfortable not in acute distress currently on 2 L of O2 by nasal cannula. Having frequent coughing spells Head exam was generally normal. There was no scleral icterus or corneal arcus. Mucous membranes were moist. Neck was supple and without jugular venous distension, thyromegaly, or carotid bruits. Carotids were easily palpable bilaterally. There was no adenopathy. No hepatic or S4 with significant crowding of posterior pharynx. Lungs sounds are diminished bilaterally along with scattered rhonchi scattered expiratory wheezes. Cardiac exam revealed the PMI to be normally situated and sized. The rhythm was regular and no extrasystoles were noted during several minutes of auscultation. The first and second heart sounds were normal and physiologic splitting of the second heart sound was noted. There were no murmurs, rubs, clicks, or gallops. Abdominal exam revealed normal bowel sounds. The abdomen was soft, non-tender, and without masses, organomegaly, or appreciable enlargement of the abdominal aorta. Examination of the extremities revealed easily palpable radial, femoral and pedal pulses. There was no cyanosis, clubbing or edema. Examination of the skin revealed no evidence of significant rashes, suspicious appearing nevi or other concerning lesions. Results - Laboratory Findings CBC and BMP: 05/19/22 16:46 05/19/22 16:46 PT/INR, D-dimer PT 10.5 sec (9.0-12.0) 05/19/22 16:46 INR 1.0 (<1.2) 05/19/22 16:46 D-Dimer 0.36 mg/L FEU (<0.60) 05/19/22 16:46 Abnormal lab findings: Abnormal Labs 05/19/22 05/19/22 03 16:46 16:46 10:11 Lymphocytes # 0.7 L Sodium 134 L Glucose 141 H Total Bilirubin 1.8 H Urine Protein Trace H Urine Blood Trace H Urine Mucus Occasional H - Diagnostic Findings Chest x-ray: image reviewed Assessment and Plan Plan: Acute exacerbation of COPD with possibly some underlying interstitial pneumonia/atypical pneumonia. Upper chest ache infections need to be also considered especially the patient is immunosuppressed with a combination of Infectra and methotrexate. Dyspnea and cough secondary to above COPD with upper lobe predominance maintain on Breztri on outpatient basis Limited arthritis without evidence of any interstitial lung disease Chronic suppression Obstructive sleep apnea maintained on BiPAP at a pressure of 13/9 cm of water Coronary artery disease with previous coronary stenting Chronic lymphedema right lower extremity Chronic venous stasis right lower extremity. Irritable bowel syndrome Hypertension Acid reflux Plan Awaiting pro-calcitonin level Obtain sputum Gram stain and culture Obtain blood cultures Continue Rocephin and Zithromax Utilize a low-dose Solu-Medrol 20 mg every 12 hours as the patient is quite sensitive to systemic steroids and typically gets agitated Continue home medications Asked patient to bring him Breztri from home to be used here in the hospital 2 puffs twice a day and continue DuoNeb about treatments [id number] We'll continue to follow. Consider bronchoscopy if no improvement.
[2022-05-20] MEDS: methylPREDNISolone SOD SUCCI 40 MG/ML 1 ML VIAL IV SCH ×2 (12:35→20:49)
--- NOTE | 2022-05-20 12:43 | P.CRDCN ---
History of Present Illness Consult date: 05/20/22 Requesting physician: Millicent Villanueva Reason for Consult (text): chest pain Chief complaint: shortness of breath, chest pressure History of present illness: This is a pleasant 62-year-old gentleman who follows in the office with Dr. Goins. Past history significant for hypertension, hyperlipidemia, CAD status post stenting to the circumflex in 2018 and stenting of the diagonal branch in March of this year, COPD, and obstructive sleep apnea for which he is compliant with his CPAP. Presented to the emergency department with complaints of shortness of breath cough, chest pressure, fever and elevated heart rate at home. He apparently seen Dr. De Leon with complaints of cough and shortness of breath about a month ago and was given a course of steroids and an antibiotic without much improvement. He's also been having complaints of chest pressure/tightness, not occurring with activity, a few times a day, lasting for about 5-10 minutes each time and resolving spontaneously. He does not feel the symptoms are similar to anything he experienced prior to his stenting in the past. EKG on presentation showed sinus tachycardia with first-degree AV block. Troponins are negative 2. Chest x-ray showed interval worsening of interstitial disease likely reflecting acute cardiopulmonary disease (possibly pulmonary edema) superimposed chronic interstitial changes. NT proBNP was normal at 24. He has been initiated on IV antibiotics. Overall this morning he feels his breathing is a bit better. Continues to have occasional chest tightness/pressure lasting about 5 minutes and occurring randomly. He's been having some significant dizziness with coughing at home. No syncope. Denies any palpitations. Denies any orthopnea or PND. He has chronic lower extremity edema and this is stable. Past Medical History Past Medical History: COPD, GERD/Reflux, Hypertension, Rheumatoid Arthritis (RA) Additional Past Medical History / Comment(s): Chronic lymphedema, R leg edema, past R lower leg cellulitis, venous insufficiency R leg, chronic generalized pain from RA, immunosuppressed, IBS with chronic diarrhea, chronic allergies, cholecystitis/lithiasis with sepsis-had cholecystectomy. History of Any Multi-Drug Resistant Organisms: MRSA Date of last positivie culture/infection: 11/19/18 MDRO Source:: Left Flank Past Surgical History: Cholecystectomy, Orthopedic Surgery Additional Past Surgical History / Comment(s): carpal tunnel Past Anesthesia/Blood Transfusion Reactions: No Reported Reaction Date of Last Stent Placement:: 04/09/2022 Past Psychological History: Depression Smoking Status: Former smoker Past Alcohol Use History: Daily Past Drug Use History: None Reported - Past Family History Mother Family Medical History: COPD Additional Family Medical History / Comment(s): Mother was a smoker. Father Family Medical History: COPD Additional Family Medical History / Comment(s): Father was a smoker. Son(s) Family Medical History: Cancer Additional Family Medical History / Comment(s): Brain CA Medications and Allergies Home Medications Medication Instructions Recorded Confirmed Type Montelukast [Singulair] 10 mg PO HS 02/01/14 05/19/22 History Loperamide HCl [Imodium A-D] 2 mg PO HS 09/07/15 05/19/22 History Sildenafil Citrate [Viagra] 100 mg PO DAILY PRN 11/07/17 05/19/22 History Potassium 99 mg PO DAILY 03/02/19 05/19/22 History Valsartan [Diovan] 40 mg PO HS 03/02/19 05/19/22 History Atorvastatin [Lipitor] 80 mg PO HS #90 tab 03/10/19 05/19/22 Rx Aspirin 81 mg PO DAILY 07/05/20 05/19/22 History Calcium/Magnesium/Zinc 1 tab PO BID 07/05/20 05/19/22 History [Vdkrors-Mmviqeoxz-Jgyh Tablet] Pantoprazole Sodium [Protonix] 40 mg PO BID 07/05/20 05/19/22 History Zicam 1 - 2 sprays NASAL DIRECTED PRN 07/05/20 05/19/22 History Cholecalciferol [Vitamin D3 (25 25 mcg PO BID 03/28/22 05/19/22 History Mcg = 1000 Iu)] Folic Acid 1 mg PO DAILY 03/28/22 05/19/22 History Infliximab-Dyyb [Inflectra] 575 mg IV Q49D 03/28/22 05/19/22 History Levocetirizine Dihydrochloride 5 mg PO BID 03/28/22 05/19/22 History [Xyzal] Meloxicam [Mobic] 15 mg PO DAILY PRN 03/28/22 05/19/22 History Metoprolol Succinate (ER) [Toprol 25 mg PO DAILY 03/28/22 05/19/22 History XL] hydroCHLOROthiazide 12.5 mg PO DAILY 04/09/22 05/19/22 History Albuterol Nebulized [Ventolin 2.5 mg INHALATION RT-QID PRN 05/19/22 05/19/22 History Nebulized] Budesonide/Glycopyr/Formoterol 2 puff INHALATION RT-BID 05/19/22 05/19/22 History [Breztri Aerosphere Inhaler] Clopidogrel [Plavix] 75 mg PO HS 05/19/22 05/19/22 History Olopatadine HCl/Mometasone 1 spray EA NOSTRIL BID 05/19/22 05/19/22 History [Ryaltris 665-25 Mcg [place]] metHOTREXate sodium [Methotrexate] 5 mg PO SA 05/19/22 05/19/22 History Allergies Allergy/AdvReac Type Severity Reaction Status Date / Time capsaicin Allergy Rash/Hives, Verified 05/19/22 17:46 BURNING FEELING tramadol Allergy Nausea & Verified 05/19/22 17:46 Vomiting Physical Exam Vitals: Vital Signs Temp Pulse Pulse Resp BP BP Pulse Ox 05/20/22 08:38 80 05/20/22 08:24 80 97 05/20/22 07:32 98.3 F 83 17 118/77 97 05/20/22 01:46 98.6 F 91 18 147/71 99 05/19/22 20:00 97.6 F 83 17 126/83 97 05/19/22 16:26 95 05/19/22 16:19 104 H 05/19/22 16:05 99.9 F H 108 H 20 142/80 94 L Intake and Output 05/19/22 05/20/22 05/20/22 21:59 06:59 14:59 Other: Voiding Method Weight PHYSICAL EXAMINATION: This is a 62-year-old male in no apparent distress at the time of my examination. HEENT: Head is atraumatic, normocephalic. Pupils are equal, round. Sclerae anicteric. Conjunctivae are clear. Mucous membranes of the mouth are moist. Neck is supple. There is no elevated jugular venous pressure. No carotid bruit is heard. CHEST EXAMINATION: Clear to auscultation bilaterally. No wheezes rales or rhonchi. Respirations even and nonlabored. HEART EXAMINATION: Heart regular, positive S1 and S2. No S3. No S4. No clicks, rubs or murmurs. ABDOMEN: Soft, nontender. Bowel sounds are heard. No organomegaly noted. EXTREMITIES: 2+ peripheral pulses with evidence of mild peripheral edema and no calf tenderness noted. NEUROLOGIC EXAMINATION: Patient is awake, alert and oriented x3. Results 05/19/22 16:46 05/19/22 16:46 Cardiac Enzymes 05/19/22 05/19/22 05/19/22 Range/Units 16:46 16:46 22:00 AST 32 (17-59) U/L Troponin I <0.012 <0.012 (0.000-0.034) ng/mL Coagulation 05/19/22 Range/Units 16:46 PT 10.5 (9.0-12.0) sec APTT 26.2 (22.0-30.0) sec CBC 05/19/22 Range/Units 16:46 WBC 5.2 (3.8-10.6) k/uL RBC 4.68 (4.30-5.90) m/uL Hgb 15.4 (13.0-17.5) gm/dL Hct 44.3 (39.0-53.0) % Plt Count 199 (150-450) k/uL Comprehensive Metabolic Panel 05/19/22 Range/Units 16:46 Sodium 134 L (137-145) mmol/L Potassium 3.6 (3.5-5.1) mmol/L Chloride 102 (98-107) mmol/L Carbon Dioxide 22 (22-30) mmol/L BUN 15 (9-20) mg/dL Creatinine 0.96 (0.66-1.25) mg/dL Glucose 141 H (74-99) mg/dL Calcium 8.4 (8.4-10.2) mg/dL AST 32 (17-59) U/L ALT 34 (4-49) U/L Alkaline Phosphatase 74 (38-126) U/L Total Protein 6.5 (6.3-8.2) g/dL Albumin 3.8 (3.5-5.0) g/dL Current Medications Generic Name Dose Route Start Last Admin Trade Name Freq PRN Reason Stop Dose Admin Acetaminophen 650 mg 05/19/22 18:09 Acetaminophen Tab 325 Mg Tab PO Q6HR PRN Mild Pain or Fever > 100.5 Aspirin 81 mg 05/20/22 09:00 05/20/22 07:50 Aspirin 81 Mg PO 81 mg DAILY DEV Administration Atorvastatin Calcium 80 mg 05/20/22 21:00 Atorvastatin 80 Mg Tab PO HS DEV Budesonide/Formoterol Fumarate 2 puff 05/20/22 08:00 05/20/22 08:21 Symbicort 160-4.5 Mcg Inhaler INHALATION 2 puff RT-BID DEV Administration Clopidogrel Bisulfate 75 mg 05/19/22 22:31 05/19/22 22:59 Clopidogrel 75 Mg Tab PO 75 mg HS DEV Administration Folic Acid 1 mg 05/20/22 09:00 05/20/22 07:50 Folic Acid 1 Mg Tab PO 1 mg DAILY DEV Administration Heparin Sodium (Porcine) 5,000 unit 05/20/22 00:00 05/20/22 08:48 Heparin Sodium,Porcine/Pf 5,000 Unit/0.5 Ml Syringe SQ 05/21/22 00:01 5,000 unit Q8HR DEV Administration Hydrochlorothiazide 12.5 mg 05/20/22 09:00 05/20/22 07:50 Hydrochlorothiazide 12.5 Mg Cap PO 12.5 mg DAILY DEV Administration Ceftriaxone Sodium 2 gm/ 50 mls @ 100 mls/hr 05/20/22 18:00 Sodium Chloride IVPB Q24H DEV Protocol Azithromycin 500 mg/ Sodium 250 mls @ 250 mls/hr 05/20/22 09:00 05/20/22 07:50 Chloride IVPB 05/22/22 09:59 250 mls/hr DAILY DEV Administration Protocol Ipratropium Page 0.5 mg 05/20/22 08:00 05/20/22 08:20 Ipratropium 0.5 Mg/2.5 Ml Nebu INHALATION 0.5 mg RT-QID DEV Administration Loperamide HCl 2 mg 05/19/22 22:45 05/19/22 22:58 Loperamide 2 Mg Cap PO 2 mg HS DEV Administration Methotrexate 5 mg 05/19/22 22:30 05/19/22 22:59 Methotrexate Sodium 2.5 Mg Tab PO 5 mg Sa@0900 DEV Administration Metoprolol Succinate 25 mg 05/20/22 09:00 05/20/22 07:50 Metoprolol Succinate (Er) 25 Mg Tab.Er.24h PO 25 mg DAILY DEV Administration Montelukast Sodium 10 mg 05/20/22 21:00 Montelukast 10 Mg Tab PO HS DEV Naloxone HCl 0.2 mg 05/19/22 18:09 Naloxone 0.4 Mg/Ml 1 Ml Vial IV Q2M PRN Opioid Reversal Pantoprazole Sodium 40 mg 05/19/22 22:30 05/20/22 06:24 Pantoprazole 40 Mg Tablet PO 40 mg AC-BID DEV Administration Valsartan 40 mg 05/19/22 22:30 05/19/22 22:59 Valsartan 40 Mg Tab PO 40 mg HS DEV Administration Intake and Output 05/19/22 05/20/22 05/20/22 21:59 06:59 14:59 Other: Voiding Method Weight 05/19/22 16:46 05/19/22 16:46 EKG Interpretations (text) sinus tachycardia with first-degree AV block Assessment and Plan Assessment: 1 community Acquired pneumonia 2 symptoms of chest pressure/tightness, acute coronary event has been ruled out, likely due to the pneumonia 3 CAD s/p PCI involving the circumflex in 2018 and diagonal branch in March of this year, maintained on DAPT 4 hypertension 5 hyperlipidemia 6 COPD 7 VIANNEY Plan: From cardiology's perspective patient underwent echocardiogram in March that showed a normal EF and no significant valvular abnormalities, no need to repeat this at this time. From my standpoint patient's symptoms do not seem to be cardiac. Agree with pulmonary evaluation. We'll continue to follow the patient provide further recommendations accordingly. B[employer]ING [employer] GRADER AND MARKER note has been reviewed, I agree with a documented findings and plan of care. Patient was seen and examined.
[2022-05-20] MEDS: [UNRECOGNIZED DRUG - OTHER] EA NOSTRIL SCH ×2 (15:41→20:51)
[2022-05-20] MEDS ORDERED: ALBUTEROL NEBULIZED 2.5 MG/3 ML INHALATION PRN (17:34)
--- NOTE | 2022-05-20 17:40 | P.PN ---
Subjective Progress Note Date: 05/20/22 Hospital course: Patient is a very pleasant 62-year-old male with a past medical history of CAD status post stenting x2, hypertension, hyperlipidemia, COPD, GERD, and rheumatoid arthritis. He presented to the emergency department with a chief complaint of cough, congestion, exertional dyspnea, and chest pain beginning approximately 2 weeks ago and progressively worsening. He underwent full evaluation in the emergency department. Labs completed and reviewed. CBC and coagulation profile unremarkable. BMP showing mild hyponatremia with sodium of 134, hyperglycemia with glucose of 141, and slightly elevated bilirubin of 1.8. D-dimer normal findings is 0.36. Troponin was negative at less than 0.012 and pro-BMP only 24. Influenza A, influenza B, RSV, and Covid PCR were all negative. Chest x-ray completed in radiology report reviewed showing interval worsening of the interstitial opacities superimposed on chronic interstitial lung disease. EKG completed showing sinus tachycardia at 102 bpm with a first-degree AV block with SC interval of 240 ms and no noted T-wave or ST abnormalities upon personal review and interpretation. Patient was admitted under our services for treatment of community-acquired pneumonia and evaluation for chest pain with atypical features with consultation to cardiology and pulmonology. Troponins trended overnight negative at less than 0.0122 draws. Physical exam: Patient seen and fully evaluated at bedside this morning. He was sitting up on the edge of bed and appeared to be doing well. He was on room air maintaining SpO2 greater than 90%. Patient reports coarse cough and states shortness of breath controlled at rest but significantly worsens with exertion. He denies currently having any chest pain but does report pain across chest with coughing. Vital signs reviewed and stable. General: Nontoxic, no distress and appears stated age. Derm: Skin warm and dry, normal coloration for ethnicity. Head: Atraumatic, normocephalic and symmetric. Eyes: EOMs intact, no lid lag, and anicteric sclera Mouth: no lip lesions, mucus membranes moist Cardiovascular: regular rate and rhythm with normal S1S2, no murmur, positive posterior tibial pulses bilaterally, and cap refill < 2 seconds. Lungs: Respirations even, regular, and unlabored on room air. Lungs CTA bilaterally, no rhonchi, no rales, no wheezing, and no accessory muscle usage. Abdominal: soft, nontender to palpation, no guarding, no appreciable organomegaly Ext: ROM intact. No gross muscle atrophy, no edema, no contractures Neuro: Speech clear, face symmetrical and CN II-XII grossly intact with no noted focal neuro deficits Psych: Alert and oriented to person, place, time, and situation. Appropriate and pleasant affect. Assessment and Plan of Care: Labs completed and reviewed. CBC and coagulation profile unremarkable. BMP showing mild hyponatremia with sodium of 134, hyperglycemia with glucose of 141, and slightly elevated bilirubin of 1.8. D-dimer normal findings is 0.36. Troponin was negative at less than 0.012 and pro-BMP only 24. Influenza A, influenza B, RSV, and Covid PCR were all negative. Chest x-ray completed in radiology report reviewed showing interval worsening of the interstitial opacities superimposed on chronic interstitial lung disease. EKG completed showing sinus tachycardia at 102 bpm with a first-degree AV block with SC interval of 240 ms and no noted T-wave or ST abnormalities upon personal review and interpretation. Patient was admitted under our services for treatment of community-acquired pneumonia and evaluation for chest pain with atypical features with consultation to cardiology and pulmonology. Troponins trended overnight negative at less than 0.0122 draws. Community-acquired pneumonia Acute COPD exacerbation likely secondary to above Atypical chest pain, acute coronary event ruled out Obstructive sleep apnea CPAP dependent nightly -Pulmonology following recommending low-dose Solu-Medrol 20 mg IVP every 12 hours as patient is quite sensitive to systemic steroids resulting in moderate agitation. -Cardiology following and reviewed documentation with cardiology ruling out acute coronary event stating patient's symptoms do not appear to be cardiac associated at this time therefore no need for further cardiac inpatient testing to be completed. -Order placed for CPAP nightly and will napping -Ventolin nebulizer treatment scheduled for times daily and needed for SOB and/or wheezing -Order placed for patient to use home inhaler Breztri as well as home nasal spray Ryaltris -Incentive Spirometry, encourage he is tender 15 times hourly while awake. -Steroids: Prednisone 20 mg IVP every 12 hours -Antibiotics: Azithromycin and Rocephin -Order placed for pro-calcitonin and repeat BMP and CBC with morning labs. Chronic conditions: History of CAD status post stenting 2 Hypertension Hyperlipidemia GERD Rheumatoid arthritis CODE STATUS: Full code DVT prophylaxis: Heparin Discussed with: Patient, RN, and pulmonology Anticipated discharge date: 24-[address]: Home with COPD Navigator program Patient was seen independently by Nurse Pracitioner. This document was prepared using [employer] dictation software. Please allow for errors in research animal attendant, while rare they do occur. I reviewed the documentation as provided by the MANISH above, who is the original a uthor of this note. I agree with the documented assessment and plan, with the following changes: none Objective - Vital Signs Vital signs: Vital Signs Temp 98.3 F 05/20/22 07:32 Pulse 80 05/20/22 08:38 Resp 17 05/20/22 07:32 BP 118/77 05/20/22 07:32 Pulse Ox 97 05/20/22 08:24 FiO2 Intake & Output 05/19/22 05/20/22 05/20/22 17:59 06:59 18:59 Weight Other: Voiding Method - Labs CBC & Chem 7: 05/19/22 16:46 05/19/22 16:46 Labs: Abnormal Lab Results - Last 24 Hours (Table) 05/19/22 05/19/22 Range/Units 16:46 16:46 Lymphocytes # 0.7 L (1.0-4.8) k/uL Sodium 134 L (137-145) mmol/L Glucose 141 H (74-99) mg/dL Total Bilirubin 1.8 H (0.2-1.3) mg/dL
[2022-05-20] MEDS ORDERED: ALBUTEROL HFA INHALER INHALATION PRN (19:03)
[2022-05-20] MEDS: ALBUTEROL HFA INHALER INHALATION SCH (19:29)
[2022-05-20] MEDS: BREZTRI INHALATION SCH (19:30)
[2022-05-20] MEDS: [UNRECOGNIZED DRUG - OTHER] INHALATION SCH (19:30)
[2022-05-20] MEDS ORDERED: [UNRECOGNIZED DRUG - OTHER] INHALATION SCH (20:00)
[2022-05-20] MEDS ORDERED: BREZTRI INHALATION SCH (20:00)
[2022-05-20] MEDS ORDERED: ALBUTEROL NEBULIZED 2.5 MG/3 ML INHALATION SCH (20:00)
[2022-05-20] MEDS: LOPERAMIDE 2 MG CAP PO SCH (20:49)
[2022-05-20] MEDS: CLOPIDOGREL 75 MG TAB PO SCH (20:49)
[2022-05-20] MEDS: VALSARTAN 40 MG TAB PO SCH (20:49)
[2022-05-20] MEDS ORDERED: MONTELUKAST 10 MG TAB PO SCH (21:00)
[2022-05-20] MEDS ORDERED: [UNRECOGNIZED DRUG - OTHER] EA NOSTRIL SCH (21:00)
[2022-05-20] MEDS ORDERED: CLOPIDOGREL 75 MG TAB PO SCH (21:00)
[2022-05-20] MEDS ORDERED: ATORVASTATIN 80 MG TAB PO SCH (21:00)
[2022-05-20] MEDS ORDERED: VALSARTAN 40 MG TAB PO SCH (21:00)
[2022-05-21] MEDS: HEPARIN SODIUM,PORCINE/PF 5,000 UNIT/0.5 ML SYRINGE SQ SCH (00:17)
[2022-05-21 03:06] VITALS: TEMP 97.7
[2022-05-21] MEDS: PANTOPRAZOLE 40 MG TABLET PO SCH (07:05)
--- NOTE | 2022-05-21 07:46 | P.PN ---
Subjective Progress Note Date: 05/21/22 Principal diagnosis: Pneumonia The patient is a 62-year-old gentleman with CAD and prior stenting of the RCA and diagonal as well as hypertension and dyslipidemia over we and sleep apnea was admitted to the hospital with chest discomfort and shortness of breath and he was diagnosed with a pneumonia. Acute coronary event was ruled out. 05/21/2022 The patient was seen and evaluated this morning. The chest discomfort has resolved completely. As a mentioned earlier acute coronary event was ruled out and we felt that the chest discomfort is related to pneumonia which has improved after he was started on antibiotic. Vitals are stable. The physical examination overall appeared to be unremarkable. From the cardiovascular standpoint of view, we'll continue the current medical regimen and follow-up with the patient on when necessary case. Assessment Community-acquired pneumonia Atypical chest discomfort Coronary artery disease with prior stenting as described above Hypertension Dyslipidemia Sleep apnea Plan Continue the current medical regimen The chest discomfort has resolved after the patient was started on antibiotic We'll follow-up with the patient on when necessary case Objective - Vital Signs Vital signs: Vital Signs Temp 97.7 F 05/21/22 02:00 Pulse 89 05/21/22 02:00 Resp 17 05/21/22 02:00 BP 130/70 05/21/22 02:00 Pulse Ox 96 05/21/22 02:00 FiO2 Intake & Output 05/20/22 05/21/22 05/21/22 18:59 06:59 18:59 Other: Voiding Method Toilet # Voids 3 3 - Labs CBC & Chem 7: 05/19/22 16:46 05/19/22 16:46 Labs: Abnormal Lab Results - Last 24 Hours (Table) 05/20/22 05/20/22 Range/Units 10:11 17:41 Procalcitonin 0.11 H (0.02-0.09) ng/mL Urine Protein Trace H (Negative) Urine Blood Trace H (Negative) Urine Mucus Occasional H (None) /hpf Microbiology - Last 24 Hours (Table) 05/19/22 18:15 Blood Culture - Preliminary Blood No Growth after 24 hours 05/19/22 18:40 Blood Culture - Preliminary Blood No Growth after 24 hours
[2022-05-21 07:52] VITALS: BP 124/75; PULSE 78; RESP 16
[2022-05-21] MEDS: [UNRECOGNIZED DRUG - OTHER] INHALATION SCH (08:13)
[2022-05-21] MEDS: ALBUTEROL HFA INHALER INHALATION SCH ×2 (08:13→12:17)
[2022-05-21] MEDS: BREZTRI INHALATION SCH (08:13)
[2022-05-21] MEDS: methylPREDNISolone SOD SUCCI 40 MG/ML 1 ML VIAL IV SCH (08:16)
[2022-05-21] MEDS: AZITHROMYCIN 500 MG in SODIUM CHLORIDE 0.9% 250 ML IVPB SCH (08:16)
[2022-05-21] MEDS: FOLIC ACID 1 MG TAB PO SCH (08:17)
[2022-05-21] MEDS: hydroCHLOROthiazide 12.5 MG CAP PO SCH (08:17)
[2022-05-21] MEDS: ASPIRIN 81 MG PO SCH (08:17)
[2022-05-21] MEDS: METOPROLOL SUCCINATE (ER) 25 MG TAB.ER.24H PO SCH (08:17)
[2022-05-21] MEDS: [UNRECOGNIZED DRUG - OTHER] EA NOSTRIL SCH (08:26)
[2022-05-21 09:11] LABS: Basophils # (A) 0 X 10*3/uL (0.00-0.10); Basophils % (A) 0 %; Eosinophils # (A) 0 X 10*3/uL (0.04-0.35); Eosinophils % (A) 0 %; HCT 42.9 % (39.6-50.0); HGB 14.1 g/dL (13.0-17.0); Immature Grans, Automated 0.4 %; Lymphocytes # (A) 0.61 X 10*3/uL (0.90-5.00); MCHC 32.9 g/dL (32.0-37.0); MCV 97.3 fL (80.0-97.0); Mean Platelet Volume 9.1 fL (9.5-12.2); Monocytes # (A) 0.22 X 10*3/uL (0.20-1.00); NRBC Per 100 WBC 0 /100 WBCS (0.0-0.0); Neutrophils # (A) 4.69 X 10*3/uL (1.80-7.70); Neutrophils % (A) 84.6 %; Platelet Count 208 X 10*3/uL (140-440); RBC 4.41 X 10*6/uL (4.40-5.60); RDW 12.5 % (11.5-14.5); WBC 5.54 X 10*3/uL (4.50-10.00)
[2022-05-21 09:16] LABS: African American GFR (CKD) 93.1 (60.0-200.0); Anion Gap 10.5 mmol/L (10.00-18.00); BUN/Creat Ratio 13.7 Ratio (12.00-20.00); Blood Urea Nitrogen 13.7 mg/dL (9.0-27.0); Calcium 9.4 mg/dL (8.7-10.3); Carbon Dioxide 25.5 mmol/L (20.0-27.5); Non-African American GFR(CKD) 80.3 (60.0-200.0)
--- NOTE | 2022-05-21 11:14 | XR ---
EXAMINATION TYPE: XR chest 1V portable DATE OF EXAM: 05/21/2022 11:07 AM COMPARISON: Chest radiographs from 05/19/2022 TECHNIQUE: XR chest 1V portable Portable AP radiograph of the chest. CLINICAL INDICATION:Male, 62 years old with history of Atelectasis; FINDINGS: Lungs/Pleura: There is no evidence of pleural effusion, focal consolidation, or pneumothorax. Decrea sed interstitial opacities from prior examination. Chronic senescent parenchymal changes. Heart/mediastinum: Cardiomediastinal silhouette is prominent in size. Musculoskeletal: No acute osseous pathology. IMPRESSION: Decreased interstitial opacities from prior examination superimposed upon chronic interstitial change s.
--- NOTE | 2022-05-21 13:33 | P.PN ---
Subjective Progress Note Date: 05/21/22 A 62-year-old male patient was has less for increased cough congestion chest tightness and wheezing. The patient has been having frequent coughing spells and for that reason he was hospitalized and the patient was also getting short of breath. Chest x-ray showed some increased interstitial markings bilaterally possibly some interstitial pneumonia. Note that the patient has history of rheumatoid arthritis. The patient also has history of COPD. The patient has been maintained on Breztri on outpatient basis regarding his COPD 2 puffs twice a day and albuterol neb blotchiness on an as-needed basis. A CT antigram that was on outpatient basis showed emphysematous changes in the upper lobes more so on the left. Otherwise, there was no evidence of any pulmonary embolism or any other interstitial lung disease. This was done in April 2022. Also, the patient has a maintenance immunosuppression. The patient has been taken INfextra and low-dose methotrexate on outpatient basis. He has obstructive sleep apnea. He is maintained on BiPAP at a pressure of 13/9 cm of water. His influenza screen was negative. Over 19 testing was negative. RSV was negative. His blood work shows edematous count of 5.2, 15.4, normal coagulation profile, the patient has normal LFTs, normal troponins, normal electrolytes. He is currently on accommodation of Rocephin and Zithromax. Is quite sensitive to steroids and I opted to give him a low-dose IV Solu-Medrol 20 mg every 12 hours. The patient is seen today 05/21/2022 in follow-up on the regular medical floor. He is up ambulating in his room. Awake and alert in no acute distress. He is maintaining O2 saturations in the 90s on room air. His chest x-ray showing a decrease in the interstitial opacities superimposed on chronic interstitial cuevas ges. Suspected due to rheumatoid. Blood cultures reveal no growth. White count 5.5. Hemoglobin 14.1. Sodium 138. Potassium 5.0. BUN 14. Creatinine 1.0. Glucose 141. Pro-Calcitonin 0.11. He is continued on ceftriaxone and azithromycin. Continued on IV Solu-Medrol. Continued on bronchodilators. Objective - Vital Signs Vital signs: Vital Signs Temp 97.7 F 05/21/22 07:29 Pulse 78 05/21/22 07:29 Resp 16 05/21/22 07:29 BP 124/75 05/21/22 07:29 Pulse Ox 98 05/21/22 08:14 FiO2 Intake & Output 05/20/22 05/21/22 05/21/22 18:59 06:59 18:59 Other: Voiding Method Toilet # Voids 3 3 1 - Exam GENERAL EXAM: Alert, active, pleasant 62-year-old male, on room air, comfortable in no apparent distress. HEAD: Normocephalic. EYES: Normal reaction of pupils, equal size. NOSE: Clear with pink turbinates. THROAT: No erythema or exudates. NECK: No masses, no JVD. CHEST: No chest wall deformity. LUNGS: Equal air entry with few basilar crackles. CVS: S1 and S2 normal with no audible murmur, regular rhythm. ABDOMEN: No hepatosplenomegaly, normal bowel sounds, no guarding or rigidity. SPINE: No scoliosis or deformity SKIN: No rashes CENTRAL NERVOUS SYSTEM: No focal deficits, tone is normal in all 4 extremities. EXTREMITIES: There is no peripheral edema. No clubbing, no cyanosis. Peripheral pulses are intact. - Labs CBC & Chem 7: 05/21/22 04:54 05/21/22 04:54 Labs: Abnormal Lab Results - Last 24 Hours (Table) 05/20/22 05/21/22 05/21/22 Range/Units 17:41 04:54 04:54 MCV 97.3 H (80.0-97.0) fL MPV 9.1 L (9.5-12.2) fL Lymphocytes # 0.61 L (0.90-5.00) X 10*3/uL Eosinophils # 0 L (0.04-0.35) X 10*3/uL Glucose 141 H (70-110) mg/dL Procalcitonin 0.11 H (0.02-0.09) ng/mL Microbiology - Last 24 Hours (Table) 05/19/22 18:15 Blood Culture - Preliminary Blood No Growth after 24 hours 05/19/22 18:40 Blood Culture - Preliminary Blood No Growth after 24 hours Assessment and Plan Assessment: Acute exacerbation of COPD with possibly some underlying interstitial pneumonia/atypical pneumonia. Suspect some rheumatoid lung. The patient is immunosuppressed with a combination of Inflectra and methotrexate. Pro- calcitonin 0.11. Dyspnea and cough secondary to above COPD with upper lobe predominance maintain on Breztri on outpatient basis Limited arthritis without evidence of any interstitial lung disease Chronic suppression Obstructive sleep apnea maintained on BiPAP at a pressure of 13/9 cm of water Coronary artery disease with previous coronary stenting Chronic lymphedema right lower extremity Chronic venous stasis right lower extremity. Irritable bowel syndrome Hypertension Acid reflux Plan: The patient was seen and evaluated Chest x-ray, labs and medications are reviewed Cleared for discharge from pulmonary standpoint No need for antibiotics Continue prednisone taper Continue his home pulmonary medications Follow up with Dr. De Leon in 1 week I have personally seen and examined the patient, performed the documentation and the assessment and plan as written. Number of minutes spent on the visit: 10.
--- NOTE | 2022-05-21 15:19 | P.DS ---
Providers Date of admission: 05/19/22 18:10 Expected date of discharge: 05/21/22 Attending physician: Millicent Villanueva MD Consults: 05/19/22 18:09 Consult Physician Urgent Consulting Provider: Anita De Leon Consult Reason/Comments: pneumonia, hx COPD Do you want consulting provider notified?: Yes 05/19/22 22:01 Consult Physician Urgent Consulting Provider: Boone Goins Consult Reason/Comments: chest pain Do you want consulting provider notified?: Yes Primary care physician: [facility] Course: Discharge Diagnosis: Acute COPD exacerbation, patient at baseline oxygen status. He was evaluated by cut out press operator who recommended outpatient follow-up in their office and no further needs for inpatient hospitalization discharged home on prednisone taper and with COPD Navigator program. Atypical chest pain, acute coronary event ruled out. Patient evaluated by cardiology ruling out acute coronary event stating from cardiology perspective patient underwent echocardiogram in March that showed a normal EF and had no significant valvular abnormalities recommending no further need to repeat testing at this time clearing patient from cardiac perspective. Obstructive sleep apnea CPAP dependent nightly. Continue use of CPAP nightly. History of CAD status post stenting 2. Continue dual antiplatelet therapy with aspirin and Plavix. Hypertension. Continue home medication regimen with hydrochlorothiazide and valsartan. Hyperlipidemia. Continue daily medication regimen with atorvastatin. GERD. Continue daily medication regimen with Protonix. Rheumatoid arthritis. Continue daily medication regimen with methotrexate Community-acquired pneumonia, ruled out. Chest x-ray with decrease in interstit ial opacities superimposed on chronic interstitial changes suspected due to rheumatoid. WBC count 5.54, pro-calcitonin 0.11, and blood cultures showing no growth to date. Hospital Course: Patient is a very pleasant 62-year-old male with a past medical history of CAD status post stenting x2, hypertension, hyperlipidemia, COPD, GERD, and rheumatoid arthritis. He presented to the emergency department with a chief complaint of cough, congestion, exertional dyspnea, and chest pain beginning approximately 2 weeks ago and progressively worsening. He underwent full evaluation in the emergency department. Labs completed and reviewed. CBC and coagulation profile unremarkable. BMP showing mild hyponatremia with sodium of 134, hyperglycemia with glucose of 141, and slightly elevated bilirubin of 1.8. D-dimer normal findings is 0.36. Troponin was negative at less than 0.012 and pro-BMP only 24. Influenza A, influenza B, RSV, and Covid PCR were all negative. Chest x-ray completed in radiology report reviewed showing interval worsening of the interstitial opacities superimposed on chronic interstitial lung disease. EKG completed showing sinus tachycardia at 102 bpm with a first-degree AV block with RI interval of 240 ms and no noted T-wave or ST abnormalities upon personal review and interpretation. Patient was admitted under our services for treatment of community-acquired pneumonia and evaluation for chest pain with atypical features with consultation to cardiology and pulmonology. Troponins trended overnight negative at less than 0.0122 draws. Patient evaluated by cardiology ruling out acute coronary event stating from cardiology perspective patient underwent echocardiogram in March that showed a normal EF and had no signif icant valvular abnormalities recommending no further need to repeat testing at this time clearing patient from cardiac perspective. Repeat chest x-ray completed and reviewed by cut out press operator stating suspected changes due to rheumatoid. Repeat chest x-ray showing decreased interstitial opacities superimposed on chronic interstitial changes. WBC count 5.54, pro-calcitonin 0.11, and blood cultures showing no growth to date. Pulmonology recommending discontinuation of antibiotic and discharged home on prednisone taper. Medically, patient is stable at this time with SpO2 of 99% on room air. Patient being discharged home on COPD Navigator program and prednisone taper. Patient to follow-up outpatient with PCP in 1-2 days along with cardiology and pulmonology in 1-2 weeks. Physical exam: Vital signs reviewed and stable. General: Nontoxic, no distress and appears stated age. Derm: Skin warm and dry, normal coloration for ethnicity. Head: Atraumatic, normocephalic and symmetric. Eyes: EOMs intact, no lid lag, and anicteric sclera Mouth: no lip lesions, mucus membranes moist Cardiovascular: regular rate and rhythm with normal S1S2, no murmur, positive posterior tibial pulses bilaterally, and cap refill < 2 seconds. Lungs: Respirations even, regular, and unlabored on room air. Lungs CTA bilaterally, no rhonchi, no rales, no wheezing, and no accessory muscle usage. Abdominal: soft, nontender to palpation, no guarding, no appreciable organomegaly Ext: ROM intact. No gross muscle atrophy, no edema, no contractures Neuro: Speech clear, face symmetrical and CN II-XII grossly intact with no noted focal neuro deficits Psych: Alert and oriented to person, place, time, and situation. Appropriate and pleasant affect. A total of minutes of time were spent preparing this complex discharge summary. Pt was discharged on 05/21/22 at 2:38 PM Patient was seen independently by Nurse Practitioner. This document was prepared using [employer] dictation software. Please allow for errors in budget manager while rare they do occur. I reviewed the documentation as provided by the MANISH above, who is the original author of this note. I agree with the documented assessment and plan, with the following changes: none Patient Condition at Discharge: Stable Plan - Discharge Summary Discharge Rx Participant: No New Discharge Prescriptions: New predniSONE See Taper PO DIRECTED 16 Days #30 tab Continue Montelukast [Singulair] 10 mg PO HS Loperamide HCl [Imodium A-D] 2 mg PO HS Sildenafil Citrate [Viagra] 100 mg PO DAILY PRN PRN Reason: ED Valsartan [Diovan] 40 mg PO HS Potassium 99 mg PO DAILY Atorvastatin [Lipitor] 80 mg PO HS #90 tab Aspirin 81 mg PO DAILY Cholecalciferol [Vitamin D3 (25 Mcg = 1000 Iu)] 25 mcg PO BID Folic Acid 1 mg PO DAILY Levocetirizine Dihydrochloride [Xyzal] 5 mg PO BID Clopidogrel [Plavix] 75 mg PO HS Albuterol Nebulized [Ventolin Nebulized] 2.5 mg INHALATION RT-QID PRN PRN Reason: Shortness Of Breath Zicam 1 - 2 sprays NASAL DIRECTED PRN PRN Reason: congestion, allergies Calcium/Magnesium/Zinc [Ctmsrga-Mynhidxkh-Wwlp Tablet] 1 tab PO BID Pantoprazole Sodium [Protonix] 40 mg PO BID Infliximab-Dyyb [Inflectra] 575 mg IV Q49D Metoprolol Succinate (ER) [Toprol XL] 25 mg PO DAILY Meloxicam [Mobic] 15 mg PO DAILY PRN PRN Reason: Pain hydroCHLOROthiazide 12.5 mg PO DAILY metHOTREXate sodium [Methotrexate] 5 mg PO SA Budesonide/Glycopyr/Formoterol [Breztri Aerosphere Inhaler] 2 puff INHALATION RT-BID Olopatadine HCl/Mometasone [Ryaltris 665-25 Mcg [place]] 1 spray EA NOSTRIL BID Discharge Medication List Montelukast [Singulair] 10 mg PO HS 02/01/14 [History] Loperamide HCl [Imodium A-D] 2 mg PO HS 09/07/15 [History] Sildenafil Citrate [Viagra] 100 mg PO DAILY PRN 11/07/17 [History] Potassium 99 mg PO DAILY 03/02/19 [History] Valsartan [Diovan] 40 mg PO HS 03/02/19 [History] Atorvastatin [Lipitor] 80 mg PO HS #90 tab 03/10/19 [Rx] Aspirin 81 mg PO DAILY 07/05/20 [History] Calcium/Magnesium/Zinc [Swvxfnc-Zunkngbcm-Qsah Tablet] 1 tab PO BID 07/05/20 [History] Pantoprazole Sodium [Protonix] 40 mg PO BID 07/05/20 [History] Zicam 1 - 2 sprays NASAL DIRECTED PRN 07/05/20 [History] Cholecalciferol [Vitamin D3 (25 Mcg = 1000 Iu)] 25 mcg PO BID 03/28/22 [History] Folic Acid 1 mg PO DAILY 03/28/22 [History] Infliximab-Dyyb [Inflectra] 575 mg IV Q49D 03/28/22 [History] Levocetirizine Dihydrochloride [Xyzal] 5 mg PO BID 03/28/22 [History] Meloxicam [Mobic] 15 mg PO DAILY PRN 03/28/22 [History] Metoprolol Succinate (ER) [Toprol XL] 25 mg PO DAILY 03/28/22 [History] hydroCHLOROthiazide 12.5 mg PO DAILY 04/09/22 [History] Albuterol Nebulized [Ventolin Nebulized] 2.5 mg INHALATION RT-QID PRN 05/19/22 [History] Budesonide/Glycopyr/Formoterol [Breztri Aerosphere Inhaler] 2 puff INHALATION RT-BID 05/19/22 [History] Clopidogrel [Plavix] 75 mg PO HS 05/19/22 [History] Olopatadine HCl/Mometasone [Ryaltris 665-25 Mcg [place]] 1 spray EA NOSTRIL BID 05/19/22 [History] metHOTREXate sodium [Methotrexate] 5 mg PO SA 05/19/22 [History] predniSONE See Taper PO DIRECTED 16 Days #30 tab 05/21/22 [Rx] Follow up Appointment(s)/Referral(s): Boone Goins MD [STAFF PHYSICIAN] - 1 Week (pt will call to make appointment) Shawanda Pruett MD [Primary Care Provider] - 1-2 days (pt will call to make appointment) Adonay Strauss MD [STAFF PHYSICIAN] - 1 Week (pt will call to make appointment) Patient Instructions/Handouts: COPD (Chronic Obstructive Pulmonary Disease) (DC), Chronic Bronchitis (DC), Chronic Lung Disease and Infection Prevention (DC), Pulmonary Rehabilitation (DC), Energy Conservation Techniques (ED) Activity/Diet/Wound Care/Special Instructions: Activity: As tolerated. Take breaks as needed. Diet: Heart healthy and carb consistent diet. Avoid salts, or foods with hidden salts such as canned or boxed foods and frozen dinners. Extra salt makes your heart work harder and traps the fluid in your body for longer. Special Instructions: Take all of your medications as directed and remember to keep all of your doctor's appointments and follow-up as needed. You are being discharged home with the COPD Navigator program as discussed. Thank you for allowing us to participate in your care, it was truly a pleasure having you for our patient!!! Discharge Disposition: HOME SELF-CARE
[2022-05-22] MEDS ORDERED: predniSONE 20 MG TAB PO SCH (09:00)
[2022-05-26] MEDS ORDERED: metHOTREXate sodium 2.5 MG TAB PO SCH (09:00)
== END 2022-05-21 15:20 | disposition home or self-care (01) ==
LOC: EC 16:00 → 4SSUR 18:10
PROVIDERS: ADMIT Internal Medicine; ATTEND Internal Medicine
DX: J44.1 Chronic obstructive pulmonary disease with (acute) exacerbation (principal); R07.89 Other chest pain; I10 Essential (primary) hypertension; K21.9 Gastro-esophageal reflux disease without esophagitis; M06.9 Rheumatoid arthritis, unspecified; I89.0 Lymphedema, not elsewhere classified; Z87.39 Personal history of other diseases of the musculoskeletal system and connective tissue; I87.2 Venous insufficiency (chronic) (peripheral); D84.9 Immunodeficiency, unspecified; K58.0 Irritable bowel syndrome with diarrhea; Z87.19 Personal history of other diseases of the digestive system; Z90.49 Acquired absence of other specified parts of digestive tract; Z86.14 Personal history of Methicillin resistant Staphylococcus aureus infection; Z98.890 Other specified postprocedural states; F32.A Depression, unspecified; Z87.891 Personal history of nicotine dependence; Z83.6 Family history of other diseases of the respiratory system; Z80.8 Family history of malignant neoplasm of other organs or systems; Z79.82 Long term (current) use of aspirin; Z79.02 Long term (current) use of antithrombotics/antiplatelets; Z79.899 Other long term (current) drug therapy; Z88.6 Allergy status to analgesic agent; Z88.8 Allergy status to other drugs, medicaments and biological substances
CPT/HCPCS: 96376 ×2; 96365; 96366 ×2; 96372 ×3; 96375 ×2; 99285; 36415; 94640 ×4; 94760 ×2; 93005; 85379; 83880; 80053; 80048; 83735; 84484; 85025 ×2; 85610; 85730; 81001; 87040; 84145; 87636; 71045; 71046; G0378 ×3; J2920 ×2; J0456 ×3; J0696 ×2; J8610; J1644 ×3

== ENCOUNTER → 2022-09-13 | Outpatient (CLI) | payer OTHER ==
--- NOTE | 2022-09-13 10:07 | CT ---
EXAMINATION TYPE: CT sinus wo con CT DLP: 575.3 mGycm, Automated exposure control for dose reduction was used. DATE OF EXAM: 09/13/2022 9:52 AM COMPARISON: 09/25/2021. CLINICAL INDICATION:Male, 62 years old with history of J01.00,R05.3; , Acute maxillary sinusitis TECHNIQUE: Multiple thin axial images were obtained through the paranasal sinuses without the use of IV contrast. Additional coronal and sagittal reformatted images were submitted for evaluation. Contrast used: none Oral contrast used: none FINDINGS: Frontal sinuses: Hypoplastic left, normal right normal aeration. Frontal Recess: Clear Maxillary Sinuses: Normally developed with mild mucosal thickening. Maxillary Infundibula([facility]): Partially opacified bilaterally., No Sindhu cells identified. Ethmoid sinuses: Normally developed and aerated. No significant mucosal thickening. Ethmoidal notch: Protected and abutting the lateral lamina. Sphenoid sinuses: Normally developed and aerated. There is sellar sphenoid sinus pneumatization witho ut evidence of dehiscence. No dehiscence of carotid canal. No evidence of optic nerve dehiscence wit hin the sphenoid sinus. No evidence of Onodi cells. Sphenoethmoidal recesses: Clear. Nasal septum: Within normal limits.. Nasal Turbinates: Within normal limits. Mastoid air cells & middle ears: The air cells are clear. The middle ears are grossly unremarkable. Modified Soft tissues & Brain: Partially seen without gross abnormality. Globes are intact. Other: Cribriform plate demonstrates symmetric Keros classification type 1 cribriform plate. No evidence of bony dehiscence of skull base. Lamina papyracea is intact without evidence of remote orbital fracture or orbital prolapse into the e thmoid sinus. Calcific/metallic in the inferior medial aspect of the left lobe measuring at least 1 mm. This appear s more dense on today's exam suggesting desiccation change around what was seen on prior. IMPRESSION: 1. No significant mucosal sinus disease. No significant change from prior. 2. The ostiomeatal units, frontonasal and sphenoethmoidal recesses are clear. 3. Radiopaque foreign body versus calcification that be in the inferior medial aspect of the left megan be superficially. This is similar prior.
--- NOTE | 2022-09-13 10:13 | CT ---
EXAMINATION TYPE: CT soft tissue neck wo con CT DLP: 639.30 mGycm, Automated exposure control for dose reduction was used. DATE OF EXAM: 09/13/2022 9:52 AM COMPARISON: Chest 04/24/2022. CLINICAL INDICATION:Male, 62 years old with history of J01.00,R05.3; PHH, Chronic cough TECHNIQUE: Standard enhanced CT of the neck. Axial sections with coronal and sagittal reformats were obtained. Contrast used: none Oral contrast used: none. FINDINGS: Brain: Visualized portions are grossly unremarkable. Orbits: Unremarkable Sinuses: Grossly unremarkable. Spaces of the neck: Clear and symmetric. Airway is patent. Musculoskeletal: No acute osseous pathology. Lymph nodes: Multiple nonenlarged lymph nodes are seen along both anterior chains of the neck. Vascular structures: Patent with atherosclerotic plaque of the internal carotid arteries at the bifur cation. Thoracic Inlet/airway: Airway is patent. Paraseptal and centrilobular emphysema changes in the lung a pices. Soft tissues/Thyroid: The right thyroid gland is visualized and may be surgically absent. The left th yroid gland is unremarkable. Atherosclerosis of the carotid bifurcations and internal carotid arterie s. Other: none. IMPRESSION 1. No evidence for lymphadenopathy or acute process. Airways patent. 2. Moderate paraseptal and centrilobular emphysema changes.
== END | disposition home or self-care (01) ==
LOC: RADCTMAIN 09:20
PROVIDERS: ATTEND Otolaryngology Otolaryngology/Facial Plastic Surgery
DX: J43.2 Centrilobular emphysema (principal); J01.00 Acute maxillary sinusitis, unspecified; R05.3 Chronic cough
CPT/HCPCS: 70486; 70490

== ENCOUNTER 2022-09-26 07:10 | Observation (INO) | payer OTHER ==
[2022-09-26] MEDS ORDERED: IPRATROPIUM BROMIDE 0.06% NASAL SPRAY (15 ML) NASAL ONE (07:32)
--- NOTE | 2022-09-26 07:37 | ED ---
GI Bleed HPI - General Chief complaint: GI Bleed Stated complaint: Rectal Bleeding Time Seen by Provider: 09/26/22 07:20 Source: patient, RN notes reviewed Mode of arrival: ambulatory Limitations: no limitations - History of Present Illness Initial comments: This is a 62-year-old male who presents to the emergency department for a GI bleed. Patient states that when he went to use the bathroom this morning, his bowel movement was essentially all blood. Unsure if there was any stool mixed in this, as he states that it was just liquid. He had to flush the toilet twice due to the amount of blood present. He has minor abdominal discomfort. Denies any history of rectal bleeding. He is on plavix. States that he has a history of GERD and is on Protonix. Denies any nausea or vomiting. He had a colonoscopy at [facility] last year with Dr. Montanez and was told everything was normal aside from a few polyps. Additionally, patient has a very loud cough. States that this has been present for the last couple of months and has been attributed to postnasal drainage. He has been on multiple treatments for the postnasal drainage including many steroid, antihistamine, and decongestant nasal sprays, all with no relief. Denies any fevers, chills, sore throat, dyspnea, chest pain, palpitations, nausea, vomiting, diarrhea, back pain, or headaches. MD complaint: gross hematochezia - Related Data Home Medications Medication Instructions Recorded Confirmed Loperamide HCl [Imodium A-D] 2 mg PO HS 09/07/15 09/26/22 Sildenafil Citrate [Viagra] 100 mg PO DAILY PRN 11/07/17 09/26/22 Potassium 99 mg PO DAILY 03/02/19 09/26/22 Valsartan [Diovan] 40 mg PO HS 03/02/19 09/26/22 Calcium/Magnesium/Zinc 1 tab PO BID 07/05/20 09/26/22 [Elicswm-Uiyadbwfj-Uezs Tablet] Pantoprazole Sodium [Protonix] 40 mg PO BID 07/05/20 09/26/22 Cholecalciferol [Vitamin D3 (25 25 mcg PO BID 03/28/22 09/26/22 Mcg = 1000 Iu)] Folic Acid 1 mg PO DAILY 03/28/22 09/26/22 Albuterol Nebulized [Ventolin 2.5 mg INHALATION RT-QID PRN 05/19/22 09/26/22 Nebulized] Clopidogrel [Plavix] 75 mg PO HS 05/19/22 09/26/22 metHOTREXate sodium [Methotrexate] 5 mg PO SA 05/19/22 09/26/22 Albuterol Sulfate [Albuterol 2 puff PO RT-BID 09/26/22 09/26/22 Sulfate Hfa] Budesonide/Formoterol Fumarate 2 puff INHALATION RT-BID 09/26/22 09/26/22 [Symbicort 160-4.5 Mcg Inhaler] Fexofenadine/Pseudoephedrine 1 tab PO BID 09/26/22 09/26/22 [Vikki-D 12 Hour Tablet] Metoprolol Succinate (ER) [Toprol 25 mg PO DAILY 09/26/22 09/26/22 Xl] inFLIXimab [Remicade] 1 dose IVPB Q49D 09/26/22 09/26/22 methylPREDNISolone [Medrol Dose See Taper PO DIRECTED 09/26/22 09/26/22 Pack] Previous Rx's Medication Instructions Recorded Atorvastatin [Lipitor] 80 mg PO HS #90 tab 03/10/19 Allergies Allergy/AdvReac Type Severity Reaction Status Date / Time capsaicin Allergy Rash/Hives, Verified 09/26/22 10:37 BURNING FEELING tramadol AdvReac Nausea & Verified 09/26/22 10:37 Vomiting Review of Systems ROS Statement: Those systems with pertinent positive or pertinent negative responses have been documented in the HPI. ROS Other: All systems not noted in ROS Statement are negative. Past Medical History Past Medical History: COPD, GERD/Reflux, Hypertension, Rheumatoid Arthritis (RA) Additional Past Medical History / Comment(s): Chronic lymphedema, R leg edema, past R lower leg cellulitis, venous insufficiency R leg, chronic generalized pain from RA, immunosuppressed, IBS with chronic diarrhea, chronic allergies, cholecystitis/lithiasis with sepsis-had cholecystectomy. History of Any Multi-Drug Resistant Organisms: MRSA Date of last positivie culture/infection: 11/19/18 MDRO Source:: Left Flank Past Surgical History: Cholecystectomy, Orthopedic Surgery Additional Past Surgical History / Comment(s): carpal tunnel Past Anesthesia/Blood Transfusion Reactions: No Reported Reaction Date of Last Stent Placement:: 04/09/2022 Past Psychological History: Depression Smoking Status: Former smoker Past Alcohol Use History: Daily Past Drug Use History: None Reported - Past Family History Mother Family Medical History: COPD Additional Family Medical History / Comment(s): Mother was a smoker. Father Family Medical History: COPD Additional Family Medical History / Comment(s): Father was a smoker. Son(s) Family Medical History: Cancer Additional Family Medical History / Comment(s): Brain CA General Exam Limitations: no limitations General appearance: alert, in no apparent distress Head exam: Present: atraumatic, normocephalic, normal inspection Respiratory exam: Present: normal lung sounds bilaterally. Absent: respiratory distress, wheezes, rales, rhonchi, stridor Cardiovascular Exam: Present: regular rate, normal rhythm, normal heart sounds. Absent: systolic murmur, diastolic murmur, rubs, gallop, clicks GI/Abdominal exam: Present: soft, normal bowel sounds. Absent: distended, tenderness, guarding, rebound, rigid Rectal exam: Present: heme (+) stool, other (External hemorrhoid) Neurological exam: Present: alert, oriented X3, CN II-XII intact Psychiatric exam: Present: normal affect, normal mood Skin exam: Present: warm, dry, intact, normal color. Absent: rash Course Vital Signs 09/26/22 09/26/22 09/26/22 07:14 08:00 08:38 Temperature 98.3 F Pulse Rate 81 84 84 Respiratory 18 18 20 Rate Blood Pressure 120/74 92/68 105/65 O2 Sat by Pulse 92 L 96 96 Oximetry 09/26/22 09/26/22 09/26/22 09:00 10:00 11:00 Temperature 97.1 F L Pulse Rate 85 80 80 Respiratory 20 20 18 Rate Blood Pressure 106/73 97/68 97/68 O2 Sat by Pulse 97 95 94 L Oximetry 09/26/22 09/26/22 12:15 14:37 Temperature 97.7 F 98.2 F Pulse Rate 78 79 Respiratory 20 18 Rate Blood Pressure 91/68 95/69 O2 Sat by Pulse 95 98 Oximetry Medical Decision Making - Medical Decision Making This is a 62-year-old male who presents to the emergency department for a GI bleed. Was pt. sent in by a medical professional or institution? @ -No Did you speak to anyone other than the patient for history? @ -No Did you review nursing and triage notes? @ -Yes, and I agree, it is accurate with regards to the patient's symptoms. Were old charts reviewed? @ -No Differential Diagnosis? @ -Differential GI Bleed: Esophageal varices, aortoenteric fistula, Sheila-العلي, gastritis, peptic ulcer disease, diverticulosis, inflammatory bowel disease, hemorrhoids, fissure, colitis, malignancy, Meckels diverticulum, this is not meant to be an all- inclusive list. EKG interpreted by me (3pts min.)? @ -EKG interpreted by me demonstrating the following: Sinus rhythm. Ventricular rate 77 beats per minute, ND interval 238 ms, QRS duration 100 ms, QTC 401 ms. X-rays interpreted by me (1pt min.)? @ -Chest x-ray obtained, my interpretation identifies no localized consolidations or infiltrates. CT interpreted by me (1pt min.)? @ -Computed tomography scan of the abdomen and pelvis obtained. My interpretation identifies no evidence of bowel wall thickening or free air. U/S interpreted by me (1pt. min.)? @ -Not obtained What testing was considered but not performed? (CT, X-rays, U/S, labs)? Why? @ -None What meds were considered but not given? Why? @ -None Did you discuss the management of the patient with other professionals? @ -Yes, Dr. Eubanks, who accepts the patient for admission. Did you reconcile home meds? @ -No Was smoking cessation discussed for >3mins.? @ -No Was critical care preformed (if so, how long)? @ -No Were there social determinants of health that impacted care today? How? (Homelessness, low income, unemployed, alcoholism, drug addiction, transportation, low edu. Level, literacy, decrease access to med. care, nursing home, rehab)? @ -No Was there de-escalation of care discussed even if they declined? (Discuss DNR or withdrawal of care, Hospice)? @ -No What co-morbidities impacted this encounter? (DM, HTN, Smoking, COPD, CAD, Cancer, CVA, Hep., AIDS, mental health diagnosis, sleep apnea, morbid obesity)? @ -GERD, HTN, RA Was patient admitted / discharged? @ -Admitted. Physical exam reveals one external hemorrhoid. When I did an internal exam for the Hemoccult blood test, a large amount of blood did come out on my gloved finger. There was no active bleeding from the rectum. Lab work obtained and found to be nonactionable. Stool occult is positive. Patient did start to have some hypotensive episodes and felt dizzy and nauseous. Chest x- ray was also obtained with regards to the coughing, and was found to be nonactionable. He did vomit a couple of times and was subsequently given a dose of Zofran. Believes that the vomiting was probably related to the postnasal drainage. Computed tomography scan of the abdomen and pelvis obtained revealing diverticulosis and hypodensity intraluminal material at the inferior cecum. Given that the patient had jeet blood, is on Plavix, and had been having hypotensive/dizzy episodes, will admit to medicine for GI consult and serial hemoglobins. Undiagnosed new problem with uncertain prognosis? @ -None Drug Therapy requiring intensive monitoring for toxicity (Heparin, Nitro, Insulin, Cardizem)? @ -None Were any procedures done? @ -None Diagnosis/symptom? @ -GI bleed Acute, or Chronic, or Acute on Chronic? @ -Acute Uncomplicated (without systemic symptoms) or Complicated (systemic symptoms)? @ -Complicated Side effects of treatment? @ -None Exacerbation, Progression, or Severe Exacerbation] @ -Not applicable Poses a threat to life or bodily function? @ -Yes This case was discussed in detail with the attending ED physician, Dr. Valerio. Presentation, findings, and treatment plan discussed in detail as well. - Lab Data Result diagrams: 09/26/22 07:45 09/26/22 07:45 Lab Results 09/26/22 09/26/22 09/26/22 Range/Units 07:45 07:45 07:45 WBC 7.4 (3.8-10.6) k/uL RBC 4.30 (4.30-5.90) m/uL Hgb 13.9 (13.0-17.5) gm/dL Hct 40.8 (39.0-53.0) % MCV 94.8 (80.0-100.0) fL MCH 32.3 (25.0-35.0) pg MCHC 34.0 (31.0-37.0) g/dL RDW 12.7 (11.5-15.5) % Plt Count 349 (150-450) k/uL MPV 6.9 Neutrophils % 76 % Lymphocytes % 15 % Monocytes % 6 % Eosinophils % 1 % Basophils % 0 % Neutrophils # 5.6 (1.3-7.7) k/uL Lymphocytes # 1.1 (1.0-4.8) k/uL Monocytes # 0.4 (0-1.0) k/uL Eosinophils # 0.1 (0-0.7) k/uL Basophils # 0.0 (0-0.2) k/uL APTT 23.7 (22.0-30.0) sec Fibrinogen 495 (200-500) mg/dL Sodium 137 (137-145) mmol/L Potassium 4.2 (3.5-5.1) mmol/L Chloride 105 (98-107) mmol/L Carbon Dioxide 23 (22-30) mmol/L Anion Gap 9 mmol/L BUN 14 (9-20) mg/dL Creatinine 0.77 (0.66-1.25) mg/dL Est GFR (CKD-EPI)AfAm >90 (>60 ml/min/1.73 sqM) Est GFR (CKD-EPI)NonAf >90 (>60 ml/min/1.73 sqM) Glucose 141 H (74-99) mg/dL Plasma Lactic Acid Richard (0.7-2.0) mmol/L Calcium 8.5 (8.4-10.2) mg/dL Total Bilirubin 0.9 (0.2-1.3) mg/dL AST 18 (17-59) U/L ALT 21 (4-49) U/L Alkaline Phosphatase 78 (38-126) U/L Troponin I (0.000-0.034) ng/mL NT-Pro-B Natriuret Pep pg/mL Total Protein 6.1 L (6.3-8.2) g/dL Albumin 3.6 (3.5-5.0) g/dL Stool Occult Blood (Negative) Influenza Type A (PCR) (Not Detectd) Influenza Type B (PCR) (Not Detectd) RSV (PCR) (Not Detectd) SARS-CoV-2 (PCR) (Not Detectd) 09/26/22 09/26/22 09/26/22 Range/Units 07:45 07:45 07:45 WBC (3.8-10.6) k/uL RBC (4.30-5.90) m/uL Hgb (13.0-17.5) gm/dL Hct (39.0-53.0) % MCV (80.0-100.0) fL MCH (25.0-35.0) pg MCHC (31.0-37.0) g/dL RDW (11.5-15.5) % Plt Count (150-450) k/uL MPV Neutrophils % % Lymphocytes % % Monocytes % % Eosinophils % % Basophils % % Neutrophils # (1.3-7.7) k/uL Lymphocytes # (1.0-4.8) k/uL Monocytes # (0-1.0) k/uL Eosinophils # (0-0.7) k/uL Basophils # (0-0.2) k/uL APTT (22.0-30.0) sec Fibrinogen (200-500) mg/dL Sodium (137-145) mmol/L Potassium (3.5-5.1) mmol/L Chloride (98-107) mmol/L Carbon Dioxide (22-30) mmol/L Anion Gap mmol/L BUN (9-20) mg/dL Creatinine (0.66-1.25) mg/dL Est GFR (CKD-EPI)AfAm (>60 ml/min/1.73 sqM) Est GFR (CKD-EPI)NonAf (>60 ml/min/1.73 sqM) Glucose (74-99) mg/dL Plasma Lactic Acid Richard 1.8 (0.7-2.0) mmol/L Calcium (8.4-10.2) mg/dL Total Bilirubin (0.2-1.3) mg/dL AST (17-59) U/L ALT (4-49) U/L Alkaline Phosphatase (38-126) U/L Troponin I <0.012 (0.000-0.034) ng/mL NT-Pro-B Natriuret Pep 27 pg/mL Total Protein (6.3-8.2) g/dL Albumin (3.5-5.0) g/dL Stool Occult Blood (Negative) Influenza Type A (PCR) (Not Detectd) Influenza Type B (PCR) (Not Detectd) RSV (PCR) (Not Detectd) SARS-CoV-2 (PCR) (Not Detectd) 09/26/22 09/26/22 Range/Units 07:45 07:56 WBC (3.8-10.6) k/uL RBC (4.30-5.90) m/uL Hgb (13.0-17.5) gm/dL Hct (39.0-53.0) % MCV (80.0-100.0) fL MCH (25.0-35.0) pg MCHC (31.0-37.0) g/dL RDW (11.5-15.5) % Plt Count (150-450) k/uL MPV Neutrophils % % Lymphocytes % % Monocytes % % Eosinophils % % Basophils % % Neutrophils # (1.3-7.7) k/uL Lymphocytes # (1.0-4.8) k/uL Monocytes # (0-1.0) k/uL Eosinophils # (0-0.7) k/uL Basophils # (0-0.2) k/uL APTT (22.0-30.0) sec Fibrinogen (200-500) mg/dL Sodium (137-145) mmol/L Potassium (3.5-5.1) mmol/L Chloride (98-107) mmol/L Carbon Dioxide (22-30) mmol/L Anion Gap mmol/L BUN (9-20) mg/dL Creatinine (0.66-1.25) mg/dL Est GFR (CKD-EPI)AfAm (>60 ml/min/1.73 sqM) Est GFR (CKD-EPI)NonAf (>60 ml/min/1.73 sqM) Glucose (74-99) mg/dL Plasma Lactic Acid Richard (0.7-2.0) mmol/L Calcium (8.4-10.2) mg/dL Total Bilirubin (0.2-1.3) mg/dL AST (17-59) U/L ALT (4-49) U/L Alkaline Phosphatase (38-126) U/L Troponin I (0.000-0.034) ng/mL NT-Pro-B Natriuret Pep pg/mL Total Protein (6.3-8.2) g/dL Albumin (3.5-5.0) g/dL Stool Occult Blood Positive (Negative) Influenza Type A (PCR) Not Detected (Not Detectd) Influenza Type B (PCR) Not Detected (Not Detectd) RSV (PCR) Not Detected (Not Detectd) SARS-CoV-2 (PCR) Not Detected (Not Detectd) - Radiology Data Radiology results: report reviewed, image reviewed Disposition Clinical Impression: GI bleed, Hematochezia Disposition: ADMITTED IP TO THIS HOSP
[2022-09-26 08:15] LABS: Basophils % (A) 0 %; Eosinophils # (A) 0.1 k/uL (0-0.7); Eosinophils % (A) 1 %; HCT 40.8 % (39.0-53.0); HGB 13.9 gm/dL (13.0-17.5); Lymphocytes # (A) 1.1 k/uL (1.0-4.8); Lymphocytes % (A) 15 %; MCH 32.3 pg (25.0-35.0); MCV 94.8 fL (80.0-100.0); Mean Platelet Volume 6.9; Monocytes # (A) 0.4 k/uL (0-1.0); Monocytes % (A) 6 %; Neutrophils # (A) 5.6 k/uL (1.3-7.7); Neutrophils % (A) 76 %; Platelet Count 349 k/uL (150-450); RDW 12.7 % (11.5-15.5); WBC 7.4 k/uL (3.8-10.6)
[2022-09-26] MEDS ORDERED: ONDANSETRON 4 MG/2 ML VIAL IVP STA (08:19)
[2022-09-26] MEDS ORDERED: SODIUM CHLORIDE 0.9% 1,000 ML IV STA (08:19)
[2022-09-26] MEDS ORDERED: FAMOTIDINE 20 MG/2 ML VIAL IV STA (08:20)
[2022-09-26] MEDS ORDERED: PANTOPRAZOLE 40 MG/10 ML VIAL IVP STA (08:20)
--- NOTE | 2022-09-26 08:35 | XR ---
EXAMINATION TYPE: XR chest 2V DATE OF EXAM: 09/26/2022 COMPARISON: 05/21/2022 TECHNIQUE: PA and lateral views submitted. HISTORY: Rectal bleeding FINDINGS: The lungs are clear and there is no pneumothorax, pleural effusion, or focal pneumonia. Heart size normal and no overt failure. Osseous structures demonstrate hypertrophic and degenerative changes of the spine. Hyperinflation of the lungs. Coarsened interstitium. IMPRESSION: 1. No acute process. 2. COPD correlate for pulmonary fibrosis.
[2022-09-26 08:37] LABS: ALT 21 U/L (4-49); AST 18 U/L (17-59); African American GFR (CKD) >90 (>60 ml/min/1.73 sqM); Albumin 3.6 g/dL (3.5-5.0); Alkaline Phosphatase 78 U/L (38-126); Anion Gap 9 mmol/L; Blood Urea Nitrogen 14 mg/dL (9-20); Calcium 8.5 mg/dL (8.4-10.2); Carbon Dioxide 23 mmol/L (22-30); Chloride 105 mmol/L (98-107); Glucose 141 mg/dL (74-99); Non-African American GFR(CKD) >90 (>60 ml/min/1.73 sqM); Potassium 4.2 mmol/L (3.5-5.1); Sodium 137 mmol/L (137-145); Total Bilirubin 0.9 mg/dL (0.2-1.3); Total Protein 6.1 g/dL (6.3-8.2)
[2022-09-26 08:57] LABS: Partial Thromboplastin Time 23.7 sec (22.0-30.0)
--- NOTE | 2022-09-26 09:44 | CT ---
EXAMINATION TYPE: CT abdomen pelvis w con DATE OF EXAM: 09/26/2022 COMPARISON: 09/07/2015 HISTORY: 62-year-old male GI Bleed, Gross hematochezia TECHNIQUE: Contiguous axial scanning of the abdomen and pelvis following administration of 100 ml Iso ghada 300 IV contrast. Delayed images through the kidneys and coronal/sagittal reconstructions perform ed. CT DLP: 2009.2 mGycm Automated exposure control for dose reduction was used. FINDINGS: LUNG BASES: Similar mild interstitial fibrosis in the lower lungs. Unchanged 6 mm subpleural pulmonar y nodule anterior lateral right base, additional nodularity measuring 6 mm posterior right base. Smal ler nodularity on the left. Interstitial changes have progressed from 2016. No pleural effusion. LIVER/GB: Status post cholecystectomy. There is a 3.4 cm diverticulum of the second portion of the du odenum projecting into the pancreatic head region. Otherwise, no specific abnormality seen. PANCREAS: Mild pancreatic atrophy. Otherwise, no significant abnormality is seen. SPLEEN: Small hilar splenule. Otherwise, no significant abnormality is seen. ADRENALS: No significant abnormality is seen. KIDNEYS: No significant abnormality is seen. BOWEL: There is some liquid stool seen throughout the colon. Mild scattered colonic diverticulosis, g reatest in the sigmoid colon there is some high density intraluminal material at the inferior cecum. A few diverticula along the right side of the colon are also outlined by high density material. Query any recent study where oral contrast was administered. No pericolonic inflammatory change. LYMPH NODES: No significant abnormality is seen. OTHER: Anatomic variation with a common trunk for the celiac axis and SMA. PELVIS: Bladder nondistended. No abnormal fluid collection in the pelvis or pelvic lymphadenopathy. BONES: Chronic superior endplate deformity of L4. Facet arthropathy lower lumbar spine with degenerat jake trace grade 1 anterolisthesis L5-S1. IMPRESSION: 1. MILD SCATTERED COLONIC DIVERTICULOSIS THOUGH PRESENT TO A GREATER EXTENT WITHIN THE SIGMOID COLON. NO EVIDENCE FOR ACUTE DIVERTICULITIS. 2. HYPODENSITY INTRALUMINAL MATERIAL AT THE INFERIOR CECUM AND ALSO OUTLINING A FEW DIVERTICULA ALONG THE RIGHT SIDE OF THE COLON. QUERY ANY RECENT STUDY WHERE ORAL CONTRAST WAS ADMINISTERED. 3. BASILAR INTERSTITIAL FIBROSIS SHOWS SOME PROGRESSION FROM 2016. UNDERLYING BASILAR PULMONARY NODUL ES ARE UNCHANGED.
[2022-09-26] MEDS ORDERED: NALOXONE 0.4 MG/ML 1 ML VIAL IV PRN (10:08)
[2022-09-26] MEDS ORDERED: ONDANSETRON 4 MG/2 ML VIAL IVP PRN (10:08)
[2022-09-26] MEDS ORDERED: ACETAMINOPHEN TAB 325 MG TAB PO PRN (10:08)
[2022-09-26] MEDS ORDERED: HYDROcodone/APAP 5-325MG 1 EACH TAB PO PRN (10:08)
[2022-09-26] MEDS ORDERED: MORPHINE SULFATE 4 MG/ML SYRINGE IV PRN (10:08)
[2022-09-26] MEDS ORDERED: ALBUTEROL NEBULIZED 2.5 MG/3 ML INHALATION PRN (14:45)
--- NOTE | 2022-09-26 14:47 | P.HPIM ---
History of Present Illness H&P Date: 09/26/22 Patient is a 62-year-old male with history of COPD, VIANNEY on CPAP, CAD status post stent, hypertension, dyslipidemia, GERD, rheumatoid arthritis presenting with bright red blood per rectum. His most recent stent was in May. He is currently on dual antiplatelet therapy. He started having bloody bowel movements this morning at 4 AM. Since then he has had about 4-5 bloody bowel mo vements with jeet blood. He did have colonoscopy 1 year ago where external hemorrhoids were noted. He is unsure about diverticulosis. He denies any fevers, chills, abdominal pain, nausea, vomiting, chest pain, lightheadedness, palpitations, or urinary complaints. In the ED, temperature was 98.3, pulse 81, respiratory rate 18, blood pressure 120/74, saturating at 92% on room air. Hemoglobin 13.9, BUN 14, creatinine 0.77, stool occult blood positive, respiratory viral panel negative. Patient ad CT abdomen and pelvis showed mild scattered colonic diverticulosis mitted for observation for acute lower GI bleed with GI consult. Pertinent positives and negatives as discussed in HPI, a complete review of systems was performed and all other systems are negative. Patient seen and examined at bedside. Vital signs reviewed General: nontoxic, no distress, appears at stated age Derm: warm, dry Head: atraumatic, normocephalic, symmetric Eyes: EOMI, no lid lag, anicteric sclera, pupils equal round reactive to light ENT: Nose and ears atraumatic Neck: No thyromegaly, supple Mouth: no lip lesion, mucus membranes moist Cardiovascular: S1S2 reg, no murmur, no edema Lungs: clear to auscultation bilateral, no rhonchi, no rales, no wheeze, no accessory muscle use Abdominal: soft, nontender to palpation, no guarding, no appreciable organomegaly Ext: no gross muscle atrophy, muscle strength muscle strength 5 out of 5 in all 4 extremities, no contractures Neuro: CN II-XII grossly intact Psych: Alert, oriented, appropriate affect Assessment/Plan: Active: Acute lower GI bleed likely diverticular bleed History of GERD History of CAD status post with recent stent, on dual antiplatelet -Monitor hemoglobin, currently stable -Hemodynamically stable -Continue IV Protonix 40 mg twice a day -GI consulted -Antiplatelet therapy on hold, pending recommendations from GI Chronic: COPD Dyslipidemia Hypertension Rheumatoid arthritis VIANNEY on CPAP The patient is admitted with an anticipated less than 2 midnight stay as observation status for evaluation of GI bleed. Surrogate decision-maker: spouse CODE STATUS: full code DVT prophylaxis: SCDs Anticipated discharge date: tomorrow Anticipated discharge place: home A total of 55 minutes was spent on the care of this complex patient more than 50% of the time was spent in counseling and care coordination. Past Medical History Past Medical History: COPD, GERD/Reflux, Hypertension, Rheumatoid Arthritis (RA) Additional Past Medical History / Comment(s): Chronic lymphedema, R leg edema, past R lower leg cellulitis, venous insufficiency R leg, chronic generalized pain from RA, immunosuppressed, IBS with chronic diarrhea, chronic allergies, cholecystitis/lithiasis with sepsis-had cholecystectomy. History of Any Multi-Drug Resistant Organisms: MRSA Date of last positivie culture/infection: 11/19/18 MDRO Source:: Left Flank Past Surgical History: Cholecystectomy, Orthopedic Surgery Additional Past Surgical History / Comment(s): carpal tunnel Past Anesthesia/Blood Transfusion Reactions: No Reported Reaction Date of Last Stent Placement:: 04/09/2022 Past Psychological History: Depression Smoking Status: Former smoker Past Alcohol Use History: Daily Past Drug Use History: None Reported - Past Family History Mother Family Medical History: COPD Additional Family Medical History / Comment(s): Mother was a smoker. Father Family Medical History: COPD Additional Family Medical History / Comment(s): Father was a smoker. Son(s) Family Medical History: Cancer Additional Family Medical History / Comment(s): Brain CA Medications and Allergies Home Medications Medication Instructions Recorded Confirmed Type Loperamide HCl [Imodium A-D] 2 mg PO HS 09/07/15 09/26/22 History Sildenafil Citrate [Viagra] 100 mg PO DAILY PRN 11/07/17 09/26/22 History Potassium 99 mg PO DAILY 03/02/19 09/26/22 History Valsartan [Diovan] 40 mg PO HS 03/02/19 09/26/22 History Atorvastatin [Lipitor] 80 mg PO HS #90 tab 03/10/19 09/26/22 Rx Calcium/Magnesium/Zinc 1 tab PO BID 07/05/20 09/26/22 History [Bweexqg-Dqwpddewh-Wfix Tablet] Pantoprazole Sodium [Protonix] 40 mg PO BID 07/05/20 09/26/22 History Cholecalciferol [Vitamin D3 (25 25 mcg PO BID 03/28/22 09/26/22 History Mcg = 1000 Iu)] Folic Acid 1 mg PO DAILY 03/28/22 09/26/22 History Albuterol Nebulized [Ventolin 2.5 mg INHALATION RT-QID PRN 05/19/22 09/26/22 History Nebulized] Clopidogrel [Plavix] 75 mg PO HS 05/19/22 09/26/22 History metHOTREXate sodium [Methotrexate] 5 mg PO SA 05/19/22 09/26/22 History Albuterol Sulfate [Albuterol 2 puff PO RT-BID 09/26/22 09/26/22 History Sulfate Hfa] Budesonide/Formoterol Fumarate 2 puff INHALATION RT-BID 09/26/22 09/26/22 History [Symbicort 160-4.5 Mcg Inhaler] Fexofenadine/Pseudoephedrine 1 tab PO BID 09/26/22 09/26/22 History [Vikki-D 12 Hour Tablet] Metoprolol Succinate (ER) [Toprol 25 mg PO DAILY 09/26/22 09/26/22 History Xl] inFLIXimab [Remicade] 1 dose IVPB Q49D 09/26/22 09/26/22 History methylPREDNISolone [Medrol Dose See Taper PO DIRECTED 09/26/22 09/26/22 History Pack] Allergies Allergy/AdvReac Type Severity Reaction Status Date / Time capsaicin Allergy Rash/Hives, Verified 09/26/22 10:37 BURNING FEELING tramadol AdvReac Nausea & Verified 09/26/22 10:37 Vomiting Physical Exam Vitals: Vital Signs Temp Pulse Resp BP Pulse Ox 09/26/22 11:00 97.1 F L 80 18 97/68 94 L 09/26/22 10:00 80 20 97/68 95 09/26/22 09:00 85 20 106/73 97 09/26/22 08:38 84 20 105/65 96 09/26/22 08:00 84 18 92/68 96 09/26/22 07:14 98.3 F 81 18 120/74 92 L Intake and Output 09/25/22 09/26/22 09/26/22 22:59 06:59 14:59 Other: Weight 117.934 kg Results CBC & Chem 7: 09/26/22 07:45 09/26/22 07:45 Labs: Abnormal Lab Results - Last 24 Hours (Table) 09/26/22 Range/Units 07:45 Glucose 141 H (74-99) mg/dL Total Protein 6.1 L (6.3-8.2) g/dL
--- NOTE | 2022-09-26 15:34 | P.CONS ---
History of Present Illness - Reason for Consult Consult date: 09/27/22 GI bleed Requesting physician: Molly Gleason - Chief Complaint Rectal bleeding - History of Present Illness A pleasant 62-year-old male who presented to the emergency department with complaints of rectal bleeding 3 this morning. He states he started having bloody bowel movements this morning around 4 AM with some mild cramping associated with the rectal bleeding but no real pain. He reported the bowel movements is jeet blood, bright and then dark red. Denies previous history of a GI bleed. Had recent colonoscopy a year ago with Dr. Rodney which he states was significant for colon polyp status post polypectomy. Has a past medical history including coronary artery disease status post cardiac stenting in May of this year on Plavix and aspirin, COPD, obstructive sleep apnea on CPAP, hypertension, dyslipidemia, GERD, and rheumatoid arthritis. He states he continues to have no abdominal pain, nausea or vomiting. States he had 3 more episodes of bloody archana wel movements while in the emergency room. He was admitted to the hospital. Had a bowel movement this morning which was dark and soft but no jeet blood. Denies any dizziness, shortness of breath, chest pain, abdominal pain, nausea vomiting. Stool occult blood positive. Patient also underwent CT of the abdomen and pelvis with contrast reporting mild scattered colonic diverticulosis though present to a greater extent within the sigmoid colon. No evidence for acute diverticulitis. Hypodensity intraluminal material at the inferior cecum and also outlining a few diverticula along the right side of the colon. Query any recent study or oral contrast was administered. Basilar interstitial fibrosis show some progression from 2016. Underlying basilar pulmonary nodules are unchanged. Admitting hemoglobin 13.9 with a drop today to 10.7 Labs WBC 8.2 hemoglobin 10.7 hematocrit 31 platelet count 236,000 total bilirubin 0.9 AST 18 ALT 21 alkaline phosphatase 78 Review of Systems REVIEW OF SYSTEMS: CARDIOPULMONARY: No chest pain or shortness of breath. Gastrointestinal: No abdominal pain.. No nausea or vomiting. No hematemesis, coffee-ground emesis. Jeet rectal bleeding, dark red. GENITOURINARY: No dysuria or hematuria. MUSCULOSKELETAL: Reports normal range of motion. Joint pain. SKIN: No rashes. No jaundice. ENDOCRINE: No chills, fevers. No excessive weight gain or loss. No polydipsia or polyuria. PSYCHIATRIC: Unremarkable. NEUROLOGY: No change in mental status. Denies dizziness, headache. ENT: Vision unremarkable. CONSTITUTIONAL: No recent weight loss. No fever, chills, night sweats. Past Medical History Past Medical History: COPD, GERD/Reflux, Hypertension, Rheumatoid Arthritis (RA) Additional Past Medical History / Comment(s): Chronic lymphedema, R leg edema, p ast R lower leg cellulitis, venous insufficiency R leg, chronic generalized pain from RA, immunosuppressed, IBS with chronic diarrhea, chronic allergies, cholecystitis/lithiasis with sepsis-had cholecystectomy. History of Any Multi-Drug Resistant Organisms: MRSA Year Discovered:: 11/19/18 MDRO Source:: Left Flank Past Surgical History: Cholecystectomy, Orthopedic Surgery Additional Past Surgical History / Comment(s): carpal tunnel Past Anesthesia/Blood Transfusion Reactions: No Reported Reaction Date of Last Stent Placement:: 04/09/2022 Past Psychological History: Depression Smoking Status: Former smoker Past Alcohol Use History: Daily Past Drug Use History: None Reported - Past Family History Mother Family Medical History: COPD Additional Family Medical History / Comment(s): Mother was a smoker. Father Family Medical History: COPD Additional Family Medical History / Comment(s): Father was a smoker. Son(s) Family Medical History: Cancer Additional Family Medical History / Comment(s): Brain CA Medications and Allergies Home Medications Medication Instructions Recorded Confirmed Type Loperamide HCl [Imodium A-D] 2 mg PO HS 09/07/15 09/26/22 History Sildenafil Citrate [Viagra] 100 mg PO DAILY PRN 11/07/17 09/26/22 History Potassium 99 mg PO DAILY 03/02/19 09/26/22 History Valsartan [Diovan] 40 mg PO HS 03/02/19 09/26/22 History Atorvastatin [Lipitor] 80 mg PO HS #90 tab 03/10/19 09/26/22 Rx Calcium/Magnesium/Zinc 1 tab PO BID 07/05/20 09/26/22 History [Hldzcaz-Lphlykfcy-Sxff Tablet] Pantoprazole Sodium [Protonix] 40 mg PO BID 07/05/20 09/26/22 History Cholecalciferol [Vitamin D3 (25 25 mcg PO BID 03/28/22 09/26/22 History Mcg = 1000 Iu)] Folic Acid 1 mg PO DAILY 03/28/22 09/26/22 History Albuterol Nebulized [Ventolin 2.5 mg INHALATION RT-QID PRN 05/19/22 09/26/22 History Nebulized] Clopidogrel [Plavix] 75 mg PO HS 05/19/22 09/26/22 History metHOTREXate sodium [Methotrexate] 5 mg PO SA 05/19/22 09/26/22 History Albuterol Sulfate [Albuterol 2 puff PO RT-BID 09/26/22 09/26/22 History Sulfate Hfa] Budesonide/Formoterol Fumarate 2 puff INHALATION RT-BID 09/26/22 09/26/22 History [Symbicort 160-4.5 Mcg Inhaler] Fexofenadine/Pseudoephedrine 1 tab PO BID 09/26/22 09/26/22 History [Vikki-D 12 Hour Tablet] Metoprolol Succinate (ER) [Toprol 25 mg PO DAILY 09/26/22 09/26/22 History Xl] inFLIXimab [Remicade] 1 dose IVPB Q49D 09/26/22 09/26/22 History methylPREDNISolone [Medrol Dose See Taper PO DIRECTED 09/26/22 09/26/22 History Pack] Allergies Allergy/AdvReac Type Severity Reaction Status Date / Time capsaicin Allergy Rash/Hives, Verified 09/26/22 10:37 BURNING FEELING tramadol AdvReac Nausea & Verified 09/26/22 10:37 Vomiting Physical Exam Vitals: Vital Signs Temp Pulse Resp BP Pulse Ox 09/26/22 12:15 97.7 F 78 20 91/68 95 09/26/22 11:00 97.1 F L 80 18 97/68 94 L 09/26/22 10:00 80 20 97/68 95 09/26/22 09:00 85 20 106/73 97 09/26/22 08:38 84 20 105/65 96 09/26/22 08:00 84 18 92/68 96 09/26/22 07:14 98.3 F 81 18 120/74 92 L Intake and Output 09/25/22 09/26/22 09/26/22 22:59 06:59 14:59 Other: Weight 117.934 kg General appearance: The patient is alert, oriented, appears in no acute distress. HET: Head is normocephalic and atraumatic. Conjunctiva pink. Sclera anicteric. Neck: Supple without lymphadenopathy. Trachea midline. Heart: S1 S2. Regular rate and rhythm. Lungs: Clear to auscultation. Abdomen: Soft, obese, nontender, nondistended with bowel sounds. No guarding or rigidity. Skin: No rashes. No jaundice. Extremities: Normal skin color and turgor. No pedal edema. Neurological: No focal deficits. Alert and oriented x3. Results CBC & Chem 7: 09/27/22 05:44 09/26/22 07:45 Labs: Abnormal Lab Results - Last 24 Hours (Table) 09/26/22 Range/Units 07:45 Glucose 141 H (74-99) mg/dL Total Protein 6.1 L (6.3-8.2) g/dL Assessment and Plan (1) Hematochezia Narrative/Plan: 62-year-old male presenting with acute lower GI bleed. Reporting jeet blood per rectum [address] abdomen and pelvis shows scattered colonic diverticulosis though present to a greater extent in the sigmoid colon without diverticulitis. Patient also on Plavix and aspirin for recent cardiac stent in May. Patient did have a colonoscopy [address] Rodney and [facility], states only significant for colon polyps status post polypectomy. He was unsure if any diverticulosis. Likely dealing with a diverticular bleed. We'll continue with symptomatic and supportive care. Hold Plavix, can continue aspirin. No plans on endoscopic evaluation at this time. Current Visit: Yes Status: Acute Code(s): K92.1 - MELENA SNOMED Code(s): 777358561 Plan: 1. Continue symptomatic and supportive care 2. CBC daily. Transfuse for hemoglobin less than 7 3. Patient may have clear liquid diet 4. Hold Plavix, may continue aspirin 5. No plans at this time for endoscopic evaluation. Likely diverticular bleed. 6. If no further bleeding through the night will advance diet in the morning and patient can likely be discharged Thank you for this consultation, we will continue to follow. Dr. Lily Parker I agree with the dictator's note, documented as a scribe by Jenn Stern.
[2022-09-26 18:02] LABS: HCT 34.2 % (39.0-53.0); HGB 11.4 gm/dL (13.0-17.5); MCH 31.9 pg (25.0-35.0); MCHC 33.2 g/dL (31.0-37.0); MCV 96.1 fL (80.0-100.0); Mean Platelet Volume 6.8; Platelet Count 275 k/uL (150-450); RBC 3.56 m/uL (4.30-5.90); RDW 12.7 % (11.5-15.5); WBC 6.1 k/uL (3.8-10.6)
[2022-09-26] MEDS: SYMBICORT 160-4.5 MCG INHALER INHALATION SCH (20:35)
[2022-09-26] MEDS: ALBUTEROL NEBULIZED 2.5 MG/3 ML INHALATION SCH (20:35)
[2022-09-26] MEDS: PANTOPRAZOLE 40 MG/10 ML VIAL IVP SCH (20:59)
[2022-09-26] MEDS: ATORVASTATIN 80 MG TAB PO SCH (20:59)
[2022-09-26] MEDS: LORATADINE-PSEUDOEPH 5-120 MG 1 EACH TAB.ER.12H PO SCH (20:59)
[2022-09-26] MEDS: VALSARTAN 40 MG TAB PO SCH (20:59)
[2022-09-26] MEDS: CHOLECALCIFEROL 25 MCG (1000 IU) TABLET PO SCH (20:59)
[2022-09-26] MEDS ORDERED: NON FORMULARY DRUG (Calcium/Magnesium/Zinc [Calcium-Magnesium-Zinc Tablet] 1 EACH Tablet) PO SCH (21:00)
[2022-09-27] MEDS: ALBUTEROL NEBULIZED 2.5 MG/3 ML INHALATION SCH ×2 (07:30→20:05)
[2022-09-27] MEDS: SYMBICORT 160-4.5 MCG INHALER INHALATION SCH ×2 (07:30→20:05)
[2022-09-27] MEDS: PANTOPRAZOLE 40 MG/10 ML VIAL IVP SCH ×2 (08:03→20:21)
[2022-09-27 09:02] LABS: HCT 31.5 % (39.6-50.0); HGB 10.7 d/dL (12.0-15.0); MCV 97.2 FL (80.0-97.0); Mean Platelet Volume 8.7 FL (9.5-12.2); NRBC Per 100 WBC 0 X 10*3/uL (0.00-0.01); Platelet Count 236 X 10*3/uL (140-440); RBC 3.24 X 10*6/uL (4.40-5.60); RDW 12.4 % (11.5-14.5); WBC 8.21 X 10*3/uL (4.50-10.00)
[2022-09-27] MEDS: THIAMINE 100 MG TAB PO SCH (10:00)
[2022-09-27] MEDS: CHOLECALCIFEROL 25 MCG (1000 IU) TABLET PO SCH ×2 (10:00→20:21)
[2022-09-27] MEDS: FOLIC ACID 1 MG TAB PO SCH (10:00)
[2022-09-27] MEDS: ASPIRIN 81 MG PO SCH (10:00)
[2022-09-27] MEDS: LORATADINE-PSEUDOEPH 5-120 MG 1 EACH TAB.ER.12H PO SCH ×2 (10:00→20:21)
[2022-09-27] MEDS: METOPROLOL SUCCINATE (ER) 25 MG TAB.ER.24H PO SCH ×2 (10:00→10:35)
--- NOTE | 2022-09-27 11:43 | P.PN ---
Subjective Progress Note Date: 09/27/22 Hospital Course: 62-year-old male with history of COPD, VIANNEY on CPAP, CAD status post stent, hypertension, dyslipidemia, GERD, rheumatoid arthritis presenting with bright red blood per rectum. In the ED, temperature was 98.3, pulse 81, respiratory rate 18, blood pressure 120/74, saturating at 92% on room air. Hemoglobin 13.9, BUN 14, creatinine 0.77, stool occult blood positive, respiratory viral panel negative. Patient had CT abdomen and pelvis showed mild scattered colonic diverticulosis mitted for observation for acute lower GI bleed with GI consult. Hemoglobin continues to down trend. Patient has been restarted on aspirin. Plavix on hold. Subjective: Patient seen and examined at bedside. Continues to have bloody bowel movements. Denies any other complaints. Pertinent positives and negatives as discussed above, a complete review of systems was performed and all other systems are negative. Vitals Signs Reviewed. General: nontoxic, no distress, appears at stated age, obese Derm: warm, dry Head: atraumatic, normocephalic, symmetric Eyes: EOMI, no lid lag, anicteric sclera Mouth: no lip lesion, mucus membranes moist Cardiovascular: S1S2 reg, no murmur Lungs: CTA bilateral, no rhonchi, no rales , no accessory muscle use Abdominal: soft, nontender to palpation, no guarding, no appreciable organomegaly Ext: no gross muscle atrophy, no edema, no contractures Neuro: CN II-XI grossly intact, no focal neuro deficits Psych: Alert, oriented, appropriate affect Data Reviewed Today: Pertinent Labs: Hemoglobin 10.7 Imaging: No new imaging Assessment and Plan: Active: Acute lower GI bleed likely diverticular bleed History of GERD History of CAD status post with recent stent, on dual antiplatelet Daily alcohol use -Hemoglobin continues to down trend -Hemodynamically stable -Continue IV Protonix 40 mg twice a day -GI following, patient may need endoscopy -Aspirin was restarted, Plavix on hold -Continue thiamine Chronic: COPD Dyslipidemia Hypertension Rheumatoid arthritis VIANNEY on CPAP DVT ppx: SCDs Code status: Full code Anticipated discharge place: Pending clinical course Anticipated discharge time: Pending clinical course Objective - Vital Signs Vital signs: Vital Signs Temp 97.7 F 09/27/22 07:20 Pulse 72 09/27/22 07:43 Resp 14 09/27/22 07:20 BP 95/60 07/20/23 07:20 Pulse Ox 95 09/27/22 07:20 FiO2 Intake & Output 09/26/22 09/27/22 09/27/22 18:59 06:59 18:59 Intake Total 400 Balance 400 Weight 117.934 kg Intake: Oral 400 Other: # Voids 1 2 - Labs CBC & Chem 7: 09/27/22 05:44 09/26/22 07:45 Labs: Abnormal Lab Results - Last 24 Hours (Table) 09/26/22 09/27/22 Range/Units 17:41 05:44 RBC 3.56 L 3.24 L (4.30-5.90) m/uL Hgb 11.4 L 10.7 L (13.0-17.5) gm/dL Hct 34.2 L 31.5 L (39.0-53.0) % MCV 97.2 H (80.0-97.0) FL MCH 33.0 H (27.0-32.0) pg MPV 8.7 L (9.5-12.2) FL
[2022-09-27 15:55] LABS: INR 1.06 sec (0.93-1.11); Prothrombin Time 11.9 sec (9.9-11.9)
[2022-09-27] MEDS: VALSARTAN 40 MG TAB PO SCH (20:21)
[2022-09-27] MEDS: ATORVASTATIN 80 MG TAB PO SCH (20:21)
[2022-09-28] MEDS: ALBUTEROL NEBULIZED 2.5 MG/3 ML INHALATION SCH (08:18)
[2022-09-28] MEDS: SYMBICORT 160-4.5 MCG INHALER INHALATION SCH (08:18)
[2022-09-28] MEDS: PANTOPRAZOLE 40 MG/10 ML VIAL IVP SCH (08:52)
--- NOTE | 2022-09-28 09:21 | P.PN ---
Subjective Progress Note Date: 09/28/22 Principal diagnosis: Rectal bleeding A pleasant 62-year-old male who presented to the emergency department with complaints of rectal bleeding 3 this morning. He states he started having bloody bowel movements this morning around 4 AM with some mild cramping associated with the rectal bleeding but no real pain. He reported the bowel movements is jeet blood, bright and then dark red. Denies previous history of a GI bleed. Had recent colonoscopy a year ago with Dr. Rodney which he states was significant for colon polyp status post polypectomy. Has a past medical history including coronary artery disease status post cardiac stenting in May of this year on Plavix and aspirin, COPD, obstructive sleep apnea on CPAP, hypertension, dyslipidemia, GERD, and rheumatoid arthritis. He states he continues to have no abdominal pain, nausea or vomiting. States he had 3 more episodes of bloody bowel movements while in the emergency room. He was admitted to the hospital. Had a bowel movement this morning which was dark and soft but no jeet blood. Denies any dizziness, shortness of breath, chest pain, abdominal pain, nausea vomiting. Stool occult blood positive. Patient also underwent CT of the abdomen and pelvis with contrast reporting mild scattered colonic diverticulosis though present to a greater extent within the sigmoid colon. No evidence for acute diverticulitis. Hypodensity intraluminal material at the inferior cecum and also outlining a few diverticula along the right side of the colon. Query any recent study or oral contrast was administered. Basilar interstitial fibrosis show some progression from 2016. Underlying basilar pulmonary nodules are unchanged. Admitting hemoglobin 13.9 with a drop today to 10.7 09/28/2022 Patient seen and examined today as a follow-up. He denies any further bleeding since day of admission. Yesterday he did have a bowel movement in the morning that was dark and loose. Today he states he just passing gas but there was no blood. He denies any abdominal pain, nausea or vomiting. He states he is feeling very well. He has been tolerating clear liquid diet. Today's labs are currently pending. Objective - Vital Signs Vital signs: Vital Signs Temp 97.9 F 09/28/22 01:09 Pulse 72 09/28/22 08:33 Resp 18 09/28/22 01:09 BP 106/67 09/28/22 01:09 Pulse Ox 91 L 09/28/22 01:09 FiO2 Intake & Output 09/27/22 09/28/22 09/28/22 18:59 06:59 18:59 Intake Total 780 Balance 780 Intake: Oral 780 Other: Voiding Method Toilet Toilet Toilet # Voids 1 2 # Bowel Movements 1 - Exam General appearance: The patient is alert, oriented, appears in no acute distress. HET: Head is normocephalic and atraumatic. Conjunctiva pink. Sclera anicteric. Neck: Supple without lymphadenopathy. Abdomen: Soft, nontender, nondistended with bowel sounds. No guarding or rigidity. Extremities: Normal skin color and turgor. No pedal edema Skin: No rashes, no jaundice Neurological: No focal deficits. Alert and oriented. - Labs CBC & Chem 7: 09/27/22 05:44 09/26/22 07:45 Assessment and Plan (1) Hematochezia Narrative/Plan: 62-year-old male presenting with acute lower GI bleed. Reporting jeet blood per rectum [address] abdomen and pelvis shows scattered colonic diverticulosis though present to a greater extent in the sigmoid colon without diverticulitis. Patient also on Plavix and aspirin for recent cardiac stent in May. Patient did have a colonoscopy [address] Rodney and [facility], states only significant for colon polyps status post polypectomy. He was unsure if any diverticulosis. Likely dealing with a diverticular bleed. We'll continue with symptomatic and supportive care. Hold Plavix, can continue aspirin. No plans on endoscopic evaluation at this time. Patient with no further bleeding since admission. Likely related to diverticular bleed. No plans on endoscopic evaluation. Advance diet, and if his hemoglobin stable patient may be discharged home. Current Visit: Yes Status: Acute Code(s): K92.1 - MELENA SNOMED Code(s): 231592927 Plan: 1. Continue symptomatic and supportive care 2. CBC daily. Transfuse for hemoglobin less than 7 3. Advanced diet 4. May resume Plavix 5. No plans at this time for endoscopic evaluation. Patient had recent colonoscopy one year ago. Likely diverticular bleed. 6. If CBC stable, patient may be discharged home. Thank you for allowing us to participate in the care of the patient, the GI service will sign off, gastroenterology will not be available at the hospital this weekend and through next week. If further evaluation by gastroenterology is required the patient will need transfer as per the primary team's discretion. Dr. Lily Parker I agree with the dictator's note, documented as a scribe by Jenn Stern.
[2022-09-28 09:45] VITALS: BP 94/63; RESP 16; TEMP 98
[2022-09-28] MEDS: LORATADINE-PSEUDOEPH 5-120 MG 1 EACH TAB.ER.12H PO SCH (09:56)
[2022-09-28] MEDS: CHOLECALCIFEROL 25 MCG (1000 IU) TABLET PO SCH (09:56)
[2022-09-28] MEDS: ASPIRIN 81 MG PO SCH (09:56)
[2022-09-28] MEDS: FOLIC ACID 1 MG TAB PO SCH (09:56)
[2022-09-28] MEDS: THIAMINE 100 MG TAB PO SCH (09:56)
[2022-09-28] MEDS: METOPROLOL SUCCINATE (ER) 25 MG TAB.ER.24H PO SCH ×2 (09:56→11:48)
[2022-09-28 10:27] VITALS: PULSE 92
[2022-09-28 11:12] LABS: Basophils # (A) 0.05 X 10*3/uL (0.00-0.10); Basophils % (A) 0.6 %; Eosinophils # (A) 0.15 X 10*3/uL (0.04-0.35); Eosinophils % (A) 1.9 %; HCT 32.8 % (39.6-50.0); HGB 10.8 d/dL (12.0-15.0); Lymphocytes # (A) 1.42 X 10*3/uL (0.90-5.00); Lymphocytes % (A) 18.3 %; MCH 32.2 pg (27.0-32.0); MCHC 32.9 d/dL (32.0-37.0); MCV 97.9 FL (80.0-97.0); Monocytes # (A) 0.62 X 10*3/uL (0.20-1.00); NRBC Per 100 WBC 0 X 10*3/uL (0.00-0.01); Neutrophils # (A) 5.49 X 10*3/uL (1.80-7.70); Neutrophils % (A) 70.6 %; Platelet Count 272 X 10*3/uL (140-440); RBC 3.35 X 10*6/uL (4.40-5.60); RDW 12.6 % (11.5-14.5); WBC 7.78 X 10*3/uL (4.50-10.00)
[2022-09-28 11:24] LABS: BUN/Creat Ratio 10.38 Ratio (12.00-20.00); Blood Urea Nitrogen 8.3 mg/dL (9.0-27.0); Calcium 9.1 mg/dL (8.7-10.3); Carbon Dioxide 23.6 mmol/L (21.6-31.8); Chloride 103 mmol/L (96-109); Glucose 113 mg/dL (70-110); Potassium 4.2 mmol/L (3.5-5.5); Sodium 138 mmol/L (135-145)
--- NOTE | 2022-09-28 11:42 | P.DS ---
Providers Date of admission: 09/26/22 10:08 Expected date of discharge: 09/28/22 Attending physician: Guanakito Eubanks MD Consults: 09/26/22 10:08 Consult Physician Urgent Consulting Provider: Nichole Parker Consult Reason/Comments: GI bleed Do you want consulting provider notified?: Yes [facility]: Discharge Diagnosis: Acute lower GI bleed likely diverticular bleed Acute blood loss anemia, stable History of GERD History of CAD status post with recent stent, on dual antiplatelet Daily alcohol use Hospital Course: 62-year-old male with history of COPD, VIANNEY on CPAP, CAD status post stent, hypertension, dyslipidemia, GERD, rheumatoid arthritis presenting with bright red blood per rectum. In the ED, temperature was 98.3, pulse 81, respiratory rate 18, blood pressure 120/74, saturating at 92% on room air. Hemoglobin 13.9, BUN 14, creatinine 0.77, stool occult blood positive, respiratory viral panel negative. Patient had CT abdomen and pelvis showed mild scattered colonic diverticulosis mitted for observation for acute lower GI bleed with GI consult. Hemoglobin slowly down trended. Likely diverticular bleed. No interventions performed during this admission. Hemoglobin is now stable. Patient has been started on aspirin and Plavix again. Patient seen and examined at bedside. Vital signs reviewed and stable. General: nontoxic, no distress, appears at stated age Derm: warm, dry Head: atraumatic, normocephalic, symmetric Eyes: EOMI, no lid lag, anicteric sclera Mouth: no lip lesion, mucus membranes moist Cardiovascular: S1S2 reg, no murmur Lungs: CTA bilateral, no rhonchi, no rales , no accessory muscle use Abdominal: soft, nontender to palpation, no guarding, no appreciable organomegaly Ext: no gross muscle atrophy, no edema, no contractures Neuro: CN II-XI grossly intact, no focal neuro deficits Psych: Alert, oriented, appropriate affect A total of 36 minutes of time were spent preparing this complex discharge summary. Patient was discharged on 09/28/22 at 11:40. Patient Condition at Discharge: Stable Plan - Discharge Summary New Discharge Prescriptions: New Thiamine [Vitamin B-1] 100 mg PO DAILY #90 tab Aspirin 81 mg PO DAILY tab Continue Loperamide HCl [Imodium A-D] 2 mg PO HS Sildenafil Citrate [Viagra] 100 mg PO DAILY PRN PRN Reason: ED Valsartan [Diovan] 40 mg PO HS Potassium 99 mg PO DAILY Atorvastatin [Lipitor] 80 mg PO HS #90 tab Cholecalciferol [Vitamin D3 (25 Mcg = 1000 Iu)] 25 mcg PO BID Folic Acid 1 mg PO DAILY Clopidogrel [Plavix] 75 mg PO HS Albuterol Nebulized [Ventolin Nebulized] 2.5 mg INHALATION RT-QID PRN PRN Reason: Shortness Of Breath Budesonide/Formoterol Fumarate [Symbicort 160-4.5 Mcg Inhaler] 2 puff INHALATION RT-BID Fexofenadine/Pseudoephedrine [Vikki-D 12 Hour Tablet] 1 tab PO BID inFLIXimab [Remicade] 1 dose IVPB Q49D Metoprolol Succinate (ER) [Toprol XL] 25 mg PO DAILY Calcium/Magnesium/Zinc [Mcezmur-Krekcryqm-Qokm Tablet] 1 tab PO BID Pantoprazole Sodium [Protonix] 40 mg PO BID metHOTREXate sodium [Methotrexate] 5 mg PO SA Albuterol Sulfate [Albuterol Sulfate Hfa] 2 puff PO RT-BID methylPREDNISolone [Medrol Dose Pack] See Taper PO DIRECTED Discharge Medication List Loperamide HCl [Imodium A-D] 2 mg PO HS 09/07/15 [History] Sildenafil Citrate [Viagra] 100 mg PO DAILY PRN 11/07/17 [History] Potassium 99 mg PO DAILY 03/02/19 [History] Valsartan [Diovan] 40 mg PO HS 03/02/19 [History] Atorvastatin [Lipitor] 80 mg PO HS #90 tab 03/10/19 [Rx] Calcium/Magnesium/Zinc [Cdrkhzu-Qeggjpdhd-Diav Tablet] 1 tab PO BID 07/05/20 [History] Pantoprazole Sodium [Protonix] 40 mg PO BID 07/05/20 [History] Cholecalciferol [Vitamin D3 (25 Mcg = 1000 Iu)] 25 mcg PO BID 03/28/22 [History] Folic Acid 1 mg PO DAILY 03/28/22 [History] Albuterol Nebulized [Ventolin Nebulized] 2.5 mg INHALATION RT-QID PRN 05/19/22 [History] Clopidogrel [Plavix] 75 mg PO HS 05/19/22 [History] metHOTREXate sodium [Methotrexate] 5 mg PO SA 05/19/22 [History] Albuterol Sulfate [Albuterol Sulfate Hfa] 2 puff PO RT-BID 09/26/22 [History] Budesonide/Formoterol Fumarate [Symbicort 160-4.5 Mcg Inhaler] 2 puff INHALATION RT-BID 09/26/22 [History] Fexofenadine/Pseudoephedrine [Vikki-D 12 Hour Tablet] 1 tab PO BID 09/26/22 [History] Metoprolol Succinate (ER) [Toprol XL] 25 mg PO DAILY 09/26/22 [History] inFLIXimab [Remicade] 1 dose IVPB Q49D 09/26/22 [History] methylPREDNISolone [Medrol Dose Pack] See Taper PO DIRECTED 09/26/22 [History] Aspirin 81 mg PO DAILY tab 09/28/22 [Rx] Thiamine [Vitamin B-1] 100 mg PO DAILY #90 tab 09/28/22 [Rx] Follow up Appointment(s)/Referral(s): Shawanda Pruett MD [Primary Care Provider] - 1-2 days Patient Instructions/Handouts: Diverticulosis (DC), Rectal Bleeding (DC) Activity/Diet/Wound Care/Special Instructions: Please see your PCP. If worsening rectal bleeding, please return to the ER. Discharge Disposition: HOME SELF-CARE
[2022-09-29] MEDS ORDERED: metHOTREXate sodium 2.5 MG TAB PO SCH (09:00)
== END 2022-09-28 13:00 | disposition home or self-care (01) ==
LOC: EC 07:10 → 6NMEDSUR 10:08 → 5NMEDONC 13:17
PROVIDERS: ADMIT Student in an Organized Health Care Education/Training Program; ATTEND Student in an Organized Health Care Education/Training Program
DX: K62.5 Hemorrhage of anus and rectum (principal); D62 Acute posthemorrhagic anemia; K21.9 Gastro-esophageal reflux disease without esophagitis; I25.10 Atherosclerotic heart disease of native coronary artery without angina pectoris; J44.9 Chronic obstructive pulmonary disease, unspecified; I10 Essential (primary) hypertension; G47.33 Obstructive sleep apnea (adult) (pediatric); E78.5 Hyperlipidemia, unspecified; M06.9 Rheumatoid arthritis, unspecified; F32.A Depression, unspecified; Z90.49 Acquired absence of other specified parts of digestive tract; I89.0 Lymphedema, not elsewhere classified; K58.0 Irritable bowel syndrome with diarrhea; Z79.899 Other long term (current) drug therapy; Z88.8 Allergy status to other drugs, medicaments and biological substances; Z16.24 Resistance to multiple antibiotics; Z86.14 Personal history of Methicillin resistant Staphylococcus aureus infection; Z20.822 Contact with and (suspected) exposure to COVID-19; Z87.891 Personal history of nicotine dependence; Z95.5 Presence of coronary angioplasty implant and graft; Z86.010 Personal history of colon polyps; Z71.9 Counseling, unspecified; Z82.5 Family history of asthma and other chronic lower respiratory diseases; Z80.8 Family history of malignant neoplasm of other organs or systems; Z81.2 Family history of tobacco abuse and dependence
CPT/HCPCS: 96376 ×3; 96361; 96374; 96375; 99285; 36415; 94640 ×6; 93005; 83880; 80053; 80048; 83605; 84484; 85025 ×2; 85027 ×2; 85384; 85610; 85730; 82272; 87636; 71046; 74177; G0378 ×4; J2405; C9113 ×3; Q9967

== ENCOUNTER → 2022-10-09 | Outpatient (CLI) | payer OTHER ==
[2022-10-09 10:41] LABS: Anisocytosis Slight; Basophils % (A) 0 %; Eosinophils # (A) 0.2 k/uL (0-0.7); Eosinophils % (A) 2 %; HCT 25.2 % (39.0-53.0); Hypochromasia Moderate; Lymphocytes # (A) 1.1 k/uL (1.0-4.8); Lymphocytes % (A) 15 %; MCH 34.4 pg (25.0-35.0); MCHC 32.2 g/dL (31.0-37.0); Macrocytosis Marked; Mean Platelet Volume 7.2; Monocytes # (A) 0.4 k/uL (0-1.0); Monocytes % (A) 5 %; Neutrophils # (A) 5.6 k/uL (1.3-7.7); Neutrophils % (A) 76 %; Platelet Count 297 k/uL (150-450); Poikilocytosis Slight; RBC 2.36 m/uL (4.30-5.90); RDW 19.2 % (11.5-15.5); WBC 7.3 k/uL (3.8-10.6)
[2022-10-09 10:50] LABS: HGB 8.1 gm/dL (13.0-17.5); MCV 106.7 fL (80.0-100.0)
== END | disposition home or self-care (01) ==
LOC: LABWHC1 09:29
PROVIDERS: ATTEND Internal Medicine Gastroenterology
DX: K92.1 Melena (principal)
CPT/HCPCS: 36415; 85025

== ENCOUNTER → 2022-10-18 | Outpatient (CLI) | payer OTHER ==
[2022-10-18 16:58] LABS: HCT 33.1 % (39.6-50.0); MCH 33.8 pg (27.0-32.0); MCHC 30.2 d/dL (32.0-37.0); MCV 111.8 FL (80.0-97.0); Mean Platelet Volume 8.9 FL (9.5-12.2); NRBC Per 100 WBC 0.02 X 10*3/uL (0.00-0.01); Platelet Count 274 X 10*3/uL (140-440); RBC 2.96 X 10*6/uL (4.40-5.60); RDW 16.9 % (11.5-14.5); WBC 6.17 X 10*3/uL (4.50-10.00)
== END | disposition home or self-care (01) ==
LOC: LABWHC1 09:55
PROVIDERS: ATTEND Family Medicine
DX: K92.1 Melena (principal)
CPT/HCPCS: 36415; 85027

== ENCOUNTER → 2023-02-25 | Outpatient (CLI) | payer OTHER ==
[2023-02-25 10:53] LABS: Basophils # (A) 0.03 X 10*3/uL (0.00-0.10); Basophils % (A) 0.3 %; Eosinophils # (A) 0.07 X 10*3/uL (0.04-0.35); Eosinophils % (A) 0.7 %; HCT 43.2 % (39.6-50.0); HGB 14.5 g/dL (13.0-17.0); Lymphocytes # (A) 1.22 X 10*3/uL (0.90-5.00); Lymphocytes % (A) 12.9 %; MCH 32.2 pg (27.0-32.0); MCHC 33.6 g/dL (32.0-37.0); MCV 95.8 FL (80.0-97.0); Mean Platelet Volume 9.6 FL (9.5-12.2); Monocytes # (A) 0.58 X 10*3/uL (0.20-1.00); Monocytes % (A) 6.1 %; NRBC Per 100 WBC 0 X 10*3/uL (0.00-0.01); Neutrophils # (A) 7.52 X 10*3/uL (1.80-7.70); Neutrophils % (A) 79.5 %; Platelet Count 228 X 10*3/uL (140-440); RBC 4.51 X 10*6/uL (4.40-5.60); RDW 14.6 % (11.5-14.5); WBC 9.47 X 10*3/uL (4.50-10.00)
[2023-02-25 11:08] LABS: Chol/HDL Ratio 2.02 Ratio; LDL Cholesterol,Calculated 50.2 mg/dL (0.0-131.0); Prostate Specific Antigen 0.31 ng/mL (0.000-4.500)
== END | disposition home or self-care (01) ==
LOC: LABWHC1 07:53
PROVIDERS: ATTEND Family Medicine
DX: Z12.5 Encounter for screening for malignant neoplasm of prostate (principal); I25.10 Atherosclerotic heart disease of native coronary artery without angina pectoris
CPT/HCPCS: 36415; 80061; 84153; 85025

== ENCOUNTER → 2023-06-06 | Outpatient (CLI) | payer OTHER ==
[2023-06-06 16:06] VITALS: BP 121/77; PULSE 67; RESP 16; TEMP 97.9
--- NOTE | 2023-06-06 16:42 | P.PN ---
Subjective DATE: 06/06/2023 FOLLOW UP VISIT. Patient with obstructive sleep apnea hypopnea syndrome return to sleep center for follow-up visit. Information from previous visit have been reviewed. Patient is using PAP equipment every night for the whole night, getting PAP supplies in time. The patient does not have significant problems with the mask, PAP unit and humidification. [place] sleepiness scale is increased to 14. I checked information from PAP unit. BPAP unit pressure 13/9 cm H2O. Usage is 100% for more then 4 hours, average 7.2 hours per night. Leak is 12 l/m, which is in acceptable range. Apnea Hypopnea Index is 1.0, which is normal. MEDICATIONS:1. Toprol 25 mg once a day 2. Aspirin 81 mg once a day 3. Nexium 40 mg once a day 4. Methotrexate 5 mg once a day 5. Lipitor 80 mg once a day 6. Valsartan 40 mg once a day During physical exam: GENERAL: A pleasant patient without any distress. VITAL SIGNS: Please see below, BMI 39.2. HEENT: PERRLA, EOMI.low position of soft palate, Mallapati 4 . NECK: Supple. No JVD. LUNGS: Clear to percussion and to auscultation. Good air exchange. No wheezing or rhonchi. HEART: S1, S2 regular. ABDOMEN: Soft and nontender. Slightly obese EXTREMITIES: No clubbing or cyanosis. ANCIENT ART CURATOR: Awake, alert, and oriented x3. No focal deficit. Impressions: 1. Obstructive sleep apnea-hypopnea syndrome. Patient demonstrated great compli ance with treatment, benefiting from treatment. 2. Obesity, BMI 39.2, patient increased his weight and around 5 pounds comparing with the previous visit. 3. Hypertension. 4. Rheumatoid arthritis. 5. History of COPD. 6. History of low testosterone level. 7. Chronic back pain. 8. Chronic sinusitis. 9. Hyperlipidemia. 10. Irritable bowel syndrome. 11. Coronary artery disease, status post stent insertion. 12. Status post left knee arthroscopic surgery for torn meniscus in June 2020. Plan: 1. Continue using PAP equipment every night for the whole night. 2. To change air filter at least 1-2 times per month. 3. PAP unit should stay lower then position of the head. 4. Advised patient to remove all remaining water from humidifier canister daily and make it dry after each usage. Refill canister with fresh distilled water before each usage. 5. Sleep hygiene with regular time in bed for at least 8 hours. 6. Precautions related to driving. No driving if feel any sleepiness. 7. I will maintain prescription for PAP supplies including mask, tube, filters. 8. Follow up visit in 6 months or earlier if patient has any problems. 9. Watching and losing weight. Thank you very much for allowing me to participate in the management of your patient. Gurmeet Conde MD, PhD, FAASM. Diplomat of [employer], Sleep Medicine Board by [employer] [facility] Objective - Vital Signs Vital signs: Vital Signs Temp 97.9 F 06/06/23 15:48 Pulse 67 06/06/23 15:48 Resp 16 06/06/23 15:48 BP 121/77 06/06/23 15:48 Pulse Ox 95 06/06/23 15:48 FiO2 Intake & Output 06/05/23 06/06/23 06/06/23 18:59 06:59 18:59 Weight 122.47 kg
== END ==
LOC: 3 N SLEEP 15:01
PROVIDERS: ATTEND Internal Medicine
DX: G47.33 Obstructive sleep apnea (adult) (pediatric) (principal); E66.9 Obesity, unspecified; I10 Essential (primary) hypertension; M06.9 Rheumatoid arthritis, unspecified; G89.29 Other chronic pain; E78.5 Hyperlipidemia, unspecified; K58.9 Irritable bowel syndrome, unspecified; I25.10 Atherosclerotic heart disease of native coronary artery without angina pectoris; J32.9 Chronic sinusitis, unspecified; Z87.09 Personal history of other diseases of the respiratory system; Z86.39 Personal history of other endocrine, nutritional and metabolic disease; Z95.5 Presence of coronary angioplasty implant and graft; Z68.39 Body mass index [BMI] 39.0-39.9, adult; Z79.899 Other long term (current) drug therapy; Z99.89 Dependence on other enabling machines and devices; Z88.5 Allergy status to narcotic agent; Z91.018 Allergy to other foods; Z79.02 Long term (current) use of antithrombotics/antiplatelets; Z87.891 Personal history of nicotine dependence
CPT/HCPCS: 99212

== ENCOUNTER → 2023-10-29 | Outpatient (CLI) | payer OTHER ==
--- NOTE | 2023-11-19 14:08 | CT ---
Patient: Mina Campuzano Ordering Physician: Unknown, Unknown ID: [id number] Phone, Pager: Phone: N/A Pager: N/A : 06/28/1969 Age/Gender: 54Y, M Primary Location: N/A Procedure: CTA UPPER EXTREMIT Y Study Date: 10/29/2023 6:39:00 PM EXAMINATION TYPE: CT angio left upper extremity CT DLP: 440 mGycm, Automated exposure control for dose reduction was used. DATE OF EXAM: 10/29/2023 7:36 PM COMPARISON: Contralateral side same day. CLINICAL INDICATION: Ischemia of the fingers TECHNIQUE: Axial images were obtained of the CT angio left upper extremity, Additional coronal and sa gittal reformatted images and soft tissue and bone window were obtained for review. Contrast used: 100cc Isovue-370 Oral contrast used: (None if empty) FINDINGS: Severe atherosclerosis with calcifications circumferentially around the majority of the small vessels of the hand, within the limitations of the exam no evidence or vascular occlusion. The subclavian, a xillary, brachial arteries are patent Limited evaluation of the radial and ulnar arteries and vessels of the hand due to severe atherosclerosis with circumferential calcifications. There is no evidence of fracture, subluxation, or dislocation. No significant soft tissue swelling or joint effusion is i dentified. No focal muscular atrophy or edema is identified. No radiopaque foreign body identified. Atherosclerosis of the carotid bifurcations without significant stenosis. No acute intrathoracic proc ess. Aorta and its major branches are patent. There is a 4 vessel aortic arch. 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 Consider [employer] angiography for further workup. No evidence for vascular occlusion.
== END | disposition home or self-care (01) ==
LOC: RADCTMAIN 07:50
PROVIDERS: ATTEND Internal Medicine
DX: R91.8 Other nonspecific abnormal finding of lung field (principal); I70.208 Unspecified atherosclerosis of native arteries of extremities, other extremity
CPT/HCPCS: 71260

== ENCOUNTER 2023-11-01 06:00 | Day surgery (SDC) | payer OTHER ==
[2023-11-01] MEDS ORDERED: LACTATED RINGERS 1,000 ML BAG ONE (07:00)
[2023-11-01] MEDS ORDERED: DEXAMETHASONE SOD PHOSPHATE 4 MG/ML 1 ML VIAL ONE ×2 (07:06)
[2023-11-01] MEDS ORDERED: ONDANSETRON 4 MG/2 ML VIAL ONE ×2 (07:06)
[2023-11-01] MEDS ORDERED: SUCCINYLCHOLINE CHLORIDE 200 MG/10 ML VIAL IV ONE (07:12)
[2023-11-01] MEDS ORDERED: fentaNYL (PF) 50 MCG/ML 2 ML AMP ONE (07:12)
[2023-11-01] MEDS ORDERED: PROPOFOL 10 MG/ML 20 ML VIAL IV ONE (07:12)
[2023-11-01] MEDS ORDERED: LIDOCAINE 1% INJ 10MG/ML (20 ML MDV) ONE (07:12)
[2023-11-01] MEDS ORDERED: LIDOCAINE 2% SYG (PF) 100 MG/5 ML ONE (08:06)
[2023-11-01] MEDS ORDERED: IPRATROPIUM-ALBUTEROL 3 ML NEB ONE (08:10)
--- NOTE | 2023-11-08 08:51 | XR ---
Patient: Antonio Del Cid Ordering Physician: Unknown, Unknown ID: [id number] Phone, Pager: Phone: N/A Pager: N/A : N/A Age/Gender: N/A, M Primary Location: N/A Procedure: 1V CXR Study Date: 11/01/2023 8:09:00 AM EXAMINATION TYPE: XR chest 1V DATE OF EXAM: 11/01/2023 COMPARISON: NONE HISTORY: Male patient post bronchoscopy TECHNIQUE: Single frontal view of the chest is obtained. FINDINGS: Large patient body habitus, the densities in the lungs. Heart is borderline in size. Interstitial and patchy opacities especially in the mid and lower lungs. Possible right apical nodularity. Correlate with any available outside priors. IMPRESSION: Interstitial and patchy opacities in mid and lower lungs of unknown chronicity. Borderli ne heart size. Possible right apical nodularity. Correlate with any available outside priors. No appr eciable pneumothorax.
--- NOTE | 2023-12-10 18:20 | FL ---
EXAMINATION TYPE: FL bronchoscopy DATE OF EXAM: 11/12/2023 12:05 PM COMPARISON: Pre Operative Images if available both CT/MRI or plain film CLINICAL INDICATION: Male, 63 years old with history of BRONCH BX OF LUNG RT SIDE; TECHNIQUE: FL bronchoscopy, multiple fluoroscopic images provided for procedure. Total fluoroscopy time: 30 seconds Total submitted images to PACS: 6 DAP: [phone] mGym2 Gycm2 uGym2 cGycm2 or equivalent. FINDINGS: ION bronchoscopy images demonstrate bronchoscope terminating in the lung. No immediate complications identified, no pneumothorax identified. IMPRESSION: 1. No evidence for intraoperative complication. 2. Please see the operative/procedural note for further details. [facility], , 12/10/2023 6:17 PM
== END 2023-11-01 09:09 ==
LOC: ORWHC2ENDO 06:00
PROVIDERS: ATTEND Internal Medicine
DX: J84.89 Other specified interstitial pulmonary diseases
CPT/HCPCS: 31624; 31628; 71045; 87070; 87102; 87116; 87205; 87206; 88108; 88305; 89050

== ENCOUNTER → 2023-11-07 | Outpatient (CLI) | payer OTHER ==
[2023-11-08 14:41] LABS: C-ANCA <1:20 Titer (<1:20)
== END ==
LOC: LABWHC1 09:03
PROVIDERS: ATTEND Internal Medicine
DX: Z00.00 Encounter for general adult medical examination without abnormal findings (principal)
CPT/HCPCS: 36415; 85652; 86038; 86255; 86606; 86612; 86635; 86698